=== PATIENT | female | born 1965 | race Caucasian/White ===

== ENCOUNTER → 2019-06-17 13:06 | Outpatient (BNVA) | payer MEDICAID, SELFPAY | PROVIDERS: Family Provider Family Medicine; Visit Provider Nurse Practitioner Psychiatric/Mental Health | DX: F02.81 Dementia in other diseases classified elsewhere, unspecified severity, with behavioral disturbance (principal); F10.21 Alcohol dependence, in remission; F43.12 Post-traumatic stress disorder, chronic; F31.81 Bipolar II disorder; Z87.820 Personal history of traumatic brain injury | CPT/HCPCS: 99213 ==

== ENCOUNTER → 2019-09-09 16:00 | Outpatient (BNVA) | payer MEDICAID, SELFPAY | PROVIDERS: Family Provider Family Medicine; Visit Provider Nurse Practitioner Psychiatric/Mental Health | DX: F02.81 Dementia in other diseases classified elsewhere, unspecified severity, with behavioral disturbance (principal); F43.12 Post-traumatic stress disorder, chronic; F31.81 Bipolar II disorder; F10.21 Alcohol dependence, in remission; Z87.820 Personal history of traumatic brain injury; F41.0 Panic disorder [episodic paroxysmal anxiety] | CPT/HCPCS: 99213 ==

== ENCOUNTER → 2019-12-09 09:55 | Outpatient (BNVA) | payer MEDICAID, SELFPAY | PROVIDERS: Family Provider Family Medicine; Visit Provider Nurse Practitioner Psychiatric/Mental Health | DX: F43.12 Post-traumatic stress disorder, chronic (principal); F31.81 Bipolar II disorder; F02.81 Dementia in other diseases classified elsewhere, unspecified severity, with behavioral disturbance; F10.21 Alcohol dependence, in remission; Z87.820 Personal history of traumatic brain injury | CPT/HCPCS: 99213 ==

== ENCOUNTER 2019-12-14 12:23 | Outpatient (CLI) | payer MEDICAID, SELFPAY ==
--- NOTE | 2019-12-14 12:29 | XRR_ITS ---
PROCEDURE INFORMATION: Exam: XR Chest, 2 Views Exam date and time: 12/14/2019 12:41 PM Age: 54 years old Clinical indication: Patient HX: HX of copd TECHNIQUE: Imaging protocol: XR of the chest Views: 2 views. COMPARISON: No relevant prior studies available. FINDINGS: Lungs: The lungs are hyperexpanded consistent with COPD No consolidation. Pleural space: Unremarkable. No pleural effusion. No pneumothorax. Heart/Mediastinum: Unremarkable. No cardiomegaly. Bones/joints: Dorsal spine with severe osteopenia, moderate osteoarthritis, and mild kyphosis. there is a old rib fracture right 7th posterolateral rib XR/XR chest 2V* [id number] IMPRESSION: 1. COPD 2. Negative for acute abnormality 3. Dorsal spine osteopenia, osteoarthritis, and mild kyphosis 4. Old rib fracture right 7th rib
== END 2019-12-14 12:24 | disposition home or self-care (01) ==
LOC: RAD 12:26
PROVIDERS: PCP Family Medicine; Visit Provider Internal Medicine Pulmonary Disease
DX: J44.9 Chronic obstructive pulmonary disease, unspecified (principal); M85.89 Other specified disorders of bone density and structure, multiple sites; M47.819 Spondylosis without myelopathy or radiculopathy, site unspecified; M40.299 Other kyphosis, site unspecified; S22.31XA Fracture of one rib, right side, initial encounter for closed fracture; X58.XXXA Exposure to other specified factors, initial encounter
CPT/HCPCS: 71046

== ENCOUNTER → 2020-01-09 11:14 | Outpatient (BNVA) | payer MEDICAID, SELFPAY | PROVIDERS: PCP Family Medicine; Visit Provider Internal Medicine | DX: J44.9 Chronic obstructive pulmonary disease, unspecified (principal) | CPT/HCPCS: 87635 ==

== ENCOUNTER 2020-01-11 10:09 | Outpatient (CLI) | payer MEDICAID, SELFPAY ==
[2020-01-11 10:59] VITALS: BP 143/86
--- NOTE | 2020-01-11 11:11 | PFTS_ITS ---
Date of Study:01/11/20 Date of Dictation: MECHANICS: Forced vital capacity (FVC) is reduced. Forced expiratory volume in one second (FEV1) is reduced. FEV1/FVC is reduced. FLOW VOLUME LOOP: Reduced flow at all lung volumes with significant scooping. LUNG VOLUMES: Total lung capacity (TLC) is increased. Residual volume (RV) is increased. DIFFUSING CAPACITY FOR CARBON MONOXIDE: Normal. INTERPRETATION: The pulmonary function tests are consistent with very severe airflow obstruction. The patient has significant postbronchodilator response. Lung volumes are consistent with hyperinflation and air trapping. Gas exchange (DLCO) is surprisingly normal. MTDD
== END 2020-01-11 10:10 | disposition home or self-care (01) ==
LOC: RT 10:10
PROVIDERS: PCP Family Medicine; Visit Provider Internal Medicine Pulmonary Disease
DX: J44.9 Chronic obstructive pulmonary disease, unspecified (principal)
CPT/HCPCS: 94060; 94618; 94726; 94729; J7611

== ENCOUNTER 2020-02-08 11:43 | Outpatient (CLI) | payer MEDICAID, SELFPAY ==
--- NOTE | 2020-02-08 12:00 | USCV_ITS ---
Linda Aguero Age: 55 Gender: F : 1965 Exam Date: 02/08/2020 11:51 Ordering Phys: Efraín Reynolds MD Technologist: Eileen Ni Exam Location: [facility] Indication: PHTN SOB BP: / HR: 75 Rhythm: Sinus Technical Quality: Adequate MEASUREMENTS (Male / Female) Normal Values 2D ECHO LV Diastolic Diameter PLAX 3.5 cm 4.2 - 5.9 / 3.9 - 5.3 cm LV Systolic Diameter PLAX 2.6 cm LV Chamber Size 3.0 cm IVS Diastolic Thickness 1.0 cm 0.6 - 1.0 / 0.6 - 0.9 cm IVS Systolic Thickness 1.2 cm LVPW Diastolic Thickness 1.1 cm 0.6 - 1.0 / 0.6 - 0.9 cm LVPW Systolic Thickness 1.1 cm RV Chamber Size 1.8 cm LVOT Diameter 2.0 cm LV Ejection Fraction 2D Teich 52.9 % LV Ejection Fraction MOD 2C 70.6 % LV Ejection Fraction 2C AL 70.6 % LA Diameter 2.6 cm LA Width 1.8 cm LA Height 3.3 cm RA Width 3.1 cm RA Height 3.0 cm Aorta at Sinotubular Diameter 2.8 cm M-MODE LV Diastolic Diameter MM 2.8 cm 4.2 - 5.9 / 3.9 - 5.3 cm LV Systolic Diameter MM 1.9 cm LV Ejection Fraction MM Teich 62.6 % IVS Diastolic Thickness MM 0.6 cm 0.6 - 1.0 / 0.6 - 0.9 cm IVS Systolic Thickness MM 1.0 cm LVPW Diastolic Thickness MM 0.7 cm 0.6 - 1.0 / 0.6 - 0.9 cm LVPW Systolic Thickness MM 1.3 cm RV Diastolic Diameter MM 0.8 cm Aortic Annulus Diameter 2.9 cm LA Ao Ratio MM 1.1 MV E Point Septal Separation 0.4 cm DOPPLER AV Peak Velocity 138.0 cm/s LVOT Peak Velocity 91.0 cm/s AV Area Cont Eq vti 2.4 cm squared AV Area Cont Eq pk 2.1 cm squared MV Area PHT 3.6 cm squared Mitral E to A Ratio 1.3 MV E' Velocity 54.5 cm/s Mitral E to MV E' Ratio 6.2 Mitral E to LV E' Lateral Ratio 6.0 Mitral E to LV E' Septal Ratio 6.4 TR Peak Velocity 175.0 cm/s TR Peak Gradient 12.2 mmHg TR Mean Velocity 127.7 cm/s TR Mean Gradient 7.2 mmHg TR Velocity Time Integral 38.5 cm TV Peak E Velocity 91.0 cm/s Right Atrial Pressure 3.0 mmHg Pulmonary Artery Systolic Pressu 15.2 mmHg PV Peak Velocity 60.0 cm/s RV Acceleration Time 0.1 s RV Ejection Time 0.3 s RV AcT/ET 0.5 FINDINGS Left Ventricle Normal left ventricular cavity size. Normal left ventricular systolic function. No regional wall motion abnormalities. Left ventricular ejection fraction is estimated at 62 %. Normal diastolic function. Right Ventricle The right ventricle is normal in size and function. Right Atrium The right atrium is normal in size. Left Atrium The left atrium is normal in size. Mitral Valve Structurally normal mitral valve without significant stenosis or prolapse. There is no mitral regurgitation. Aortic Valve Structurally normal aortic valve without significant sclerosis or stenosis. There is no aortic regurgitation. Tricuspid Valve Structurally normal tricuspid valve without significant stenosis or regurgitation. Pulmonary artery systolic pressure is normal. Pulmonic Valve Structurally normal pulmonic valve without significant stenosis. There is no pulmonic regurgitation. Pericardium Normal pericardium without effusion. Aorta Normal ascending aorta dimension. CONCLUSIONS 1-Normal left ventricular cavity size. Normal left ventricular systolic function. No regional wall motion abnormalities. Left ventricular ejection fraction is estimated at 62 %. Normal diastolic function. 2-No significant valve abnormalities. 3-There is no pericardial effusion. 4-Pulmonary artery systolic pressure is within normal limits. 5-Right atrial pressure is around 5 mm of mercury. 6-There are no prior echocardiogram studies to compare. Karey Hancock MD (Electronically Signed) Final Date: 09 February 2020 18:52 S
--- NOTE | 2020-02-08 13:00 | CT_ITS ---
WS: [id number] CT CHEST WITHOUT INTRAVENOUS CONTRAST HISTORY: check for parenchymal changes TECHNIQUE: Contiguous 5 mm axial imaging performed on the thorax. Coronal and sagittal reformats are submitted. All CT scans at [facility] use at least one of these dose optimization techniq ues: automated exposure control; mA and/or kV adjustment per patient size (includes targeted exams wh ere dose is matched to clinical indication); or iterative reconstruction. CONTRAST: None DLP: 316.32 mGy.cm COMPARISON: None available. Lungs and central airway: Marked pulmonary hyperexpansion. Centrilobular emphysema. No suspicious mas ses are identified. Benign granuloma in the lingula. There is no evidence for honeycombing or signifi cant reticular nodular thickening in the periphery of the lungs. Pleura: Normal. No pleural effusion. Heart and pericardium: Normal size heart with no pericardial effusion. Mediastinum and kathie: No mediastinum or hilar adenopathy. Vessels: Mild atherosclerosis aorta. No aneurysm. Chest wall and lower neck: No soft tissue masses. Upper abdomen: Large hiatal hernia. There is mild thickening of the distal esophagus beginning below the level of the giancarlo along with the hiatal hernia. Osseous structures: Mild increase in upper thoracic kyphosis. Healed rib fractures in the lateral LEF T upper thorax. Additional fracture with incomplete callus formation in the posterior RIGHT lower tho rax. CT/CT chest wo con [id number] IMPRESSION: 1. Severe centrilobular emphysema. 2. No evidence for reticular nodular lung disease or honeycombing. 3. Large hiatal hernia.
== END 2020-02-08 11:44 | disposition home or self-care (01) ==
LOC: SLEEP 11:45
PROVIDERS: PCP Family Medicine; Visit Provider Internal Medicine Pulmonary Disease
DX: G47.34 Idiopathic sleep related nonobstructive alveolar hypoventilation (principal); Z99.81 Dependence on supplemental oxygen; J44.9 Chronic obstructive pulmonary disease, unspecified; R06.02 Shortness of breath; K44.9 Diaphragmatic hernia without obstruction or gangrene
CPT/HCPCS: 71250; 93306; 94762

== ENCOUNTER → 2020-02-28 07:39 | Outpatient (BNVA) | payer MEDICAID, SELFPAY | PROVIDERS: PCP Family Medicine; Visit Provider Nurse Practitioner Psychiatric/Mental Health | DX: F43.12 Post-traumatic stress disorder, chronic (principal); F31.81 Bipolar II disorder; F10.21 Alcohol dependence, in remission; F02.81 Dementia in other diseases classified elsewhere, unspecified severity, with behavioral disturbance; Z87.820 Personal history of traumatic brain injury | CPT/HCPCS: 99213 ==

== ENCOUNTER → 2020-05-24 07:31 | Outpatient (BNVA) | payer MEDICAID, SELFPAY | PROVIDERS: PCP Family Medicine; Visit Provider Nurse Practitioner Psychiatric/Mental Health | DX: F43.12 Post-traumatic stress disorder, chronic (principal); F31.81 Bipolar II disorder; F02.81 Dementia in other diseases classified elsewhere, unspecified severity, with behavioral disturbance; F10.21 Alcohol dependence, in remission; Z79.899 Other long term (current) drug therapy | CPT/HCPCS: 99214 ==

== ENCOUNTER → 2020-08-16 08:09 | Outpatient (BNVA) | payer MEDICAID, SELFPAY | PROVIDERS: PCP Family Medicine; Visit Provider Nurse Practitioner Psychiatric/Mental Health | DX: F43.12 Post-traumatic stress disorder, chronic (principal); F02.81 Dementia in other diseases classified elsewhere, unspecified severity, with behavioral disturbance; F10.21 Alcohol dependence, in remission; F31.81 Bipolar II disorder; Z79.899 Other long term (current) drug therapy; Z87.820 Personal history of traumatic brain injury | CPT/HCPCS: 99214 ==

== ENCOUNTER 2020-08-21 20:00 | Outpatient (CLI) | payer MEDICAID, SELFPAY | END 2020-08-21 20:01 | disposition home or self-care (01) | LOC: SLEEP 08-22 10:20 | PROVIDERS: PCP Family Medicine; Visit Provider Internal Medicine Pulmonary Disease | DX: G47.33 Obstructive sleep apnea (adult) (pediatric) (principal); G47.34 Idiopathic sleep related nonobstructive alveolar hypoventilation | CPT/HCPCS: 95810 ==

== ENCOUNTER 2020-08-31 13:58 | Emergency (ER) | payer MEDICAID, SELFPAY ==
[2020-08-31] VITALS (7 sets, daily range): BP systolic 101–113; BP diastolic 74–83; PULSE 85–106; RESP 16–20; TEMP 37.6; O2SAT 94–98; BMI 20.9
--- NOTE | 2020-08-31 14:20 | XR_ITS ---
WS: [id number] Portable AP upright chest, 08/31/2020 Clinical Data: dyspnea Comparison: PA and lateral chest, 12/14/2019. Findings: No nodules, masses or effusions are seen. The heart is normal. The pulmonary vascularity is not increased. No pneumonia or pneumothorax is seen. The diaphragms are flattened. The aortic arch i s minimally tortuous. There are monitor leads on the chest wall. The old right fifth, seventh and eig hth rib fractures are noted. There are old left seventh, eighth and ninth rib fractures XR/XR chest 1V portable [id number] Impression: Atherosclerosis and hyperinflation.
--- NOTE | 2020-08-31 14:22 | ECG_ITS ---
[facility] Test Date: 2020-08-31 Pat Name: Linda Aguero Department: Room: Gender: Female Box Bender: : 1965 Requested By: Arian Pickard Order Number: [id number] Merrill MD: SABRINA RODRIGUEZ Measurements Intervals Mcgregor Rate: 100 P: 72 ME: 133 QRS: 72 QRSD: 85 T: 49 QT: 334 QTc: 433 Interpretive Statements SINUS TACHYCARDIA ABNORMAL RHYTHM ECG No previous ECG available for comparison Electronically Signed On 08-31-2020 21:19:25 CDT by SABRINA RODRIGUEZ [id number]
[2020-08-31 14:30] LABS: Basophils # 0.1 10^3/uL (0.0-0.1); Basophils % 0.3 %; Eosinophils % 0.2 %; Hematocrit 39.7 % (37.0-47.0); Hemoglobin 13.1 g/dL (11.5-15.3); Lymphocytes % 8.3 %; Mean Corpuscular Volume 90.8 fL (81-99); Monocytes # 2.1 10^3/uL (0.2-0.9); Monocytes % 8.5 %; Neutrophils # 19.92 10^3/uL (1.8-7.7); Nucleated Red Blood Cells % 0 %; Platelet Count 332 10^3/cmm (130-400); Red Blood Count 4.37 10^6/uL (4.1-5.3); Red Cell Distribution Width 12.2 % (12.1-15.1); White Blood Count 24.3 10^3/uL (4.0-10.0)
[2020-08-31 14:56] LABS: D Dimer <= 0.27 ug/mIFEU (0-0.59)
[2020-08-31] MEDS: sodium chloride 0.9% 1,000 ML 999 ML IV (14:58)
[2020-08-31 15:17] LABS: Troponin(5th) Baseline 7 ng/L (0-10)
[2020-08-31 15:23] LABS: Alanine Aminotransferase 11 U/L (0-33); Albumin Level 4.3 g/dL (3.5-5.2); Alkaline Phosphatase 89 IU/L (35-105); Anion Gap 15.2 (5-19); Aspartate Amino Transferase 18 U/L (0-32); Blood Urea Nitrogen 4 mg/dL (6-20); Calcium 8.7 mg/dL (8.5-10.5); Carbon Dioxide 31 mmol/L (22-29); Chloride 86 mmol/L (98-107); Globulin 2.5 g/dL (1.3-4.6); Glomerular Filtration Rate 232.7 mL/min (90-130); Glucose 93 mg/dL (65-115); NT Pro B Type Natriuretic Pept 152 pg/mL (0-125); Osmolality Calculated 263 mOsm/kg (285-295); Potassium 4.2 mmol/L (3.5-5.1); Sodium 128 mmol/L (136-145); Total Bilirubin 0.3 mg/dL (0.15-1.2); Total Protein 6.8 g/dL (6.6-8.7)
[2020-08-31 15:39] LABS: Influenza A by IFA Negative (Negative); Influenza B by IFA Negative (Negative)
[2020-08-31] MEDS: ipratropium-albuterol 3 mL Neb INHALATION (15:40)
--- NOTE | 2020-08-31 15:57 | CTR_ITS ---
PROCEDURE INFORMATION: Exam: CT Head Without Contrast Exam date and time: 08/31/2020 5:33 PM Age: 55 years old Clinical indication: Pain; Patient HX: Fever, headache, SOB TECHNIQUE: Imaging protocol: Computed tomography of the head without contrast. Radiation optimization: All CT scans at this facility use at least one of these dose optimization techniques: automated exposure control; mA and/or kV adjustment per patient size (includes targeted exams where dose is matched to clinical indication); or iterative reconstruction. COMPARISON: No relevant prior studies available. RADIATION DOSE METRICS: Total DLP (mGy-cm): 843.15 FINDINGS: Brain: No evidence of acute infarct. No mass or mass effect. No intra axial hemorrhage. No extra axial fluid collection or hemorrhage. Cerebral ventricles: Symmetric and without enlargement. Bones/joints: No acute fracture. Paranasal sinuses: Visualized sinuses are well aerated. Mastoid air cells: Visualized mastoid air cells are well aerated. Soft tissues: No concerning abnormalities. CT/CT head wo con* [id number] IMPRESSION: No acute intracranial abnormality. Radiation Dose CTDIVOL = (mGy): DLP = 843.15 (mGy-cm)
--- NOTE | 2020-08-31 15:57 | CTR_ITS ---
PROCEDURE INFORMATION: Exam: CT Chest Without Contrast; Diagnostic Exam date and time: 08/31/2020 5:33 PM Age: 55 years old Clinical indication: Shortness of breath; Additional info: White count 24. Cough, SOB, fever, headache TECHNIQUE: Imaging protocol: Diagnostic computed tomography of the chest without contrast. Radiation optimization: All CT scans at this facility use at least one of these dose optimization techniques: automated exposure control; mA and/or kV adjustment per patient size (includes targeted exams where dose is matched to clinical indication); or iterative reconstruction. COMPARISON: CT chest con [id number] 02/08/2020 12:35 PM RADIATION DOSE METRICS: Total DLP (mGy-cm): 306.35 FINDINGS: Lungs: Changes of advanced centrilobular emphysema demonstrated. 4 cm focus of consolidation noted in the posterior portion of the right lower lobe, likely representing nonspecific pneumonia. 1.5 cm focus of non confluent increased density demonstrated in the left upper lobe, series 3, image 17, which may represent a 2nd focus of early pneumonia. 4 mm calcified granuloma left lower lobe. Pleural spaces: No pleural effusion or pneumothorax noted. Heart: No cardiomegaly. No pericardial effusion. Aorta: No aortic aneurysm. Lymph nodes: There is a hiatal hernia noted.No pathologically enlarged lymph nodes are demonstrated. Bones/joints: Old healed rib fractures. No acute osseous abnormality. Soft tissues: The soft tissues appear unremarkable. CT/CT chest con [id number] IMPRESSION: 1. Changes of advanced centrilobular emphysema demonstrated. 2. 4 cm focus of consolidation noted in the posterior portion of the right lower lobe, likely representing nonspecific pneumonia. 3. 1.5 cm focus of non confluent increased density demonstrated in the left upper lobe, series 3, image 17, which may represent a 2nd focus of early pneumonia. Radiation Dose CTDIVOL = (mGy): DLP = 306.35 (mGy-cm)
--- NOTE | 2020-08-31 16:02 | CTR_ITS ---
PROCEDURE INFORMATION: Exam: CT Maxillofacial Without Contrast, Sinus Exam date and time: 08/31/2020 5:33 PM Age: 55 years old Clinical indication: Pain; Patient HX: Headache, SOB, fever; Additional info: Sinus infection? TECHNIQUE: Imaging protocol: CT Maxillofacial without contrast. Focus on the sinuses. Radiation optimization: All CT scans at this facility use at least one of these dose optimization techniques: automated exposure control; mA and/or kV adjustment per patient size (includes targeted exams where dose is matched to clinical indication); or iterative reconstruction. COMPARISON: No relevant prior studies available. RADIATION DOSE METRICS: Total DLP (mGy-cm): 511.79 FINDINGS: Frontal sinuses: Normal. No air-fluid levels. Ethmoid air cells: Normal. No air-fluid levels. Sphenoid sinuses: Normal. No air-fluid levels. Maxillary sinuses: Moderate mucosal thickening. No air-fluid levels. Ostiomeatal units are narrowed, but patent. Nasal cavity/Septum: Unremarkable. Orbital cavity: Orbits are normal. Globes are unremarkable. Bones/joints: Unremarkable. Soft tissues: Unremarkable. CT/CT sinus wo con* [id number] IMPRESSION: Moderate mucosal thickening of the maxillary sinuses. No signs of acute sinusitis. Radiation Dose CTDIVOL = (mGy): DLP = 511.79 (mGy-cm)
[2020-08-31 16:17] LABS: Lactic Sepsis W/Reflex 0.7 mmol/L (0.5-2.2)
--- NOTE | 2020-08-31 16:22 | PC.PHAR ---
PT STATES SHE HAS A NURSE THAT SETS UP HER MEDICATIONS-PT BROUGHT IN HER MED BOTTLES-GOT MED LIST FROM [facility] AT HOME-MEDICATIONS ENTERED ARE FROM EXT MED HISTORY,MED LIST FROM [facility] [place] AND MEDICATION BOTTLES THE PT BROUGHT IN- NOTES ARE MADE ON EACH RX OF THE PHARMACY COMMENTS-
[2020-08-31 17:37] LABS: SARS Covid-2 Antigen Negative (Negative)
--- NOTE | 2020-08-31 19:01 | W.ED.SOB ---
HPI - SOB/Dyspnea General: Chief Complaint: Shortness of Breath/Dyspnea Stated Complaint: sob/fever Time Seen by Provider: 08/31/20 14:05 History of Present Illness: HPI Narrative: The patient is a 55-year-old female who comes to the ER complaining of fever and shortness of breath. She has COPD and chronically wears 3 L oxygen at her baseline. She has oxygen at home that she uses. She also admits headache related to coughing. Denies neck pain or stiffness. Denies chest pain. She has been complaining of sinus congestion and clogging of her nose which makes her shortness of breath worse. It has just cleared prior to coming to the ER and she does feel better from that aspect. MD elicited complaint: shortness of breath and cough Pertinent past history: COPD Severity: moderate Exacerbating factors: exertion Known history of: COPD Associated symptoms: Reports cough and fever(s); Deny chest pain, dizziness, extremity pain, nausea, polyuria or vomiting Treatment prior to arrival: none Review of Systems General: Reports: 10 or more systems reviewed and unremarkable except in HPI and below Const: Reports: fever(s), chills and fatigue Eyes: Denies: change in vision, blurry vision or eye redness ENMT: Denies: throat pain, swelling of lips/tongue, ear or mastoid pain or nasal congestion Card: Denies: chest pain Resp: Reports: dyspnea and non-productive cough; Denies: productive cough GI: Denies: nausea or vomiting : Denies: flank pain, difficulty voiding, urinary frequency or urinary urgency Musc: Denies: neck pain, back pain, extremity pain, joint pain, joint redness, limited range of motion or muscle weakness Skin/Breast: Denies: rash, pruritus, erythema, skin pain or skin tenderness Neuro: Denies: headache(s), numbness in extremities, weakness in extremities, sensory changes, difficulty walking, dizziness, confusion or Slurred speech present Psych: Denies: anxiety or depression Endo: Denies: polyuria All/Imm: Denies: urticaria, throat swelling or tongue swelling PFSH ED PFSH: Medical History (Updated 08/31/20 @ 19:16 by Arian Pickard MD) Alcohol use disorder, moderate, in early remission Bipolar II disorder Provisional Chronic post-traumatic stress disorder Dementia associated with other underlying disease with behavioral disturbance Personal history of traumatic brain injury Social History (Updated 07/31/20 @ 11:37 by Pipe Barnes LPN) Smoking and tobacco status: former smoker Quit status (tobacco): has quit using tobacco Year quit tobacco: 2018 - 2PPD x 35 Years Second hand smoke exposure: Yes Smoking risk assessment/counseling performed?: No Alcohol intake: never Lives independently: Yes Household members: family Marital status: Current occupational status: disabled Pets and animals: No History of recent travel: No Current gender identity: Female Physical Exam Narrative: EXAM NARRATIVE: Elevated temperature 99.7 on arrival. 98.1 just before she left. Const: COMMON NORMALS: no acute distress, average body habitus, patient oriented x3, no limitations, healthy appearing, alert and well nourished GENERAL APPEARANCE: cooperative, comfortable, well kempt and well developed ORIENTATION/CONSCIOUSNESS: Yes awake, Yes oriented to person, Yes oriented to place and Yes oriented to time HENMT: COMMON NORMALS: normocephalic, external ears normal and Normal external nose present HEAD & SCALP: normal to inspection and normocephalic NOSE: Normal external nose present EXTERNAL EAR: Yes external ears normal MOUTH: Normal oral and palatal mucosa present THROAT: posterior oropharynx normal Eye: COMMON NORMALS: Equal, round and reactive pupils present and EOMs intact bilaterally GENERAL EYE: appearance normal, both eyes and all related structures PUPIL: Yes Equal, round and reactive pupils present Neck/C-Spine: COMMON NORMALS: full ROM, no lymphadenopathy, no meningeal signs and no JVD GENERAL: Yes normal visual inspection Lymph: LYMPHATIC: no lymphadenopathy noted Chest: COMMONS NORMALS: normal inspection of the chest and normal palpation of entire chest wall Resp: COMMON NORMALS: normal respiratory effort, No retractions, No use of accessory muscles, clear to auscultation bilaterally and percussion normal EFFORT & INSPECTION: Yes able to speak in complete sentences AUSCULTATION: clear to auscultation bilaterally and diminished lung sounds PERCUSSION: percussion normal Cardio: COMMON NORMALS: no JVD, regular rate, regular rhythm, S1 normal heart sound present, S2 normal heart sound present and Peripheral pulses 2+ throughout RATE: regular rate RHYTHM: regular rhythm HEART SOUNDS: S1 normal heart sound present and S2 normal heart sound present PERIPHERAL PULSES: Peripheral pulses 2+ throughout GI: COMMON NORMALS: Normal to inspection, nondistended, normoactive bowel sounds present, Soft to palpation, non-tender and no masses INSPECTION: Yes normal to inspection PALPATION: Yes Soft to palpation : COMMON NORMALS: Yes no CVA tenderness BLADDER/KIDNEY EXAM: Yes no CVA tenderness Back/Pelvis: COMMON NORMALS: no CVA tenderness, thoracic and lumbar spine normal to inspection, no thoracic nor lumbar tenderness and thoraco-lumbar ROM normal Extremity: COMMON NORMALS: normal to inspection, full ROM, capillary refill normal, no joint enlargement and no pedal edema GENERAL: Yes normal exam except as noted Neuro: COMMON NORMALS: patient oriented x3, CN's II-XII intact bilaterally, moves all extremities, no focal motor deficits, no sensory deficits noted and gait normal SENSORIUM/ORIENTATION: Yes alert, Yes oriented to person, Yes oriented to place and Yes oriented to time MENINGEAL SIGNS: Yes no meningeal signs Psych: COMMON NORMALS: mental status grossly normal, Normal thought process present, cooperative, normal affect and speech normal APPEARANCE: Yes well kempt ATTITUDE: Yes calm SPEECH: Yes normal speech THOUGHT PROCESS: Normal thought process present Skin: COMMON NORMALS: no rashes or lesions noted GENERAL SKIN EXAM: no rashes or lesions noted Course Vital Signs: Vital signs: Vital Signs Temperature 99.7 F H 08/31/20 14:03 Pulse Rate 103 H 08/31/20 17:04 Respiratory Rate 20 H 08/31/20 17:04 Blood Pressure 106/76 08/31/20 17:04 Pulse Oximetry 94 08/31/20 17:04 MDM - SOB/Dyspnea MDM Narrative: Medical decision making narrative: Patient comes in complaining of shortness of breath with a white count of 24, temp 99 7. She is in no respiratory distress wearing her baseline 3 L. She complains of nasal congestion, cough, and shortness of breath. She was given a neb which did help with her shortness of breath and she is back to her baseline. Also given Solu-Medrol. CT of her chest does show a couple areas of focal pneumonia. CT of her head is normal and CT of her sinus does show some mucosal thickening. She was given levofloxacin 750 mg and recommended she take that daily with a Medrol Dosepak, and albuterol to help with her shortness of breath. Return to the ER at anytime with worsening symptoms and follow-up with primary care doctor Thursday to get her white count and sodium rechecked. Slightly low sodium at 128. Discussed with her the causes of this are unknown and she should get it rechecked Thursday. She will do so. Lab Data: Labs: Lab Results 08/31/20 08/31/20 08/31/20 Range/Units 13:35 13:35 13:35 WBC 24.3 H (4.0-10.0) 10^3/ uL RBC 4.37 (4.1-5.3) 10^6/u L Hgb 13.1 (11.5-15.3) g/dL Hct 39.7 (37.0-47.0) % MCV 90.8 (81-99) fL MCH 30.0 (28.0-34.0) pg MCHC 33.0 (30.0-36.0) g/dL RDW 12.2 (12.1-15.1) % Plt Count 332 (130-400) 10^3/c mm MPV 10.0 (7.4-10.4) fL Neut % (Auto) 82.0 % Lymph % (Auto) 8.3 % [place] % (Auto) 8.5 % Eos % (Auto) 0.2 % Baso % (Auto) 0.3 % Neut # (Auto) 19.92 H (1.8-7.7) 10^3/u L Lymph # (Auto) 2.0 (0.8-4.8) 10^3/u L [place] # (Auto) 2.1 H (0.2-0.9) 10^3/u L Eos # (Auto) 0.0 (0.0-0.8) 10^3/u L Baso # (Auto) 0.1 (0.0-0.1) 10^3/u L Nucleated RBC % (a uto) 0 % Nucleated RBCs # 0.0 /100WBC D-Dimer <= 0.27 (0-0.59) ug/mIFE U Sodium 128 L (136-145) mmol/L Potassium 4.2 (3.5-5.1) mmol/L Chloride 86 L (98-107) mmol/L Carbon Dioxide 31 H (22-29) mmol/L Anion Gap 15.2 (5-19) BUN 4 L (6-20) mg/dL Creatinine 0.3 L (0.5-0.9) mg/dL GFR Calculation 232.7 H (90-130) mL/min Glucose 93 (65-115) mg/dL Calculated Osmolal ity 263 L (285-295) mOsm/k g Lactic Acid Calcium 8.7 (8.5-10.5) mg/dL Total Bilirubin 0.3 (0.15-1.2) mg/dL AST 18 (0-32) U/L ALT 11 (0-33) U/L Alkaline Phosphata se 89 (35-105) IU/L Troponin T Baselin e (0-10) ng/L Troponin T 120 Min [place] (0-10) ng/L Delta Troponin T (0-10) ABS# NT-Pro-B Natriuret Pep 152 H (0-125) pg/mL Total Protein 6.8 (6.6-8.7) g/dL Albumin 4.3 (3.5-5.2) g/dL Globulin 2.5 (1.3-4.6) g/dL Influenza Type A A g (Negative) Influenza Type B A g (Negative) SARS-CoV-2 Ag (Rap id) (Negative) 08/31/20 08/31/20 08/31/20 Range/Units 13:35 14:40 15:02 WBC (4.0-10.0) 10^3/ uL RBC (4.1-5.3) 10^6/u L Hgb (11.5-15.3) g/dL Hct (37.0-47.0) % MCV (81-99) fL MCH (28.0-34.0) pg MCHC (30.0-36.0) g/dL RDW (12.1-15.1) % Plt Count (130-400) 10^3/c mm MPV (7.4-10.4) fL Neut % (Auto) % Lymph % (Auto) % [place] % (Auto) % Eos % (Auto) % Baso % (Auto) % Neut # (Auto) (1.8-7.7) 10^3/u L Lymph # (Auto) (0.8-4.8) 10^3/u L [place] # (Auto) (0.2-0.9) 10^3/u L Eos # (Auto) (0.0-0.8) 10^3/u L Baso # (Auto) (0.0-0.1) 10^3/u L Nucleated RBC % (a uto) % Nucleated RBCs # /100WBC D-Dimer (0-0.59) ug/mIFE U Sodium (136-145) mmol/L Potassium (3.5-5.1) mmol/L Chloride (98-107) mmol/L Carbon Dioxide (22-29) mmol/L Anion Gap (5-19) BUN (6-20) mg/dL Creatinine (0.5-0.9) mg/dL GFR Calculation (90-130) mL/min Glucose (65-115) mg/dL Calculated Osmolal ity (285-295) mOsm/k g Lactic Acid Cancelled Calcium (8.5-10.5) mg/dL Total Bilirubin (0.15-1.2) mg/dL AST (0-32) U/L ALT (0-33) U/L Alkaline Phosphata se (35-105) IU/L Troponin T Baselin e 7 (0-10) ng/L Troponin T 120 Min [place] (0-10) ng/L Delta Troponin T (0-10) ABS# NT-Pro-B Natriuret Pep (0-125) pg/mL Total Protein (6.6-8.7) g/dL Albumin (3.5-5.2) g/dL Globulin (1.3-4.6) g/dL Influenza Type A A g Negative (Negative) Influenza Type B A g Negative (Negative) SARS-CoV-2 Ag (Rap id) (Negative) 08/31/20 08/31/20 08/31/20 Range/Units 15:30 15:40 17:10 WBC (4.0-10.0) 10^3/ uL RBC (4.1-5.3) 10^6/u L Hgb (11.5-15.3) g/dL Hct (37.0-47.0) % MCV (81-99) fL MCH (28.0-34.0) pg MCHC (30.0-36.0) g/dL RDW (12.1-15.1) % Plt Count (130-400) 10^3/c mm MPV (7.4-10.4) fL Neut % (Auto) % Lymph % (Auto) % [place] % (Auto) % Eos % (Auto) % Baso % (Auto) % Neut # (Auto) (1.8-7.7) 10^3/u L Lymph # (Auto) (0.8-4.8) 10^3/u L [place] # (Auto) (0.2-0.9) 10^3/u L Eos # (Auto) (0.0-0.8) 10^3/u L Baso # (Auto) (0.0-0.1) 10^3/u L Nucleated RBC % (a uto) % Nucleated RBCs # /100WBC D-Dimer (0-0.59) ug/mIFE U Sodium (136-145) mmol/L Potassium (3.5-5.1) mmol/L Chloride (98-107) mmol/L Carbon Dioxide (22-29) mmol/L Anion Gap (5-19) BUN (6-20) mg/dL Creatinine (0.5-0.9) mg/dL GFR Calculation (90-130) mL/min Glucose (65-115) mg/dL Calculated Osmolal ity (285-295) mOsm/k g Lactic Acid 0.7 Calcium (8.5-10.5) mg/dL Total Bilirubin (0.15-1.2) mg/dL AST (0-32) U/L ALT (0-33) U/L Alkaline Phosphata se (35-105) IU/L Troponin T Baselin e (0-10) ng/L Troponin T 120 Min [place] 6.00 (0-10) ng/L Delta Troponin T -1.00 L (0-10) ABS# NT-Pro-B Natriuret Pep (0-125) pg/mL Total Protein (6.6-8.7) g/dL Albumin (3.5-5.2) g/dL Globulin (1.3-4.6) g/dL Influenza Type A A g (Negative) Influenza Type B A g (Negative) SARS-CoV-2 Ag (Rap id) Negative (Negative) Discharge Plan Discharge Patient Disposition: Home Clinical Impression: Community acquired pneumonia, Hyponatremia Condition: Stable Prescriptions: New levofloxacin 750 mg tablet 750 mg PO DAILY 10 Days Qty: 10 RF: 0 Medrol ([place]an) 4 mg tablets,dose pack See Rx Instructions .ROUTE .COMPLEX Qty: 21 RF: 0 albuterol sulfate 90 mcg/actuation HFA aerosol inhaler 2 inh inhalation Q6H PRN (Reason: shortness of breath or wheezing) 30 Days RF: 0 No Action lamotrigine [Lamictal] 150 mg tablet 150 mg PO BID RF: 0 topiramate [Topamax] 100 mg tablet 100 mg PO BID RF: 0 memantine [Namenda] 10 mg tablet 10 mg PO BID RF: 0 donepezil [Aricept] 10 mg tablet 10 mg PO BEDTIME RF: 0 tizanidine 4 mg capsule 4 mg PO BEDTIME PRN (Reason: Muscle Spasm) RF: 0 aspirin [Adult Low Dose Aspirin] 81 mg tablet,delayed release (DR/EC) 81 mg PO DAILY RF: 0 Combivent Respimat 20-100 mcg/actuation mist 1 puff INHALATION Q4H PRN (Reason: Shortness Of Breath) RF: 0 meloxicam 15 mg tablet 15 mg PO DAILY RF: 0 ipratropium-albuterol 0.5 mg-3 mg(2.5 mg base)/3 mL solution for nebulization 3 ml INHALATION TID PRN (Reason: Shortness Of Breath) RF: 0 albuterol sulfate [Ventolin HFA] 90 mcg/actuation HFA aerosol inhaler 2 puff INHALATION Q6H PRN (Reason: Shortness Of Breath) RF: 0 aripiprazole [Abilify] 20 mg tablet 20 mg PO QAM Qty: 30 RF: 4 buspirone 15 mg tablet 15 mg PO TID Qty: 90 RF: 4 fluoxetine [Prozac] 40 mg capsule 40 mg PO QAM Qty: 30 RF: 4 Benadryl 25 mg capsule 25 mg PO QAM PRN (Reason: anxiety) RF: 0 Pulmicort 0.5 mg/2 mL suspension for nebulization 0.5 mg inhalation DAILY RF: 0 Perforomist 20 mcg/2 mL solution for nebulization 2 ml inhalation BID RF: 0 Advair Diskus 250-50 mcg/dose Blister With Device 1 inh INHALATION BID RF: 0 Zantac 150 mg Tablet See Rx Instructions .ROUTE .COMPLEX RF: 0 Colace 100 mg Capsule 100 mg PO BID RF: 0 Prilosec 20 mg Capsule,Delayed Release(Dr/Ec) 20 mg PO DAILY RF: 0 montelukast 10 mg Tablet 10 mg PO BEDTIME RF: 0 Flonase 50 mcg/actuation Olar,Suspension 1 spray INTRANASAL DAILY RF: 0 Claritin 10 mg Tablet 10 mg PO DAILY RF: 0 trazodone 50 mg tablet 50 - 100 mg PO BEDTIME PRN (Reason: sleep) RF: 0 Discharge Orders: Discharge ED (Routine); Ordered 08/31/20 Ordered By: Arian Pickard Referrals: Quirino Rios [Primary Care Provider] - Discharge Diet: Advance as tolerated Discharge Activity: Resume usual activity Patient Instructions: Opioid Safety Activity Restrictions/Additional Instructions: Pneumonia: Your CT of your chest shows a couple areas of pneumonia which is likely the cause of your increasing shortness of breath, coughing, fevers. Please take the antibiotic and the steroid to help with your lungs as well. I have also added an albuterol prescription to help you if you get short of breath. You may fill this if you need it. Take the medications as directed and return to the ER with worsening symptoms otherwise follow-up with your primary care physician Thursday or Thursday for a checkup. Also make sure to recheck your white blood cell count as it is elevated significantly to 24. This can be elevated because of infection but also because of the steroids you take. Return to the ER at anytime with worsening symptoms or increasing shortness of breath, fevers, or chest pain. Coding Level of Care Code ED [employer] Opener Verifier Packer for Mariel Serna
[2020-08-31] MEDS: levoFLOXacin 750 mg Tablet PO (19:16)
== END 2020-08-31 19:28 | disposition home or self-care (01) ==
PROVIDERS: Emergency Provider Family Medicine; PCP Family Medicine
DX: J18.9 Pneumonia, unspecified organism (principal); E87.1 Hypo-osmolality and hyponatremia; Z79.82 Long term (current) use of aspirin; F03.90 Unspecified dementia, unspecified severity, without behavioral disturbance, psychotic disturbance, mood disturbance, and anxiety; Z87.891 Personal history of nicotine dependence
CPT/HCPCS: 36415; 70450; 70486; 71045; 71250; 80053; 83605; 83880; 84484; 85025; 85378; 87426; 87804; 93005; 94640; 96361; 96374; 99284; J2930; J7030

== ENCOUNTER → 2020-09-19 09:44 | Outpatient (BNVA) | payer MEDICAID, SELFPAY | PROVIDERS: PCP Family Medicine; Visit Provider Nurse Practitioner Psychiatric/Mental Health | DX: Z79.899 Other long term (current) drug therapy (principal) | CPT/HCPCS: 80053; 80061; 83036 ==

== ENCOUNTER → 2020-11-15 07:15 | Outpatient (BNVA) | payer MEDICAID, SELFPAY | PROVIDERS: PCP Family Medicine; Visit Provider Nurse Practitioner Psychiatric/Mental Health | DX: F02.81 Dementia in other diseases classified elsewhere, unspecified severity, with behavioral disturbance (principal); F10.21 Alcohol dependence, in remission; F43.12 Post-traumatic stress disorder, chronic; F31.81 Bipolar II disorder; Z79.899 Other long term (current) drug therapy; Z87.820 Personal history of traumatic brain injury | CPT/HCPCS: 99214 ==

== ENCOUNTER → 2020-12-20 08:06 | Outpatient (BNVA) | payer MEDICAID, SELFPAY | PROVIDERS: PCP Family Medicine; Visit Provider Nurse Practitioner Psychiatric/Mental Health | DX: F02.81 Dementia in other diseases classified elsewhere, unspecified severity, with behavioral disturbance (principal); F43.12 Post-traumatic stress disorder, chronic; F31.81 Bipolar II disorder; F10.21 Alcohol dependence, in remission; Z79.899 Other long term (current) drug therapy; Z87.820 Personal history of traumatic brain injury | CPT/HCPCS: 99214 ==

== ENCOUNTER → 2021-01-18 07:22 | Outpatient (BNVA) | payer MEDICAID, SELFPAY | PROVIDERS: PCP Family Medicine; Visit Provider Nurse Practitioner Psychiatric/Mental Health | DX: Z79.899 Other long term (current) drug therapy (principal); F02.81 Dementia in other diseases classified elsewhere, unspecified severity, with behavioral disturbance; F10.21 Alcohol dependence, in remission; F43.12 Post-traumatic stress disorder, chronic; F31.81 Bipolar II disorder; Z87.820 Personal history of traumatic brain injury | CPT/HCPCS: 99214 ==

== ENCOUNTER → 2021-04-01 11:35 | Outpatient (BNVA) | payer MEDICAID, SELFPAY | PROVIDERS: PCP Family Medicine; Visit Provider Podiatrist Foot & Ankle Surgery | DX: S91.301A Unspecified open wound, right foot, initial encounter (principal); X58.XXXA Exposure to other specified factors, initial encounter; R60.0 Localized edema | CPT/HCPCS: 73630 ==

== ENCOUNTER → 2021-04-09 07:28 | Outpatient (BNVA) | payer MEDICAID, SELFPAY | PROVIDERS: PCP Family Medicine; Visit Provider Nurse Practitioner Psychiatric/Mental Health | DX: Z79.899 Other long term (current) drug therapy (principal); F02.81 Dementia in other diseases classified elsewhere, unspecified severity, with behavioral disturbance; F10.21 Alcohol dependence, in remission; F31.81 Bipolar II disorder; F43.12 Post-traumatic stress disorder, chronic; Z87.820 Personal history of traumatic brain injury | CPT/HCPCS: 99214 ==

== ENCOUNTER → 2021-05-07 07:39 | Outpatient (BNVA) | payer MEDICAID, SELFPAY | PROVIDERS: PCP Family Medicine; Visit Provider Nurse Practitioner Psychiatric/Mental Health | DX: F31.81 Bipolar II disorder (principal); F43.12 Post-traumatic stress disorder, chronic; F02.81 Dementia in other diseases classified elsewhere, unspecified severity, with behavioral disturbance; F10.21 Alcohol dependence, in remission; Z87.820 Personal history of traumatic brain injury | CPT/HCPCS: 99214 ==

== ENCOUNTER → 2021-06-04 07:30 | Outpatient (BNVA) | payer MEDICAID, SELFPAY | PROVIDERS: PCP Family Medicine; Visit Provider Nurse Practitioner Psychiatric/Mental Health | DX: F31.81 Bipolar II disorder (principal); F43.12 Post-traumatic stress disorder, chronic; F02.81 Dementia in other diseases classified elsewhere, unspecified severity, with behavioral disturbance; F10.21 Alcohol dependence, in remission; Z87.820 Personal history of traumatic brain injury | CPT/HCPCS: 99214 ==

== ENCOUNTER → 2021-07-03 07:27 | Outpatient (BNVA) | payer MEDICAID, SELFPAY | PROVIDERS: PCP Family Medicine; Visit Provider Nurse Practitioner Psychiatric/Mental Health | DX: F31.81 Bipolar II disorder (principal); F43.12 Post-traumatic stress disorder, chronic; F02.81 Dementia in other diseases classified elsewhere, unspecified severity, with behavioral disturbance; F10.21 Alcohol dependence, in remission; Z87.820 Personal history of traumatic brain injury | CPT/HCPCS: 99214 ==

== ENCOUNTER → 2021-08-19 15:30 | Outpatient (BNVA) | payer MEDICAID, SELFPAY | PROVIDERS: PCP Family Medicine; Visit Provider Nurse Practitioner Psychiatric/Mental Health | DX: Z03.89 Encounter for observation for other suspected diseases and conditions ruled out (principal); F31.81 Bipolar II disorder; F02.81 Dementia in other diseases classified elsewhere, unspecified severity, with behavioral disturbance; F10.21 Alcohol dependence, in remission; F43.12 Post-traumatic stress disorder, chronic; Z87.820 Personal history of traumatic brain injury | CPT/HCPCS: 99214 ==

== ENCOUNTER → 2021-09-23 14:43 | Outpatient (BNVA) | payer MEDICAID, SELFPAY | PROVIDERS: PCP Family Medicine; Visit Provider Nurse Practitioner Psychiatric/Mental Health | DX: F31.81 Bipolar II disorder (principal); F02.81 Dementia in other diseases classified elsewhere, unspecified severity, with behavioral disturbance; F10.21 Alcohol dependence, in remission; F43.12 Post-traumatic stress disorder, chronic; Z87.820 Personal history of traumatic brain injury | CPT/HCPCS: 99214 ==

== ENCOUNTER → 2021-10-02 09:59 | Outpatient (BNVA) | payer MEDICAID, SELFPAY | PROVIDERS: PCP Family Medicine; Visit Provider Internal Medicine Pulmonary Disease | DX: J44.9 Chronic obstructive pulmonary disease, unspecified (principal); Z99.81 Dependence on supplemental oxygen; G47.34 Idiopathic sleep related nonobstructive alveolar hypoventilation; J30.9 Allergic rhinitis, unspecified; Z01.818 Encounter for other preprocedural examination; G47.33 Obstructive sleep apnea (adult) (pediatric); U09.9 Post COVID-19 condition, unspecified; Z87.891 Personal history of nicotine dependence | CPT/HCPCS: 80053; 82103; 99214 ==

== ENCOUNTER 2022-01-02 13:22 | Outpatient (CLI) | payer MEDICAID, SELFPAY ==
--- NOTE | 2022-01-02 13:15 | CT_ITS ---
WS: [id number] LDCT LUNG CANCER SCREENING TECHNIQUE: Noncontrast CT of the chest with coronal and sagittal reformatted images. CLINICAL INFORMATION: lung screenin COMPARISON: CT chest August 31, 2020 DLP: 72.01 mGy.cm DIvol: Mean CTDIvol: 1.60 (mGy) All CT scans at [facility] use at least one of these dose optimization techniques: automat ed exposure control; mA and/or kV adjustment per patient size (includes targeted exams where dose is matched to clinical indication); or iterative reconstruction. FINDINGS: Advanced chronic emphysematous changes. Small esophageal hiatal hernia. A few calcified granulomas. P revious described pulmonary opacities in the RIGHT lower lobe and LEFT upper lobe have resolved. No f ocal pneumonia or pleural fluid. Mild bronchiectasis. Slight hazy atelectasis in the lower lobes medi ally. Slight atelectasis or fibrosis in RIGHT upper lobe anteriorly. No suspicious pulmonary parenchy mal opacities. Normal caliber thoracic aorta. No mediastinal or hilar lymphadenopathy. No axillary lymphadenopathy. Adrenal glands are normal. Moderate esophageal hiatal hernia. CT/CT lung screening [id number] IMPRESSION: LUNG-RADS: 2-Benign Appearance or Behavior FOLLOW UP: 12 Month: Continue annual screening with LDCT
== END 2022-01-02 13:23 | disposition home or self-care (01) ==
PROVIDERS: Visit Provider Internal Medicine Pulmonary Disease
DX: Z12.2 Encounter for screening for malignant neoplasm of respiratory organs (principal); Z87.891 Personal history of nicotine dependence
CPT/HCPCS: 71271

== ENCOUNTER → 2022-06-09 16:14 | Outpatient (BNVA) | payer MEDICAID, SELFPAY | PROVIDERS: PCP Family Medicine; Visit Provider Family Medicine | DX: Z12.4 Encounter for screening for malignant neoplasm of cervix (principal); Z12.11 Encounter for screening for malignant neoplasm of colon; Z12.12 Encounter for screening for malignant neoplasm of rectum; Z79.899 Other long term (current) drug therapy; M54.32 Sciatica, left side; M54.50 Low back pain, unspecified; J44.9 Chronic obstructive pulmonary disease, unspecified; F31.81 Bipolar II disorder; Z99.81 Dependence on supplemental oxygen; Z87.820 Personal history of traumatic brain injury; M21.621 Bunionette of right foot; Z12.39 Encounter for other screening for malignant neoplasm of breast; J30.9 Allergic rhinitis, unspecified; M21.622 Bunionette of left foot | CPT/HCPCS: 80053; 80061; 84439; 84443; 85025 ==

== ENCOUNTER → 2022-06-18 11:03 | Outpatient (BNVA) | payer MEDICAID, SELFPAY | PROVIDERS: PCP Family Medicine; Visit Provider Podiatrist Foot & Ankle Surgery | DX: L97.511 Non-pressure chronic ulcer of other part of right foot limited to breakdown of skin (principal); M21.621 Bunionette of right foot; M21.622 Bunionette of left foot; M20.41 Other hammer toe(s) (acquired), right foot | CPT/HCPCS: 99213 ==

== ENCOUNTER → 2022-07-03 10:31 | Outpatient (BNVA) | payer MEDICAID, SELFPAY | PROVIDERS: PCP Family Medicine; Visit Provider Anesthesiology Pain Medicine | DX: M54.50 Low back pain, unspecified (principal); M79.605 Pain in left leg; M79.604 Pain in right leg | CPT/HCPCS: 72110; 99204 ==

== ENCOUNTER 2022-07-25 14:26 | Outpatient (CLI) | payer MEDICAID, SELFPAY ==
--- NOTE | 2022-07-25 14:30 | MR_ITS ---
WS: [id number] MRI LUMBAR SPINE NONCONTRAST HISTORY: Sacral and low back pain. Increasing. COMPARISON: Lumbar spine radiographs 07/03/2022. TECHNIQUE: Sagittal and axial multisequence imaging is submitted. Motion artifact as patient was coug emily throughout this examination and unable to control it. Moderate increase in thoracic kyphosis centered in the upper thoracic spine. Straightening of the normal lumbar lordosis. No marrow edema or fracture. Disc spaces and vertebral body heights are well-preserved. Conus terminates normally at L1. L1-L2: Normal. L2-L3: Normal. L3-L4: Very minimal facet joint arthritis. L4-L5: Very minimal annular disc bulging. Mild facet joint arthritis. No stenosis or disc protrusions . L5-S1: Very mild annular disc bulging with no stenosis. Paravertebral soft tissues are negative. MR/MR lumbar spine wo con* [id number] IMPRESSION: 1. No significant central or foraminal stenosis. No disc protrusions. 2. Very minimal facet joint arthritis at L3-4 to L5-S1.
== END 2022-07-25 14:27 | disposition home or self-care (01) ==
PROVIDERS: PCP Family Medicine; Visit Provider Anesthesiology Pain Medicine
DX: M48.062 Spinal stenosis, lumbar region with neurogenic claudication (principal); M47.816 Spondylosis without myelopathy or radiculopathy, lumbar region
CPT/HCPCS: 72148

== ENCOUNTER → 2022-08-04 09:14 | Outpatient (BNVA) | payer MEDICAID, SELFPAY | PROVIDERS: PCP Family Medicine; Visit Provider Anesthesiology Pain Medicine | DX: M47.816 Spondylosis without myelopathy or radiculopathy, lumbar region (principal) | CPT/HCPCS: 99214 ==

== ENCOUNTER 2022-08-06 13:03 | Outpatient (CLI) | payer MEDICAID, SELFPAY ==
--- NOTE | 2022-08-06 13:10 | MM_ITS ---
WS: [id number] BILATERAL 3D TOMOSYNTHESIS DIGITAL SCREENING MAMMOGRAPHY WITH CAD CLINICAL INFORMATION: SCREENING HISTORY: Screening mammogram. No current complaints. COMPARISON: 2018 TECHNIQUE: Bilateral CC and MLO views. FINDINGS: The breasts are composed of heterogeneous fibroglandular density tissue, which can limit the detectio n of small underlying mass lesions. No suspicious mass, asymmetry, calcifications, or architectural d istortion. No evidence of malignancy. Incidental punctate and lucent centered calcifications. MM/[place] [id number] IMPRESSION: BI-RADS: 2-Benign FOLLOW UP: 1 Year Follow-up Recommend return to annual screening mammography.
== END 2022-08-06 13:04 | disposition home or self-care (01) ==
LOC: RAD 13:04
PROVIDERS: PCP Family Medicine; Visit Provider Family Medicine
DX: Z12.31 Encounter for screening mammogram for malignant neoplasm of breast (principal)
CPT/HCPCS: 77063; 77067

== ENCOUNTER 2022-08-29 10:10 | Outpatient (CLI) | payer MEDICAID, SELFPAY ==
[2022-08-29 11:05] LABS: SARS Covid-2 Antigen Negative
== END 2022-08-29 10:11 | disposition home or self-care (01) ==
PROVIDERS: PCP Family Medicine; Visit Provider Internal Medicine
DX: J43.2 Centrilobular emphysema (principal); Z11.52 Encounter for screening for COVID-19
CPT/HCPCS: 87426

== ENCOUNTER 2022-12-05 17:03 | Emergency (ER) | payer MEDICAID, SELFPAY ==
--- NOTE | 2022-12-05 17:05 | ED_ITS ---
Documented by User: Damion Taveras DO 12/06/22 07:22 HPI - Seizure General: Chief Complaint: Seizure Stated Complaint: seizures Time Seen by Provider: 12/05/22 17:05 Source: patient Mode of arrival: EMS History of Present Illness: HPI Narrative: 57-year-old female presents emergency room with complaint of seizures. She reports she had seizure-like activity while she was visiting with a home health nurse but she remained awake to the entire episode between the episodes with completely cognizant. No trauma no falls no injuries states she has been very stressed out lately. She does have a history of seizure she was recently on hospice but then taken off has not resumed all of her other medications she been on topiramate before. She states she has only been using Ativan and morphine when she was using when she was on hospice. She denies chest pain she does have a history of COPD which presumably she was on hospice for she does not require oxygen and is satting normal on room air. MD complaint: possible seizure Onset (ago): hour(s) Witnessed: Yes - by Bystander Trauma: No Seizure History: Yes Place: Home Possible Precipitating Event: none and medication Associated symptoms: Deny chest pain, chills, confusion, cough, diaphoresis, fever(s), anorexia, malaise, rash, short of breath, syncope, weakness or other Review of Systems Const: Denies: fever(s), chills, fatigue, malaise or diaphoresis ENMT: Denies: nasal congestion Card: Denies: chest pain or syncope Resp: Denies: dyspnea, productive cough or non-productive cough GI: Denies: abdominal pain, nausea, vomiting, hematemesis, coffee ground emesis, diarrhea, constipation, bloating, hematochezia or melena : Denies: flank pain, difficulty voiding, dysuria, urinary frequency or urinary urgency Skin/Breast: Denies: rash or pruritus Neuro: Denies: confusion PFSH ED PFSH: Medical History Bipolar II disorder Provisional Chronic post-traumatic stress disorder COPD (chronic obstructive pulmonary disease) Dementia associated with other underlying disease with behavioral disturbance End stage COPD Lower respiratory infection Personal history of traumatic brain injury Protein-calorie malnutrition, moderate Psychiatric care Seasonal allergies Surgical History History of bilateral tubal ligation History of History of colonoscopy Family History Mother Cancer colon Father Cancer prostate Family/Other Cancer maternal and paternal aunts and uncles--lung Other Anesthesia complication CAD (coronary artery disease) Dementia Lung disease Psychiatric illness Denies family history of Diabetes Clotting disorder Hyperlipidemia Chronic kidney disease (CKD) Bleeding disorder Hypertension Stroke Social History Smoking and tobacco status: former smoker Quit status (tobacco): has quit using tobacco Year quit tobacco: 2018 - 2PPD x 35 Years Second hand smoke exposure: Yes Smoking risk assessment/counseling performed?: No Alcohol intake: former Substance/Drug Use: never Lives independently: Yes Household members: family Marital status: Current occupational status: disabled Pets and animals: No Do you think of yourself as: Straight/Heterosexual Current gender identity: Female Special michael needs: No Agree to transfusion: Yes Physical Exam Const: GENERAL APPEARANCE: cooperative and comfortable ORIENTATION/CONSCIOUSNESS: Yes awake, Yes oriented to person, Yes oriented to place and Yes oriented to time HENMT: COMMON NORMALS: normocephalic, atraumatic and hearing grossly normal bilaterally HEAD & SCALP: normocephalic and atraumatic Resp: COMMON NORMALS: normal respiratory effort, No retractions, No use of accessory muscles and clear to auscultation bilaterally AUSCULTATION: clear to auscultation bilaterally Cardio: COMMON NORMALS: regular rate, regular rhythm and No murmurs present (Cardio) RATE: regular rate RHYTHM: regular rhythm GI: COMMON NORMALS: Soft to palpation and No hepatosplenomegaly present AUSCULTATION: Yes normoactive bowel sounds PALPATION: Yes Soft to palpation, No Tenderness to palpation present (GI), No Guarding due to palpation present (GI) and Yes No hepatosplenomegaly present Extremity: COMMON NORMALS: normal to inspection, capillary refill normal, no clubbing, cyanosis or edema, no calf tenderness and no pedal edema Neuro: SENSORIUM/ORIENTATION: Yes oriented to person, Yes oriented to place and Yes oriented to time Skin: COMMON NORMALS: no rashes or lesions noted GENERAL SKIN EXAM: no rashes or lesions noted Course Vital Signs: Vital signs: Vital Signs Pulse Rate 100 12/05/22 20:54 Respiratory Rate 16 12/05/22 20:54 Blood Pressure 97/73 12/05/22 20:54 Pulse Oximetry 99 12/05/22 20:54 Oxygen Delivery Me thod Room Air 12/05/22 19:08 MDM - Seizure MDM Narrative Medical decision making narrative: UA pending. Care signed out to Dr. Cortes at change of shift. See final notes for diagnosis and disposition. 57-year-old patient checked out to me by Dr. Taveras at shift change. This lady believes she had a seizure at home. She is recovered now. I talked to her and examined her just now, and she is feeling better she says. Work-up revealed a magnesium level of 1.7. This is repleted here. She says that she has a family history of this.Other laboratory findings were not remarkable. No urinary tract infection on urinalysis. Head CT is negative. Chest x-ray is negative. She will be allowed discharge. Lab Data 12/05/22 17:32 12/05/22 17:32 Labs: Radiology Impressions Chest X-Ray 12/05/22 17:14 IMPRESSION: No acute findings. Head CT 12/05/22 18:18 IMPRESSION: No acute intracranial abnormality. Laboratory Results WBC 8.69 10^3/uL (3.29-11.43) 12/05/22 17:32 RBC 4.56 10^6/uL (3.85-5.65) 12/05/22 17:32 Hgb 13.50 g/dL (11.27-16.99) 12/05/22 17:32 Hct 42.6 % (36-47) 12/05/22 17:32 MCV 93.4 fl (85-98) 12/05/22 17:32 MCH 29.6 pg (27-33) 12/05/22 17:32 MCHC 31.7 g/dL (30-55) 12/05/22 17:32 RDW 13.3 % (12.1-15.1) 12/05/22 17:32 Plt Count 267 10^3/cmm (157-399) 12/05/22 17:32 MPV 9.8 fL (7.4-10.4) 12/05/22 17:32 Neut % (Auto) 64.5 % 12/05/22 17:32 Lymph % (Auto) 26.4 % 12/05/22 17:32 [place] % (Auto) 7.4 % 12/05/22 17:32 Eos % (Auto) 0.7 % 12/05/22 17:32 Baso % (Auto) 0.8 % 12/05/22 17:32 Neut # (Auto) 5.61 10^3/uL (1.8-7.7) 12/05/22 17:32 Lymph # (Auto) 2.3 10^3/uL (0.8-4.8) 12/05/22 17:32 [place] # (Auto) 0.6 10^3/uL (0.2-0.9) 12/05/22 17: Eos # (Auto) 0.1 10^3/uL (0.0-0.8) 12/05/22 17: Baso # (Auto) 0.1 10^3/uL (0.0-0.1) 12/05/22 17:32 Nucleated RBC % (auto) 0 % 12/05/22 17: Nucleated RBCs # 0.0 /100WBC 12/05/22 17:32 Sodium 129 mmol/L (136-145) L 12/05/22 17:32 Potassium 3.7 mmol/L (3.5-5.1) 12/05/22 17:32 Chloride 91 mmol/L (98-107) L 12/05/22 17:32 Carbon Dioxide 29 mmol/L (22-29) 12/05/22 17:32 Anion Gap 12.7 (5-19) 12/05/22 17:32 BUN 6 mg/dL (6-20) 12/05/22 17:32 Creatinine 0.4 mg/dL (0.5-0.9) L 12/05/22 17:32 GFR Calculation 165.7 mL/min (90-130) H 12/05/22 17:32 Glucose 82 mg/dL (65-115) 12/05/22 17:32 Calculated Osmolality 265 mOsm/kg (285-295) L 12/05/22 17:32 Lactic Acid 1.3 mmol/L (0.5-2.2) 12/05/22 17:32 Calcium 9.2 mg/dL (8.5-10.5) 12/05/22 17:32 Magnesium 1.2 mg/dL (1.7-2.3) L 12/05/22 17:32 Total Bilirubin 0.3 mg/dL (0.15-1.2) 12/05/22 17:32 AST 29 U/L (0-32) 12/05/22 17:32 ALT 21 U/L (0-33) 12/05/22 17:32 Alkaline Phosphatase 51 U/L (35-105) 12/05/22 17:32 Creatine Kinase 148 U/L (26-192) 12/05/22 17:32 Total Protein 6.9 g/dL (6.6-8.7) 12/05/22 17:32 Albumin 4.3 g/dL (3.5-5.2) 12/05/22 17:32 Globulin 2.6 g/dL (1.3-4.6) 12/05/22 17:32 Urine Color Colorless (Yellow) 12/05/22 18:30 Urine Appearance Clear (CLEAR) 12/05/22 18:30 Urine pH 8 (5-7) H 12/05/22 18:30 Ur Specific [place] 1.005 (1.005-1.030) 12/05/22 18:30 Urine Protein Neg (Negative) 12/05/22 18:30 Urine Glucose (UA) Norm (Normal) 12/05/22 18:30 Urine Ketones 1+ (Negative) H 12/05/22 18:30 Urine Blood Neg (Negative) 12/05/22 18:30 Urine Nitrate Negative (Negative) 12/05/22 18:30 Urine Bilirubin Neg (Negative) 12/05/22 18:30 Prot Sulfosalicylic Acd Negative (Negative) 12/05/22 18:30 Urine Urobilinogen Norm mg/dL (Negative) 12/05/22 18:30 Ur Leukocyte Esterase Negative (Negative) 12/05/22 18:30 Discharge Plan Discharge Patient Disposition: Home Clinical Impression: Seizure disorder, Hypomagnesemia Condition: Stable Prescriptions: No Action tizanidine 4 mg capsule 4 mg PO BEDTIME PRN (Reason: Muscle Spasm) aspirin [Adult Low Dose Aspirin] 81 mg tablet,delayed release (DR/EC) 81 mg PO DAILY 90 Days Qty: 90 0RF lidocaine HCl [Xylocaine] 10 mg/mL (1 %) solution 1 ml IM ONCE Qty: 1 0RF Combivent Respimat 20-100 mcg/actuation mist 1 puff inhalation Q4H PRN (Reason: shortness of breath or wheezing) Qty: 4 5RF Spiriva with HandiHaler 18 mcg capsule, w/inhalation device 1 cap inhalation DAILY Qty: 30 5RF Rx Instructions: puncture 1 cap using device; one dose = 2 inhalations ipratropium-albuterol 0.5 mg-3 mg(2.5 mg base)/3 mL solution for nebulization 3 ml inhalation QID PRN (Reason: wheezing) Qty: 180 3RF mecobalamin (vitamin B12) 1,000 mcg tablet,disintegrating 1,000 mcg sublingual DAILY Rx Instructions: place tablet under tongue and allow to dissolve for at least30 secs before swallowing (DME) wheelchair See Rx Instructions .Route .MEDSUPPLY Qty: 1 0RF Rx Instructions: As directed quetiapine [Seroquel] 25 mg tablet 12.5 mg PO TID Qty: 45 3RF Rx Instructions: Take half tablet three times per day quetiapine [Seroquel] 25 mg tablet 25 mg PO BEDTIME Qty: 30 3RF Rx Instructions: Take one tablet at bedtime memantine [Namenda] 10 mg tablet 10 mg PO BID Qty: 60 3RF Rx Instructions: Take one tablet twice per day fluoxetine [Prozac] 20 mg capsule 20 mg PO .morning Qty: 30 3RF Rx Instructions: Take one capsule every morning buspirone 15 mg tablet 15 mg PO TID Qty: 90 3RF Rx Instructions: Take one tablet three times per day topiramate [Topamax] 100 mg tablet 100 mg PO BID 90 Days Qty: 180 1RF levocetirizine [Xyzal] 5 mg tablet 5 mg PO DAILY Qty: 60 1RF olopatadine 0.7 % drops 1 drp ophthalmic (eye) DAILY PRN (Reason: itching) Qty: 5 1RF montelukast 10 mg tablet 10 mg PO DAILY Multivitamin 50 Plus Tablet 1 tab PO DAILY magnesium oxide 500 mg capsule 500 mg PO DAILY cholecalciferol (vitamin D3) 50 mcg (2,000 unit) capsule 50 mcg PO DAILY meloxicam 15 mg tablet 15 mg PO DAILY Qty: 90 0RF Marijuana PO ondansetron HCl 4 mg tablet 4 mg PO Q8H PRN (Reason: nausea and vomiting) Qty: 30 0RF fluticasone propionate 50 mcg/actuation spray,suspension 1 spray INTRANASAL DAILY Qty: 16 2RF potassium chloride 20 mEq tablet extended release 40 meq PO DAILY 5 Days Qty: 10 0RF gabapentin 100 mg capsule 100 mg PO BID 90 Days Qty: 180 1RF atorvastatin [Lipitor] 40 mg tablet 40 mg PO DAILY Qty: 30 1RF bisacodyl 10 mg suppository 10 mg [place] DAILY PRN (Reason: constipation) Qty: 5 0RF Rx Instructions: 1 suppository per rectum every day PRN for constipation. atropine 1 % drops 4 drp sublingual Q4H PRN (Reason: secretions) Qty: 5 0RF Rx Instructions: 4 drops SL q 4 hours PRN for terminal congestion/excessive secretions. ondansetron 4 mg tablet,disintegrating 4 mg translingual Q4H PRN (Reason: nausea) Qty: 5 0RF Rx Instructions: Dissolve 1 tablet under tongue every 4 hours PRN for nausea lorazepam 2 mg/mL concentrate 2 mg sublingual Q4H PRN (Reason: Anxiety/Seizure) Qty: 30 0RF Rx Instructions: 0.25ml-1ml q4H PRN Anxiety/Seizure Start 0.25ml may increase to 0.5ml-1ml q4H morphine concentrate 100 mg/5 mL (20 mg/mL) solution 20 mg sublingual DIRECTED PRN (Reason: Pain/SOB) 7 Days Qty: 60 0RF Rx Instructions: 0.25ml q6H and 0.25ml Q1H PRN Discharge Orders: Discharge ED (Routine); Ordered 12/05/22 Ordered By: Juanjo Cortes Referrals: David Buenrostro MD [Primary Care Provider] - Patient Instructions: Hypomagnesemia (ED), Recurrent Seizures in Adults (ED), Opioid Safety, Pain Management Activity Restrictions/Additional Instructions: Return for repeated episodes of seizure, worsening mental status, worsening weakness, any other concerning symptoms. Follow-up with your doctor next week. Make sure your magnesium and potassium levels stay within range. Coding Level of Care Code ED Pure Culture Operator for Chg Fwd Documented by User: Juanjo Cortes DO 12/05/22 21:34 HPI - Seizure General: Chief Complaint: Seizure Stated Complaint: seizures Time Seen by Provider: 12/05/22 17:05 PFSH ED PFSH: Medical History Bipolar II disorder Provisional Chronic post-traumatic stress disorder COPD (chronic obstructive pulmonary disease) Dementia associated with other underlying disease with behavioral disturbance End stage COPD Lower respiratory infection Personal history of traumatic brain injury Protein-calorie malnutrition, moderate Psychiatric care Seasonal allergies Surgical History History of bilateral tubal ligation History of History of colonoscopy Family History Mother Cancer colon Father Cancer prostate Family/Other Cancer maternal and paternal aunts and uncles--lung Other Anesthesia complication CAD (coronary artery disease) Dementia Lung disease Psychiatric illness Denies family history of Diabetes Clotting disorder Hyperlipidemia Chronic kidney disease (CKD) Bleeding disorder Hypertension Stroke Social History Smoking and tobacco status: former smoker Quit status (tobacco): has quit using tobacco Year quit tobacco: 2018 - 2PPD x 35 Years Second hand smoke exposure: Yes Smoking risk assessment/counseling performed?: No Alcohol intake: former Substance/Drug Use: never Lives independently: Yes Household members: family Marital status: Current occupational status: disabled Pets and animals: No Do you think of yourself as: Straight/Heterosexual Current gender identity: Female Special michael needs: No Agree to transfusion: Yes Course Vital Signs: Vital signs: Vital Signs Pulse Rate 100 12/05/22 20:54 Respiratory Rate 16 12/05/22 20:54 Blood Pressure 97/73 12/05/22 20:54 Pulse Oximetry 99 12/05/22 20:54 Oxygen Delivery Me thod Room Air 12/05/22 19:08 MDM - Seizure MDM Narrative Medical decision making narrative: 57-year-old patient checked out to me by Dr. Taveras at shift change. This lady believes she had a seizure at home. She is recovered now. I talked to her and examined her just now, and she is feeling better she says. Work-up revealed a magnesium level of 1.7. This is repleted here. She says that she has a family history of this.Other laboratory findings were not remarkable. No urinary tract infection on urinalysis. Head CT is negative. Chest x-ray is negative. She will be allowed discharge. Lab Data 12/05/22 17:32 12/05/22 17:32 Labs: Radiology Impressions Chest X-Ray 12/05/22 17:14 IMPRESSION: No acute findings. Head CT 12/05/22 18:18 IMPRESSION: No acute intracranial abnormality. Laboratory Results WBC 8.69 10^3/uL (3.29-11.43) 12/05/22 17:32 RBC 4.56 10^6/uL (3.85-5.65) 12/05/22 17:32 Hgb 13.50 g/dL (11.27-16.99) 12/05/22 17:32 Hct 42.6 % (36-47) 12/05/22 17:32 MCV 93.4 fl (85-98) 12/05/22 17:32 MCH 29.6 pg (27-33) 12/05/22 17:32 MCHC 31.7 g/dL (30-55) 12/05/22 17:32 RDW 13.3 % (12.1-15.1) 12/05/22 17:32 Plt Count 267 10^3/cmm (157-399) 12/05/22 17:32 MPV 9.8 fL (7.4-10.4) 12/05/22 17:32 Neut % (Auto) 64.5 % 12/05/22 17:32 Lymph % (Auto) 26.4 % 12/05/22 17:32 [place] % (Auto) 7.4 % 12/05/22 17:32 Eos % (Auto) 0.7 % 12/05/22 17:32 Baso % (Auto) 0.8 % 12/05/22 17:32 Neut # (Auto) 5.61 10^3/uL (1.8-7.7) 12/05/22 17: Lymph # (Auto) 2.3 10^3/uL (0.8-4.8) 12/05/22 17:32 [place] # (Auto) 0.6 10^3/uL (0.2-0.9) 12/05/22 17: Eos # (Auto) 0.1 10^3/uL (0.0-0.8) 12/05/22 17: Baso # (Auto) 0.1 10^3/uL (0.0-0.1) 12/05/22 17: Nucleated RBC % (auto) 0 % 12/05/22 17: Nucleated RBCs # 0.0 /100WBC 12/05/22 17:32 Sodium 129 mmol/L (136-145) L 12/05/22 17:32 Potassium 3.7 mmol/L (3.5-5.1) 12/05/22 17:32 Chloride 91 mmol/L (98-107) L 12/05/22 17:32 Carbon Dioxide 29 mmol/L (22-29) 12/05/22 17:32 Anion Gap 12.7 (5-19) 12/05/22 17:32 BUN 6 mg/dL (6-20) 12/05/22 17:32 Creatinine 0.4 mg/dL (0.5-0.9) L 12/05/22 17:32 GFR Calculation 165.7 mL/min (90-130) H 12/05/22 17:32 Glucose 82 mg/dL (65-115) 12/05/22 17:32 Calculated Osmolality 265 mOsm/kg (285-295) L 12/05/22 17:32 Lactic Acid 1.3 mmol/L (0.5-2.2) 12/05/22 17:32 Calcium 9.2 mg/dL (8.5-10.5) 12/05/22 17:32 Magnesium 1.2 mg/dL (1.7-2.3) L 12/05/22 17:32 Total Bilirubin 0.3 mg/dL (0.15-1.2) 12/05/22 17:32 AST 29 U/L (0-32) 12/05/22 17:32 ALT 21 U/L (0-33) 12/05/22 17:32 Alkaline Phosphatase 51 U/L (35-105) 12/05/22 17:32 Creatine Kinase 148 U/L (26-192) 12/05/22 17:32 Total Protein 6.9 g/dL (6.6-8.7) 12/05/22 17:32 Albumin 4.3 g/dL (3.5-5.2) 12/05/22 17:32 Globulin 2.6 g/dL (1.3-4.6) 12/05/22 17:32 Urine Color Colorless (Yellow) 12/05/22 18:30 Urine Appearance Clear (CLEAR) 12/05/22 18:30 Urine pH 8 (5-7) H 12/05/22 18:30 Ur Specific [place] 1.005 (1.005-1.030) 12/05/22 18:30 Urine Protein Neg (Negative) 12/05/22 18:30 Urine Glucose (UA) Norm (Normal) 12/05/22 18:30 Urine Ketones 1+ (Negative) H 12/05/22 18:30 Urine Blood Neg (Negative) 12/05/22 18:30 Urine Nitrate Negative (Negative) 12/05/22 18:30 Urine Bilirubin Neg (Negative) 12/05/22 18:30 Prot Sulfosalicylic Acd Negative (Negative) 12/05/22 18:30 Urine Urobilinogen Norm mg/dL (Negative) 12/05/22 18:30 Ur Leukocyte Esterase Negative (Negative) 12/05/22 18:30 Discharge Plan Discharge Patient Disposition: Home Clinical Impression: Seizure disorder, Hypomagnesemia Condition: Stable Prescriptions: No Action tizanidine 4 mg capsule 4 mg PO BEDTIME PRN (Reason: Muscle Spasm) aspirin [Adult Low Dose Aspirin] 81 mg tablet,delayed release (DR/EC) 81 mg PO DAILY 90 Days Qty: 90 0RF lidocaine HCl [Xylocaine] 10 mg/mL (1 %) solution 1 ml IM ONCE Qty: 1 0RF Combivent Respimat 20-100 mcg/actuation mist 1 puff inhalation Q4H PRN (Reason: shortness of breath or wheezing) Qty: 4 5RF Spiriva with HandiHaler 18 mcg capsule, w/inhalation device 1 cap inhalation DAILY Qty: 30 5RF Rx Instructions: puncture 1 cap using device; one dose = 2 inhalations ipratropium-albuterol 0.5 mg-3 mg(2.5 mg base)/3 mL solution for nebulization 3 ml inhalation QID PRN (Reason: wheezing) Qty: 180 3RF mecobalamin (vitamin B12) 1,000 mcg tablet,disintegrating 1,000 mcg sublingual DAILY Rx Instructions: place tablet under tongue and allow to dissolve for at least30 secs before swallowing (DME) wheelchair See Rx Instructions .Route .MEDSUPPLY Qty: 1 0RF Rx Instructions: As directed quetiapine [Seroquel] 25 mg tablet 12.5 mg PO TID Qty: 45 3RF Rx Instructions: Take half tablet three times per day quetiapine [Seroquel] 25 mg tablet 25 mg PO BEDTIME Qty: 30 3RF Rx Instructions: Take one tablet at bedtime memantine [Namenda] 10 mg tablet 10 mg PO BID Qty: 60 3RF Rx Instructions: Take one tablet twice per day fluoxetine [Prozac] 20 mg capsule 20 mg PO .morning Qty: 30 3RF Rx Instructions: Take one capsule every morning buspirone 15 mg tablet 15 mg PO TID Qty: 90 3RF Rx Instructions: Take one tablet three times per day topiramate [Topamax] 100 mg tablet 100 mg PO BID 90 Days Qty: 180 1RF levocetirizine [Xyzal] 5 mg tablet 5 mg PO DAILY Qty: 60 1RF olopatadine 0.7 % drops 1 drp ophthalmic (eye) DAILY PRN (Reason: itching) Qty: 5 1RF montelukast 10 mg tablet 10 mg PO DAILY Multivitamin 50 Plus Tablet 1 tab PO DAILY magnesium oxide 500 mg capsule 500 mg PO DAILY cholecalciferol (vitamin D3) 50 mcg (2,000 unit) capsule 50 mcg PO DAILY meloxicam 15 mg tablet 15 mg PO DAILY Qty: 90 0RF Marijuana PO ondansetron HCl 4 mg tablet 4 mg PO Q8H PRN (Reason: nausea and vomiting) Qty: 30 0RF fluticasone propionate 50 mcg/actuation spray,suspension 1 spray INTRANASAL DAILY Qty: 16 2RF potassium chloride 20 mEq tablet extended release 40 meq PO DAILY 5 Days Qty: 10 0RF gabapentin 100 mg capsule 100 mg PO BID 90 Days Qty: 180 1RF atorvastatin [Lipitor] 40 mg tablet 40 mg PO DAILY Qty: 30 1RF bisacodyl 10 mg suppository 10 mg [place] DAILY PRN (Reason: constipation) Qty: 5 0RF Rx Instructions: 1 suppository per rectum every day PRN for constipation. atropine 1 % drops 4 drp sublingual Q4H PRN (Reason: secretions) Qty: 5 0RF Rx Instructions: 4 drops SL q 4 hours PRN for terminal congestion/excessive secretions. ondansetron 4 mg tablet,disintegrating 4 mg translingual Q4H PRN (Reason: nausea) Qty: 5 0RF Rx Instructions: Dissolve 1 tablet under tongue every 4 hours PRN for nausea lorazepam 2 mg/mL concentrate 2 mg sublingual Q4H PRN (Reason: Anxiety/Seizure) Qty: 30 0RF Rx Instructions: 0.25ml-1ml q4H PRN Anxiety/Seizure Start 0.25ml may increase to 0.5ml-1ml q4H morphine concentrate 100 mg/5 mL (20 mg/mL) solution 20 mg sublingual DIRECTED PRN (Reason: Pain/SOB) 7 Days Qty: 60 0RF Rx Instructions: 0.25ml q6H and 0.25ml Q1H PRN Discharge Orders: Discharge ED (Routine); Ordered 12/05/22 Ordered By: Juanjo Cortes Referrals: David Buenrostro MD [Primary Care Provider] - Patient Instructions: Hypomagnesemia (ED), Recurrent Seizures in Adults (ED), Opioid Safety, Pain Management Activity Restrictions/Additional Instructions: Return for repeated episodes of seizure, worsening mental status, worsening weakness, any other concerning symptoms. Follow-up with your doctor next week. Make sure your magnesium and potassium levels stay within range. Coding Level of Care Code ED Pure Culture Operator for Mariel Serna
[2022-12-05 17:08] VITALS: BP 133/86; PULSE 86; RESP 16; O2SAT 99; BMI 14.6
--- NOTE | 2022-12-05 17:14 | XRR_ITS ---
PROCEDURE INFORMATION: Exam: XR Chest Exam date and time: 12/05/2022 5:48 PM Age: 57 years old Clinical indication: Other: N/a; Additional info: Dyspnea/cough TECHNIQUE: Imaging protocol: Radiologic exam of the chest. Views: 1 view. COMPARISON: CT lung screening [id number] 01/02/2022 1:30 PM FINDINGS: Lungs: Calcified granuloma in the left lung base. The lungs are clear with severe emphysema. Pleural spaces: Unremarkable. No pleural effusion. No pneumothorax. Heart/Mediastinum: Unremarkable. No cardiomegaly. Bones/joints: Multiple old bilateral rib fractures. No acute fracture. Mild thoracolumbar curvature. XR/XR chest 1V portable [id number] IMPRESSION: No acute findings.
[2022-12-05] MEDS: topiramate 100 mg Tablet PO (17:30)
[2022-12-05 17:32] VITALS: BP 120/85; PULSE 85; RESP 18; O2SAT 97
[2022-12-05 17:38] LABS: Basophils # 0.1 10^3/uL (0.0-0.1); Basophils % 0.8 %; Eosinophils # 0.1 10^3/uL (0.0-0.8); Eosinophils % 0.7 %; Hematocrit 42.6 % (36-47); Lymphocytes # 2.3 10^3/uL (0.8-4.8); Lymphocytes % 26.4 %; Mean Corpuscular HGB Conc 31.7 g/dL (30-55); Mean Corpuscular Hemoglobin 29.6 pg (27-33); Mean Corpuscular Volume 93.4 fl (85-98); Mean Platelet Volume 9.8 fL (7.4-10.4); Monocytes # 0.6 10^3/uL (0.2-0.9); Monocytes % 7.4 %; Neutrophils # 5.61 10^3/uL (1.8-7.7); Neutrophils % 64.5 %; Nucleated Red Blood Cells % 0 %; Platelet Count 267 10^3/cmm (157-399); Red Blood Count 4.56 10^6/uL (3.85-5.65); Red Cell Distribution Width 13.3 % (12.1-15.1); White Blood Count 8.69 10^3/uL (3.29-11.43)
--- NOTE | 2022-12-05 17:55 | ECG_ITS ---
[facility] Test Date: 2022-12-05 Pat Name: Linda Aguero Department: Room: Gender: Female Plan Manager: : 1965 Requested By: Damion Vincent Order Number: [id number] Merrill MD: Bj Reddy M.D. Measurements Intervals Bailey Rate: 81 P: 83 DC: 144 QRS: 68 QRSD: 76 T: 64 QT: 293 QTc: 341 Interpretive Statements SINUS RHYTHM WITH OCCASIONAL ECTOPIC PREMATURE COMPLEXES INDETERMINATE AXIS LOW QRS VOLTAGE IN PRECORDIAL LEADS [QRS DEFLECTION < 1.0 mV IN CHEST LEADS] Compared to ECG 08/31/2020 14:47:11 Indeterminate axis now present Low QRS voltage now present Sinus tachycardia no longer present Electronically Signed On 12-05-2022 18:18:15 CDT by Bj Reddy M.D. [id number]
[2022-12-05 18:03] VITALS: BP 126/88; PULSE 84; RESP 18; O2SAT 99
[2022-12-05 18:06] LABS: Lactic Sepsis W/Reflex 1.3 mmol/L (0.5-2.2)
[2022-12-05 18:07] LABS: Alanine Aminotransferase 21 U/L (0-33); Albumin Level 4.3 g/dL (3.5-5.2); Alkaline Phosphatase 51 U/L (35-105); Aspartate Amino Transferase 29 U/L (0-32); Blood Urea Nitrogen 6 mg/dL (6-20); Calcium 9.2 mg/dL (8.5-10.5); Carbon Dioxide 29 mmol/L (22-29); Chloride 91 mmol/L (98-107); Creatine Phosphokinase 148 U/L (26-192); Globulin 2.6 g/dL (1.3-4.6); Glomerular Filtration Rate 165.7 mL/min (90-130); Glucose 82 mg/dL (65-115); Magnesium 1.2 mg/dL (1.7-2.3); Osmolality Calculated 265 mOsm/kg (285-295); Sodium 129 mmol/L (136-145); Total Bilirubin 0.3 mg/dL (0.15-1.2); Total Protein 6.9 g/dL (6.6-8.7)
[2022-12-05 18:09] LABS: Anion Gap 12.7 (5-19); Potassium 3.7 mmol/L (3.5-5.1)
--- NOTE | 2022-12-05 18:18 | CTR_ITS ---
PROCEDURE INFORMATION: Exam: CT Head Without Contrast Exam date and time: 12/05/2022 6:39 PM Age: 57 years old Clinical indication: Condition or disease; Convulsions or seizures; Patient HX: Witnessed seizure TECHNIQUE: Imaging protocol: Computed tomography of the head without contrast. Radiation optimization: All CT scans at this facility use at least one of these dose optimization techniques: automated exposure control; mA and/or kV adjustment per patient size (includes targeted exams where dose is matched to clinical indication); or iterative reconstruction. REPORTING DATA: Count of CT and Cardiac NM exams in prior 12 months: This patient has received [address] and 0 known cardiac nuclear medicine studies in the 12 months prior to the current study. COMPARISON: CT head wo con* [id number] 08/31/2020 5:45 PM RADIATION DOSE METRICS: Total DLP (mGy-cm): 1035.68 FINDINGS: Brain: Mild cortical volume loss. No abnormal brain attenuation. No intracranial hemorrhage. Cerebral ventricles: No ventriculomegaly. Paranasal sinuses: Visualized sinuses are unremarkable. No fluid levels. Mastoid air cells: Visualized mastoid air cells are well aerated. Bones/joints: Unremarkable. No acute fracture. Soft tissues: Unremarkable. Vasculature: No hyperdense artery. CT/CT head wo con* [id number] IMPRESSION: No acute intracranial abnormality.
[2022-12-05 18:33] LABS: Add Urine Microscopic? NO; Charge for UA Resulting for Rev
[2022-12-05 18:46] LABS: Bilirubin Urine Neg (Negative); Blood Urine Neg (Negative); Glucose Urine UA Norm (Normal); Ketones Urine 1+ (Negative); Leukocyte Esterase Urine Negative (Negative); Nitrate Urine Negative (Negative); Protein Urine Neg (Negative); Specific Gravity, Urine 1.005 (1.005-1.030); Sulfosalicylic Acid Urine Negative (Negative); Urine Appearance Clear (CLEAR); Urine Color Colorless (Yellow); Urobilinogen Urine Norm (Negative); pH Urine 8 (5-7)
[2022-12-05 19:08] VITALS: BP 132/94; RESP 16; O2SAT 96
[2022-12-05 20:17] VITALS: BP 123/88; PULSE 96; O2SAT 98
[2022-12-05 20:54] VITALS: BP 97/73; PULSE 100; RESP 16; O2SAT 99
== END 2022-12-05 20:56 | disposition home or self-care (01) ==
PROVIDERS: Family Medicine; Emergency Provider Emergency Medicine; PCP Family Medicine
DX: G40.909 Epilepsy, unspecified, not intractable, without status epilepticus (principal); E83.42 Hypomagnesemia
CPT/HCPCS: 36415; 70450; 71045; 80053; 81003; 82550; 83605; 83735; 85025; 93005; 96365; 99285; J3475

== ENCOUNTER 2023-06-01 11:47 | Outpatient (CLI) | payer MEDICAID, SELFPAY ==
--- NOTE | 2023-06-01 12:15 | USCV_ITS ---
Linda Aguero Age: 58 Gender: F : 1965 Exam Date: 06/01/2023 12:15 Ordering Phys: Shira Lowery ZIGZAG MACHINE OPERATOR Technologist: JASPER Exam Location: [facility] [place] Indication: peripheral edema, copd BP: 110 / 80 HR: 0 Rhythm: Sinus Technical Quality: Good MEASUREMENTS (Male / Female) Normal Values 2D ECHO LV Diastolic Diameter PLAX 3.7 cm 4.2 - 5.9 / 3.9 - 5.3 cm IVS Diastolic Thickness 1.1 cm 0.6 - 1.0 / 0.6 - 0.9 cm IVS Systolic Thickness 1.4 cm LVPW Diastolic Thickness 0.8 cm 0.6 - 1.0 / 0.6 - 0.9 cm LVPW Systolic Thickness 0.9 cm LVOT Diameter 1.8 cm LV Ejection Fraction 2D Teich 60.4 % LV Ejection Fraction MOD 2C 69.4 % Aorta at Sinotubular Diameter 2.5 cm IVC Diameter 0.9 cm M-MODE LA Ao Ratio MM 0.9 AV Cusp Separation MM 1.5 cm DOPPLER AV Peak Velocity 112.0 cm/s LVOT Peak Velocity 113.0 cm/s AV Area Cont Eq vti 3.0 cm squared AV Area Cont Eq pk 2.7 cm squared MV Area PHT 3.9 cm squared Mitral E to A Ratio 1.1 TV Peak Velocity 216.4 cm/s TR Peak Velocity 256.0 cm/s TR Peak Gradient 26.2 mmHg Right Atrial Pressure 3.0 mmHg Pulmonary Artery Systolic Pressu 29.2 mmHg PV Peak Velocity 96.0 cm/s FINDINGS Left Ventricle LV systolic function is normal with EF of 60 to 65%. No regional wall motion abnormalities are seen. Right Ventricle Normal in size and function Right Atrium Normal in size Left Atrium Normal in size Mitral Valve Structurally normal mitral valve. Mild mitral regurgitation Aortic Valve Structurally normal aortic valve. No significant stenosis or regurgitation. Tricuspid Valve Mild tricuspid regurgitation. Pulmonary artery systolic pressure is normal. Pulmonic Valve Not well-visualized Pericardium Possible pleural effusion vs artifact seen Aorta Normal in size IVC Appears to be normal CONCLUSIONS LV systolic function is normal with EF of 60 to 65%. Mild mitral regurgitation Mild tricuspid regurgitation Possible pleural effusion vs artifact seen Compared to prior echocardiogram from 2019, finding of possible pleural effusion (could also be only artifact) seen. Otherwise unremarkable Trace Torres MD (Electronically Signed) Final Date: 06 June 2023 12:35 S
== END 2023-06-01 11:48 | disposition home or self-care (01) ==
LOC: RAD 11:48
PROVIDERS: PCP Nurse Practitioner Family; Visit Provider Nurse Practitioner Family
DX: R60.0 Localized edema (principal); J44.9 Chronic obstructive pulmonary disease, unspecified; I08.1 Rheumatic disorders of both mitral and tricuspid valves
CPT/HCPCS: 93306

== ENCOUNTER 2023-11-03 08:24 | Emergency (ER) | payer MEDICAID, SELFPAY ==
[2023-11-03] VITALS (8 sets, daily range): BP systolic 123; BP diastolic 84; PULSE 90–114; RESP 18–22; TEMP 36.6; O2SAT 94–100
--- NOTE | 2023-11-03 08:29 | XR_ITS ---
WS: [id number] PORTABLE CHEST HISTORY: Weakness COMPARISON: 12/05/2022 Mild pulmonary hyperexpansion from chronic emphysema. No mass or nodule. The extent of hyperexpansion has increased since 12/05/2022. No pleural effusion or pneumothorax. Cardiac size: Normal. Mediastinum/Aorta: Normal mediastinum. Mild osteopenia. There are several healed rib fractures in the lateral LEFT thorax. XR/XR chest 1V portable [id number] IMPRESSION: Chronic emphysema. No pneumonia.
[2023-11-03 08:44] LABS: ABG PH Result 7.41 (7.35-7.45); Alveolar-Arterial Oxygen Gradi 6.2 mmHg (5-10); Base Excess ABG 19.4 mmol/L (-2.0-2.0); Blood Gas Allen Test Pos; Blood Gas Operator Identificat CAK; Blood Gas Sample Site Radial, left; Blood Gas Sample Type Arterial; Carboxyhemoglobin 1.1 %THgb (0.4-20.1); HCO3 ABG 47.9 mmol/L (22-26); HGB O2 Sat 90.5 % (95-100); Ionized Calcium Level - ABG 1.2 mmol/L (1.1-1.4); Methemoglobin 0.3 % (0.4-1.5); Oxygen Device NC; Oxygen Saturation ABG 91.8; PO2 ABG 62.3 mmHg (80.0-100.0); PO2 FiO2 Ratio Arterial Blood 222; Potassium Level - ABG 3.6 mmol/L (3.5-5.0); Total Hemoglobin 12.4 g/dL (12-16)
[2023-11-03 08:45] LABS: ABG PCO2 75.1 mmHg (35-45)
[2023-11-03 08:55] LABS: Basophils % 0.3 %; Hematocrit 40.4 % (36-47); Lymphocytes # 0.7 10^3/uL (0.8-4.8); Mean Corpuscular HGB Conc 31.9 g/dL (30-55); Mean Corpuscular Hemoglobin 29.6 pg (27-33); Mean Corpuscular Volume 92.7 fl (85-98); Mean Platelet Volume 9.8 fL (7.4-10.4); Monocytes # 0.7 10^3/uL (0.2-0.9); Monocytes % 8.7 %; Neutrophils # 6.42 10^3/uL (1.8-7.7); Neutrophils % 81.6 %; Nucleated Red Blood Cells % 0 %; Platelet Count 251 10^3/cmm (157-399); Red Blood Count 4.36 10^6/uL (3.85-5.65); Red Cell Distribution Width 12.1 % (12.1-15.1); White Blood Count 7.86 10^3/uL (3.29-11.43)
--- NOTE | 2023-11-03 08:55 | ED_ITS ---
HPI - Altered Mental Status 2 General: Chief Complaint: Altered Mental Status Stated Complaint: AMS Time Seen by Provider: 11/03/23 08:29 History of Present Illness: 58-year-old female with a history of SHANK TAPPER D who is currently on hospice who presents to the emergency room with agitation and confusion from home. Apparently she had been in a intermediate but had checked herself out and got home. Family has been trying to take care of her and apparently are not familiar with how to dose her medications. EMS called the hospice service who told them to give her some Ativan and to bring her to the emergency room. The Ativan apparently has helped quite a bit as she is not agitated on presentation. May be slightly confused. No focal motor deficits. No known fevers. She is normally on 7 L at home. Here she is satting 100% on 5 L. Review of Systems 2 Narrative: Constitutional symptoms: Negative except as documented in HPI. Skin symptoms: Negative except as documented in HPI. Eye symptoms: Negative except as documented in HPI. ENMT symptoms: Negative except as documented in HPI. Respiratory symptoms: Negative except as documented in HPI. Cardiovascular symptoms: Negative except as documented in HPI. Gastrointestinal symptoms: Negative except as documented in HPI. Genitourinary symptoms: Negative except as documented in HPI. Musculoskeletal symptoms: Negative except as documented in HPI. Neurologic symptoms: Negative except as documented in HPI. Psychiatric symptoms: Negative except as documented in HPI. Endocrine symptoms: Negative except as documented in HPI. PFSH ED 2 PFSH: Medical History (Updated 11/03/23 @ 10:02 by Fabi Oviedo MD) Seasonal allergies Protein-calorie malnutrition, moderate End stage COPD COPD (chronic obstructive pulmonary disease) Lower respiratory infection Personal history of traumatic brain injury Bipolar II disorder Provisional Chronic post-traumatic stress disorder Dementia associated with other underlying disease with behavioral disturbance Surgical History History of History of bilateral tubal ligation History of colonoscopy Family History Mother Cancer colon Father Cancer prostate Family/Other Cancer maternal and paternal aunts and uncles--lung Other Anesthesia complication CAD (coronary artery disease) Dementia Lung disease Psychiatric illness Denies family history of Diabetes Clotting disorder Hyperlipidemia Chronic kidney disease (CKD) Bleeding disorder Hypertension Stroke Social History Smoking and tobacco/nicotine status: former use of tobacco/nicotine Quit status (tobacco/nicotine): has quit using Year quit tobacco: 2018 - 2PPD x 35 Years Second hand smoke exposure: Yes Alcohol intake: former Substance/Drug Use: never Lives independently: Yes Household members: family Marital status: Current occupational status: disabled Pets and animals: No Do you think of yourself as: Straight/Heterosexual Current gender identity: Female Special michael needs: No Agree to transfusion: Yes Physical Exam 2 Narrative: General: Alert, patient is very cachectic Skin: Warm, dry. Head: Normocephalic, atraumatic. Neck: Supple, trachea midline. Eye: Extraocular movements are intact. Ears, nose, mouth and throat: Oral mucosa moist. Cardiovascular: Regular rate and rhythm, Normal peripheral perfusion. Respiratory: coarse, scattered wheeze, mild increased wob. tachypnea, breath sounds are equal, Symmetrical chest wall expansion. Gastrointestinal: Soft, Nontender, Non distended, Normal bowel sounds. Musculoskeletal: Normal ROM, no deformity. Neurological: Alert, No focal neurological deficit observed. Psychiatric: Cooperative Course 2 Vital Signs: Vital signs: Vital Signs Temperature 97.8 F 11/03/23 08:25 Pulse Rate 113 H 11/03/23 09:52 Respiratory Rate 22 H 11/03/23 09:46 Blood Pressure 123/84 11/03/23 08:43 Pulse Oximetry 94 11/03/23 09:46 Oxygen Delivery Me thod Nasal Cannula 11/03/23 09:46 Oxygen Flow Rate 3 11/03/23 09:46 MDM - Altered Mental Status Medical Decision Making Medical decision making: Differential diagnosis including but not limited to and based on the above HPI, review of systems and physical exam: In this patient with altered mental status: Stroke. Hypoglycemia. Metabolic encephalopathy. Infections such as pneumonia, urinary tract infection, Covid-19, Influenza. Electrolyte abnormalities such as hypernatremia. Renal failure / uremia. Hepatic encephalopathy. Hypoxemia. Hypercapnic respiratory failure. Psychosis. Drug or alcohol intoxication. Medication overdose. Orders placed to evaluate differential diagnosis based on the above differential, HPI and physical exam AB.41/75/62 with an O2 sat of 92% on 3 L nasal cannula. Compensated CO2 retention. Chest x-ray: Emphysematous changes, hyperinflation, no acute process. No infiltrate. No pneumothorax. This was reviewed and interpreted by myself the ER physician. Lab Review: Laboratory results were reviewed and interpreted by myself the emergency room physician. Lab work is unremarkable. No leukocytosis. No renal failure. Lactic acid is normal. She does have an elevated bicarb secondary to renal compensation for her chronic CO2 retention. Possible sepsis flag: This patient is not septic. I believe if flag because she was tachycardic and slightly tachypneic. Her tachycardia secondary to breathing treatments. She has no leukocytosis. Lactic acid is normal. No fevers. I reviewed the patient's medical record. Reexamination: Patient is more alert. She seems to be oriented. She seems a little bit agitated at times but I think this may just be her personality. She says she wants to go home. She is retaining CO2 but is completely compensated with a pH of 7.4. Work of breathing is normal now. She is received a couple breathing treatments and some steroids. Assessment and plan: COPD Hospice patient Anxiety Chronic hypoxemic respiratory failure Chronic hypercapnic respiratory failure -Steroids and a couple of updrafts given here. Will place her on some steroids for few days at home. She does have compensation but might could use a bit of a tune up. -Stable on 3 to 5 L nasal cannula. She is normally on 7 at home. ? Discharged home - Discussed findings and plan with patient. Answered any questions. - All laboratory values were reviewed and interpreted personally by myself, the ER physician - All imaging was reviewed and interpreted personally by myself, the ER physician. - Evaluation and treatment of this problem were appropriate in the emergency setting Lab Data 11/03/23 08:48 11/03/23 08:48 Radiology Impressions Chest X-Ray 11/03/23 08:29 IMPRESSION: Chronic emphysema. No pneumonia. Laboratory Results WBC 7.86 10^3/uL (3.29-11.43) 11/03/23 08:48 RBC 4.36 10^6/uL (3.85-5.65) 11/03/23 08:48 Hgb 12.90 g/dL (11.27-16.99) 11/03/23 08:48 Hct 40.4 % (36-47) 11/03/23 08:48 MCV 92.7 fl (85-98) 11/03/23 08:48 MCH 29.6 pg (27-33) 11/03/23 08:48 MCHC 31.9 g/dL (30-55) 11/03/23 08:48 RDW 12.1 % (12.1-15.1) 11/03/23 08:48 Plt Count 251 10^3/cmm (157-399) 11/03/23 08:48 MPV 9.8 fL (7.4-10.4) 11/03/23 08:48 Neut % (Auto) 81.6 % 11/03/23 08:48 Lymph % (Auto) 9.0 % 11/03/23 08:48 White % (Auto) 8.7 % 11/03/23 08:48 Eos % (Auto) 0.0 % 11/03/23 08:48 Baso % (Auto) 0.3 % 11/03/23 08:48 Neut # (Auto) 6.42 10^3/uL (1.8-7.7) 11/03/23 08:48 Lymph # (Auto) 0.7 10^3/uL (0.8-4.8) L 11/03/23 08:48 White # (Auto) 0.7 10^3/uL (0.2-0.9) 11/03/23 08:48 Eos # (Auto) 0.0 10^3/uL (0.0-0.8) 11/03/23 08:48 Baso # (Auto) 0.0 10^3/uL (0.0-0.1) 11/03/23 08:48 Nucleated RBC % (auto) 0 % 11/03/23 08:48 Nucleated RBCs # 0.0 /100WBC 11/03/23 08:48 Specimen Type Arterial 11/03/23 08:33 Sample Site Radial, left 11/03/23 08:33 ABG pH 7.41 (7.35-7.45) 11/03/23 08:33 ABG pCO2 75.1 mmHg (35-45) H* 11/03/23 08:33 ABG pO2 62.3 mmHg (80.0-100.0) L 11/03/23 08:33 ABG PO2/FiO2 Ratio 222 11/03/23 08:33 ABG HCO3 47.9 mmol/L (22-26) H 11/03/23 08:33 ABG O2 Saturation 91.8 11/03/23 08:33 ABG Base Excess 19.4 mmol/L (-2.0-2.0) H 11/03/23 08:33 Stephen Test Pos 11/03/23 08:33 A-a O2 Gradient 6.2 mmHg (5-10) 11/03/23 08:33 Hematocrit 38.0 % (37-47) 11/03/23 08:33 Hgb O2 Saturation 90.5 % (95-100) L 11/03/23 08:33 Carboxyhemoglobin 1.1 %THgb (0.4-20.1) 11/03/23 08:33 Methemoglobin 0.3 % (0.4-1.5) L 11/03/23 08:33 Total Hemoglobin 12.4 g/dL (12-16) 11/03/23 08:33 Sodium 134.0 mmol/L (131-143) 11/03/23 08:33 Potassium 3.6 mmol/L (3.5-5.0) 11/03/23 08:33 Glucose 97.0 mg/dL (70-115) 11/03/23 08:33 Ionized Calcium 1.2 mmol/L (1.1-1.4) 11/03/23 08:33 O2 Delivery Device Nc 11/03/23 08:33 O2 Liters/Min 2.0 % 11/03/23 08:33 FiO2 28.0 % 11/03/23 08:33 Road Production General Manager ID Cak 11/03/23 08:33 Sodium 133 mmol/L (136-145) L 11/03/23 08:48 Potassium 3.7 mmol/L (3.5-5.1) 11/03/23 08:48 Chloride 81 mmol/L (98-107) L 11/03/23 08:48 Carbon Dioxide 40 mmol/L (22-29) H 11/03/23 08:48 Anion Gap 15.7 (5-19) 11/03/23 08:48 BUN 9 mg/dL (6-20) 11/03/23 08:48 Creatinine 0.2 mg/dL (0.5-0.9) L 11/03/23 08:48 GFR Calculation 367.4 mL/min (90-130) H 11/03/23 08:48 Glucose 102 mg/dL (65-115) 11/03/23 08:48 Calculated Osmolality 275 mOsm/kg (285-295) L 11/03/23 08:48 Lactic Acid 0.7 mmol/L (0.5-2.2) 11/03/23 08:48 Calcium 9.6 mg/dL (8.5-10.5) 11/03/23 08:48 Total Bilirubin 0.2 mg/dL (0.15-1.2) 11/03/23 08:48 AST 30 U/L (0-32) 11/03/23 08:48 ALT 22 U/L (0-33) 11/03/23 08:48 Alkaline Phosphatase 81 U/L (35-105) 11/03/23 08:48 Total Protein 7.0 g/dL (6.6-8.7) 11/03/23 08:48 Albumin 4.1 g/dL (3.5-5.2) 11/03/23 08:48 Globulin 2.9 g/dL (1.3-4.6) 11/03/23 08:48 Urine Color Yellow (Yellow) 11/03/23 08:58 Urine Appearance Clear (CLEAR) 11/03/23 08:58 Urine pH 7 (5-7) 11/03/23 08:58 Ur Specific [place] 1.015 (1.005-1.030) 11/03/23 08:58 Urine Protein Neg (Negative) 11/03/23 08:58 Urine Glucose (UA) Norm (Normal) 11/03/23 08:58 Urine Ketones Negative (Negative) 11/03/23 08:58 Urine Blood Neg (Negative) 11/03/23 08:58 Urine Nitrate Negative (Negative) 11/03/23 08:58 Urine Bilirubin Neg (Negative) 11/03/23 08:58 Urine Urobilinogen Norm mg/dL (Negative) 11/03/23 08:58 Ur Leukocyte Esterase Negative (Negative) 11/03/23 08:58 Urine RBC None /hpf (0-2) 11/03/23 08:58 Urine WBC None /hpf (0-5) 11/03/23 08:58 Ur Squamous Epith Cells Rare /hpf (0-5) 11/03/23 08:58 Amorphous Sediment Not Reportable 11/03/23 08:58 Urine Bacteria Trace /hpf (NONE) 11/03/23 08:58 All radiology interpretation(s) finalized by discharge Discharge Plan Discharge Patient Disposition: Home Clinical Impression: End stage COPD, Dementia associated with other underlying disease with behavioral disturbance, Hospice care patient, Chronic hypoxemic respiratory failure, Chronic hypercapnic respiratory failure Condition: Stable Prescriptions: New dexamethasone 6 mg tablet 6 mg PO DAILY 5 Days Qty: 5 0RF No Action tizanidine 4 mg capsule 4 mg PO BEDTIME PRN (Reason: Muscle Spasm) aspirin [Adult Low Dose Aspirin] 81 mg tablet,delayed release (DR/EC) 81 mg PO DAILY 90 Days Qty: 90 0RF lidocaine HCl [Xylocaine] 10 mg/mL (1 %) solution 1 ml IM ONCE Qty: 1 0RF Combivent Respimat 20-100 mcg/actuation mist 1 puff inhalation Q4H PRN (Reason: shortness of breath or wheezing) Qty: 4 5RF Spiriva with HandiHaler 18 mcg capsule, w/inhalation device 1 cap inhalation DAILY Qty: 30 5RF Rx Instructions: puncture 1 cap using device; one dose = 2 inhalations ipratropium-albuterol 0.5 mg-3 mg(2.5 mg base)/3 mL solution for nebulization 3 ml inhalation QID PRN (Reason: wheezing) Qty: 180 3RF mecobalamin (vitamin B12) 1,000 mcg tablet,disintegrating 1,000 mcg sublingual DAILY Rx Instructions: place tablet under tongue and allow to dissolve for at least30 secs before swallowing (DME) wheelchair See Rx Instructions .Route .MEDSUPPLY Qty: 1 0RF Rx Instructions: As directed quetiapine [Seroquel] 25 mg tablet 12.5 mg PO TID Qty: 45 3RF Rx Instructions: Take half tablet three times per day quetiapine [Seroquel] 25 mg tablet 25 mg PO BEDTIME Qty: 30 3RF Rx Instructions: Take one tablet at bedtime memantine [Namenda] 10 mg tablet 10 mg PO BID Qty: 60 3RF Rx Instructions: Take one tablet twice per day fluoxetine [Prozac] 20 mg capsule 20 mg PO .morning Qty: 30 3RF Rx Instructions: Take one capsule every morning buspirone 15 mg tablet 15 mg PO TID Qty: 90 3RF Rx Instructions: Take one tablet three times per day topiramate [Topamax] 100 mg tablet 100 mg PO BID 90 Days Qty: 180 1RF levocetirizine [Xyzal] 5 mg tablet 5 mg PO DAILY Qty: 60 1RF olopatadine 0.7 % drops 1 drp ophthalmic (eye) DAILY PRN (Reason: itching) Qty: 5 1RF montelukast 10 mg tablet 10 mg PO DAILY Multivitamin 50 Plus Tablet 1 tab PO DAILY magnesium oxide 500 mg capsule 500 mg PO DAILY cholecalciferol (vitamin D3) 50 mcg (2,000 unit) capsule 50 mcg PO DAILY meloxicam 15 mg tablet 15 mg PO DAILY Qty: 90 0RF Marijuana PO ondansetron HCl 4 mg tablet 4 mg PO Q8H PRN (Reason: nausea and vomiting) Qty: 30 0RF fluticasone propionate 50 mcg/actuation spray,suspension 1 spray INTRANASAL DAILY Qty: 16 2RF potassium chloride 20 mEq tablet extended release 40 meq PO DAILY 5 Days Qty: 10 0RF gabapentin 100 mg capsule 100 mg PO BID 90 Days Qty: 180 1RF atorvastatin [Lipitor] 40 mg tablet 40 mg PO DAILY Qty: 30 1RF bisacodyl 10 mg suppository 10 mg OK DAILY PRN (Reason: constipation) Qty: 5 0RF Rx Instructions: 1 suppository per rectum every day PRN for constipation. atropine 1 % drops 4 drp sublingual Q4H PRN (Reason: secretions) Qty: 5 0RF Rx Instructions: 4 drops SL q 4 hours PRN for terminal congestion/excessive secretions. ondansetron 4 mg tablet,disintegrating 4 mg translingual Q4H PRN (Reason: nausea) Qty: 5 0RF Rx Instructions: Dissolve 1 tablet under tongue every 4 hours PRN for nausea lorazepam 2 mg/mL concentrate 2 mg sublingual Q4H PRN (Reason: Anxiety/Seizure) Qty: 30 0RF Rx Instructions: 0.25ml-1ml q4H PRN Anxiety/Seizure Start 0.25ml may increase to 0.5ml-1ml q4H morphine concentrate 100 mg/5 mL (20 mg/mL) solution 20 mg sublingual DIRECTED PRN (Reason: Pain/SOB) 7 Days Qty: 60 0RF Rx Instructions: 0.25ml q6H and 0.25ml Q1H PRN Discharge Orders: Discharge ED (Routine); Ordered 11/03/23 Ordered By: Fabi Oviedo Referrals: Shira Lowery, LICENSED SOCIAL WORKER [Primary Care Provider] - Discharge Diet: Usual diet Discharge Activity: Increase activity as tolerated Patient Instructions: COPD (Chronic Obstructive Pulmonary Disease) (ED) Activity Restrictions/Additional Instructions: Thank you for choosing [facility] for your healthcare needs today. Please realize this is an emergency room and that we are providing you with a medical screening exam and this may not be complete and all inclusive of all the testing and or work up that you may need to determine your ailment or severity of your illness. You have been screened and evaluated and felt safe for discharge. Health conditions do change or evolve sometimes and as such it is important that you follow up with your Primary Doctor to be re checked, 3-5 days is a general good time frame for follow up. You are always welcome to return to the ED for re assessment if your symptoms are worsening or you have new concerns Coding Level of Care Code ED Automated Cutting Machine Operator for Mariel Serna
[2023-11-03 09:11] LABS: Alanine Aminotransferase 22 U/L (0-33); Albumin Level 4.1 g/dL (3.5-5.2); Alkaline Phosphatase 81 U/L (35-105); Anion Gap 15.7 (5-19); Aspartate Amino Transferase 30 U/L (0-32); Blood Urea Nitrogen 9 mg/dL (6-20); Calcium 9.6 mg/dL (8.5-10.5); Carbon Dioxide 40 mmol/L (22-29); Chloride 81 mmol/L (98-107); Globulin 2.9 g/dL (1.3-4.6); Glomerular Filtration Rate 367.4 mL/min (90-130); Glucose 102 mg/dL (65-115); Osmolality Calculated 275 mOsm/kg (285-295); Potassium 3.7 mmol/L (3.5-5.1); Sodium 133 mmol/L (136-145); Total Bilirubin 0.2 mg/dL (0.15-1.2)
[2023-11-03 09:13] LABS: Lactic Sepsis W/Reflex 0.7 mmol/L (0.5-2.2)
[2023-11-03 09:25] LABS: Bacteria Urine TRACE /hpf; Bilirubin Urine Neg (Negative); Blood Urine Neg (Negative); Glucose Urine UA Norm (Normal); Ketones Urine Negative (Negative); Leukocyte Esterase Urine Negative (Negative); Nitrate Urine Negative (Negative); Protein Urine Neg (Negative); Specific Gravity, Urine 1.015 (1.005-1.030); Squamous Epithelial Cell Urine RARE /hpf (0-5); Urine Appearance Clear (CLEAR); Urine Color Yellow (Yellow); Urobilinogen Urine Norm (Negative); pH Urine 7 (5-7)
[2023-11-03] MEDS: methylPREDNISolone sod succ 125 mg/2 mL INJ IVP (09:44)
[2023-11-03] MEDS: albuterol 2.5 mg/3 mL Neb INHALATION (09:46)
[2023-11-03] MEDS: ipratropium-albuterol 3 mL Neb INHALATION (09:46)
--- NOTE | 2023-11-03 12:10 | PC.SOCIAL ---
SNF Spoke with Penny at [facility] who states that patient needs a level two to go to SNF. She states that she doesn't know how to complete; and was told that the hospital usually does them. Explained that since patient is not being admitted; we will not have all of the appropriate/needed information to complete a level two; however it is completed online and we can assist in helping her. Spoke with Maya at [facility]. She states that she does not have a female bed available. Referral faxed to [facility] and [facility]. Spoke with Zuleyka. She reports that she knows patient personally and has been trying to get patient to come to their facility. She states that she will reach out to patient's son and to Penny at [facility]. Spoke with Fe at [facility], they do not have any female beds available.
== END 2023-11-03 19:31 | disposition home or self-care (01) ==
PROVIDERS: Emergency Provider Emergency Medicine; PCP Nurse Practitioner Family
DX: J44.9 Chronic obstructive pulmonary disease, unspecified (principal); F03.918 Unspecified dementia, unspecified severity, with other behavioral disturbance; J96.12 Chronic respiratory failure with hypercapnia; J96.11 Chronic respiratory failure with hypoxia; Z79.82 Long term (current) use of aspirin; Z87.891 Personal history of nicotine dependence
CPT/HCPCS: 36415; 36600; 71045; 80051; 80053; 81001; 82330; 82805; 83605; 85025; 94640; 96374; 99284; J2919; J7613

== ENCOUNTER 2023-12-07 10:01 | Inpatient (IN) | payer MEDICAID, SELFPAY ==
[2023-12-07] VITALS (26 sets, daily range): BP systolic 80–142; BP diastolic 60–99; PULSE 91–111; RESP 15–20; TEMP 35.6–37.3; O2SAT 94–100; BMI 17.1
--- NOTE | 2023-12-07 10:13 | XR_ITS ---
WS: [id number] Exam: XR hip RT 2-3V wo/w pel* [id number] Date/Time of Exam: 12/07/2023 10:15 AM Reason For Exam: trauma There is an intertrochanteric fracture of the RIGHT hip with marked coxa vera deformity. No other fra ctures. Mild to moderate DJD of the joint compartment. Unremarkable soft tissues. XR/XR hip RT 2-3V wo/w pel* [id number] IMPRESSION: 1. Comminuted intertrochanteric fracture of the RIGHT hip with marked coxa vera deformity.
--- NOTE | 2023-12-07 10:31 | ED_ITS ---
HPI - Extremity Problem 2 General: Chief complaint: Extremity Injury, Lower Stated complaint: fall, right hip pain Time Seen by Provider: 12/07/23 10:13 History of Present Illness: 58-year-old female who presents to the e mergency room with right hip pain. She had a fall just prior to arrival while she was standing up trying to pull her pants on. She lost her balance and fell onto her right side backwards. She denies striking her head she denies any other injury no loss of consciousness she had drank some coffee about 1/2-hour prior to the fall she had not eaten any solids at all today. She has a history of end-stage COPD and is on 3 L/min continuously. She is not on any anticoagulants Associated symptoms: Deny chest pain, fever(s) or rash Related Data Home Medications Medication Instructions Recorded Confirmed magnesium oxide 500 mg capsule 500 mg PO DAILY 02/10/22 12/07/23 montelukast 10 mg tablet 10 mg PO DAILY respiratory 02/10/22 12/07/23 mecobalamin (vitamin B12) 1,000 1,000 mcg sublingual DAILY 04/16/22 12/07/23 mcg disintegrating tablet,sublingual fluoxetine 20 mg capsule (Prozac) 20 mg PO QAM 12/07/23 12/07/23 memantine 10 mg tablet 10 mg PO BID 12/07/23 12/07/23 omeprazole 20 mg capsule,delayed 20 mg PO BID 12/07/23 12/07/23 release prednisone 20 mg tablet 20 mg PO DAILY 12/07/23 12/07/23 Previous Rx's Medication Instructions Recorded aspirin 81 mg tablet,delayed 81 mg PO DAILY 90 days #90 tabs 04/01/21 release (Adult Low Dose Aspirin) ipratropium 0.5 mg-albuterol 3 mg 3 ml inhalation QID PRN wheezing 04/30/22 (2.5 mg base)/3 mL nebulization #180 mL soln tiotropium bromide 18 mcg capsule 1 cap inhalation DAILY #30 04/30/22 with inhalation device (Spiriva inhalations with HandiHaler) fluticasone propionate 50 1 spray intranasal DAILY #16 grams 05/21/22 mcg/actuation nasal spray,suspension meloxicam 15 mg tablet 15 mg PO DAILY #90 tabs 06/09/22 gabapentin 100 mg capsule 100 mg PO BID 90 days #180 caps 06/26/22 atorvastatin 40 mg tablet (Lipitor) 40 mg PO DAILY #30 tabs 07/28/22 wheelchair #1 ea 07/28/22 levocetirizine 5 mg tablet (Xyzal) 5 mg PO DAILY #60 tabs 08/08/22 topiramate 100 mg tablet (Topamax) 100 mg PO BID 90 days #180 tabs 08/08/22 bisacodyl 10 mg rectal suppository 10 mg NV DAILY PRN constipation #5 08/13/22 ea lorazepam 2 mg/mL oral concentrate 2 mg sublingual Q4H PRN 08/13/22 Anxiety/Seizure #30 mL ondansetron 4 mg disintegrating 4 mg translingual Q4H PRN nausea 08/13/22 tablet #5 tabs buspirone 15 mg tablet 15 mg PO TID #90 tabs 09/11/22 quetiapine 25 mg tablet (Seroquel) 12.5 mg (1/2 x 25 mg) PO TID 09/11/22 anxiety/agitation #45 tabs morphine concentrate 100 mg/5 mL 20 mg sublingual DIRECTED PRN 10/13/22 (20 mg/mL) oral solution Pain/SOB 7 days #60 mL Allergies Allergy/AdvReac Type Severity Reaction Status Date / Time azithromycin Allergy Unknown Unknown Verified 12/07/23 10:13 doxycycline Allergy Unknown Verified 12/07/23 10:13 Penicillins Allergy ALGY-Rash Verified 12/07/23 10:13 Tetracyclines Allergy unknown Verified 12/07/23 10:13 Review of Systems 2 Const: Denies: fever(s) or chills Card: Denies: chest pain Resp: Denies: dyspnea GI: Denies: abdominal pain : Denies: dysuria, urinary frequency or urinary urgency Musc: Reports: joint pain (Right hip); Denies: neck pain or back pain Skin/Breast: Denies: rash PFSH ED 2 PFSH: Medical History Seasonal allergies Protein-calorie malnutrition, moderate End stage COPD COPD (chronic obstructive pulmonary disease) Lower respiratory infection Personal history of traumatic brain injury Bipolar II disorder Provisional Chronic post-traumatic stress disorder Dementia associated with other underlying disease with behavioral disturbance Surgical History History of History of bilateral tubal ligation History of colonoscopy Family History Mother Cancer colon Father Cancer prostate Family/Other Cancer maternal and paternal aunts and uncles--lung Other Anesthesia complication CAD (coronary artery disease) Dementia Lung disease Psychiatric illness Denies family history of Diabetes Clotting disorder Hyperlipidemia Chronic kidney disease (CKD) Bleeding disorder Hypertension Stroke Social History Smoking and tobacco/nicotine status: current some day tobacco/nicotine user cigarettes Second hand smoke exposure: Yes Alcohol intake: former Substance/Drug Use: never Lives independently: Yes Household members: family Marital status: Current occupational status: disabled Pets and animals: No Do you think of yourself as: Straight/Heterosexual Current gender identity: Female Special michael needs: No Agree to transfusion: Yes Physical Exam 2 Const: GENERAL APPEARANCE: cooperative ORIENTATION/CONSCIOUSNESS: Yes awake, Yes oriented to person, Yes oriented to place and Yes oriented to time HENMT: COMMON NORMALS: normocephalic, atraumatic and hearing grossly normal bilaterally HEAD & SCALP: normocephalic and atraumatic Resp: COMMON NORMALS: normal respiratory effort, No retractions, No use of accessory muscles and clear to auscultation bilaterally AUSCULTATION: clear to auscultation bilaterally Cardio: COMMON NORMALS: regular rate, regular rhythm and No murmurs present (Cardio) RATE: regular rate RHYTHM: regular rhythm GI: COMMON NORMALS: Soft to palpation and No hepatosplenomegaly present A USCULTATION: Yes normoactive bowel sounds PALPATION: Yes Soft to palpation, No Tenderness to palpation present (GI), No Guarding due to palpation present (GI) and Yes No hepatosplenomegaly present Extremity: COMMON NORMALS: normal to inspection, capillary refill normal, no clubbing, cyanosis or edema, no calf tenderness and no pedal edema Neuro: SENSORIUM/ORIENTATION: Yes oriented to person, Yes oriented to place and Yes oriented to time Skin: COMMON NORMALS: no rashes or lesions noted GENERAL SKIN EXAM: no rashes or lesions noted Course 2 Vital Signs: Vital signs: Vital Signs Temperature 98.3 F 12/07/23 10:06 Pulse Rate 98 12/07/23 11:41 Respiratory Rate 18 12/07/23 11:41 Blood Pressure 135/96 12/07/23 11:41 Pulse Oximetry 97 12/07/23 11:41 Oxygen Delivery Me thod Nasal Cannula 12/07/23 11:41 Oxygen Flow Rate 2 12/07/23 11:41 MDM - Extremity (Nontraumatic) Medical Decision Making Right intertrochanteric comminuted hip fracture. Will admit to Dr. Sierra consult Dr. Lo on-call for orthopedics Lab Data 12/07/23 10:40 12/07/23 10:40 Radiology Impressions Hip/Pelvis X-Ray 12/07/23 10:13 IMPRESSION: 1. Comminuted intertrochanteric fracture of the RIGHT hip with marked coxa vera deformity. Chest X-Ray 12/07/23 10:32 IMPRESSION: 1. Pulmonary hyperinflation which might represent obstructive lung disease. No acute process noted. Stable. Laboratory Results WBC 9.65 10^3/uL (3.29-11.43) 12/07/23 10:40 RBC 3.59 10^6/uL (3.85-5.65) L 12/07/23 10:40 Hgb 10.60 g/dL (11.27-16.99) L 12/07/23 10:40 Hct 34.0 % (36-47) L 12/07/23 10:40 MCV 94.7 fl (85-98) 12/07/23 10:40 MCH 29.5 pg (27-33) 12/07/23 10:40 MCHC 31.2 g/dL (30-55) 12/07/23 10:40 RDW 12.8 % (12.1-15.1) 12/07/23 10:40 Plt Count 236 10^3/cmm (157-399) 12/07/23 10:40 MPV 10.5 fL (7.4-10.4) H 12/07/23 10:40 Neut % (Auto) 71.6 % 12/07/23 10:40 Lymph % (Auto) 17.1 % 12/07/23 10:40 [place] % (Auto) 9.6 % 12/07/23 10:40 Eos % (Auto) 0.9 % 12/07/23 10:40 Baso % (Auto) 0.5 % 12/07/23 10:40 Neut # (Auto) 6.90 10^3/uL (1.8-7.7) 12/07/23 10:40 Lymph # (Auto) 1.7 10^3/uL (0.8-4.8) 12/07/23 10:40 [place] # (Auto) 0.9 10^3/uL (0.2-0.9) 12/07/23 10:40 Eos # (Auto) 0.1 10^3/uL (0.0-0.8) 12/07/23 10:40 Baso # (Auto) 0.1 10^3/uL (0.0-0.1) 12/07/23 10:40 Nucleated RBC % (auto) 0 % 12/07/23 10:40 Nucleated RBCs # 0.0 /100WBC 12/07/23 10:40 Sodium 135 mmol/L (136-145) L 12/07/23 10:40 Potassium 3.2 mmol/L (3.5-5.1) L 12/07/23 10:40 Chloride 91 mmol/L (98-107) L 12/07/23 10:40 Carbon Dioxide 33 mmol/L (22-29) H 12/07/23 10:40 Anion Gap 14.2 (5-19) 12/07/23 10:40 BUN 5 mg/dL (6-20) L 12/07/23 10:40 Creatinine 0.3 mg/dL (0.5-0.9) L 12/07/23 10:40 GFR Calculation 230.1 mL/min (90-130) H 12/07/23 10:40 Glucose 111 mg/dL (65-115) 12/07/23 10:40 Calculated Osmolality 278 mOsm/kg (285-295) L 12/07/23 10:40 Calcium 9.0 mg/dL (8.5-10.5) 12/07/23 10:40 Total Bilirubin 0.2 mg/dL (0.15-1.2) 12/07/23 10:40 AST 14 U/L (0-32) 12/07/23 10:40 ALT 15 U/L (0-33) 12/07/23 10:40 Alkaline Phosphatase 66 U/L (35-105) 12/07/23 10:40 Total Protein 6.4 g/dL (6.6-8.7) L 12/07/23 10:40 Albumin 4.0 g/dL (3.5-5.2) 12/07/23 10:40 Globulin 2.4 g/dL (1.3-4.6) 12/07/23 10:40 Urine Color Yellow (Yellow) 12/07/23 11:40 Urine Appearance Clear (CLEAR) 12/07/23 11:40 Urine pH 6.5 (5-7) 12/07/23 11:40 Ur Specific [place] 1.014 (1.005-1.030) 12/07/23 11:40 Urine Protein 1+ (Negative) A 12/07/23 11:40 Urine Glucose (UA) Negative (Normal) 12/07/23 11:40 Urine Ketones Trace (Negative) 12/07/23 11:40 Urine Blood Negative (Negative) 12/07/23 11:40 Urine Nitrate Negative (Negative) 12/07/23 11:40 Urine Bilirubin Negative (Negative) 12/07/23 11:40 Urine Urobilinogen 1.0 mg/dL (Negative) 12/07/23 11:40 Ur Leukocyte Esterase Negative (Negative) 12/07/23 11:40 Urine RBC 0-2 /hpf (0-2) 12/07/23 11:40 Urine WBC 0-5 /hpf (0-5) 12/07/23 11:40 Ur Squamous Epith Cells 0-5 /hpf (0-5) 12/07/23 11:40 Amorphous Sediment Not Reportable 12/07/23 11:40 Urine Bacteria None seen /hpf (NONE) 12/07/23 11:40 Hyaline Casts 4.52 /lpf 12/07/23 11:40 All radiology interpretation(s) finalized by discharge Discharge Plan Discharge Patient Disposition: Admitted As Inpatient Admit Provider: Yuniel Sierra Clinical Impression: Closed intertrochanteric fracture of hip, End stage COPD, Protein-calorie malnutrition, moderate Condition: Stable Coding Level of Care Code ED Fashion Consultant Selling for Mariel Serna
--- NOTE | 2023-12-07 10:32 | XR_ITS ---
WS: [id number] Exam: XR chest 1V portable [id number] Date/Time of Exam: 12/07/2023 10:41 AM Reason For Exam: dyspnea/cough Comparison 11/03/2023. The lungs are hyperinflated and clear. Normal cardiomediastinal silhouette. Old healed bilateral rib fractures. No pleural effusions. Levoscoliosis of the lower T-spine. XR/XR chest 1V portable [id number] IMPRESSION: 1. Pulmonary hyperinflation which might represent obstructive lung disease. No acute process noted. Stable.
--- NOTE | 2023-12-07 10:46 | ECG_ITS ---
[facility] Test Date: 2023-12-07 Pat Name: Linda Aguero Department: Room: Gender: Female All Source Analyst: : 1965 Requested By: Damion Vincent Order Number: [id number] Merrill MD: Bj Reddy M.D. Measurements Intervals [place] Rate: 87 P: 77 CO: 127 QRS: 60 QRSD: 83 T: 62 QT: 345 QTc: 415 Interpretive Statements SINUS RHYTHM WITH SINUS ARRHYTHMIA INDETERMINATE AXIS SEPTAL MYOCARDIAL INFARCTION , OF INDETERMINATE AGE [40+ ms Q WAVE IN V1/V2] Compared to ECG 12/05/2022 17:55:31 Myocardial infarct finding now present Electronically Signed On 12-07-2023 22:46:16 CDT by Bj Reddy M.D. [id number]
[2023-12-07 10:51] LABS: Basophils # 0.1 10^3/uL (0.0-0.1); Basophils % 0.5 %; Eosinophils # 0.1 10^3/uL (0.0-0.8); Eosinophils % 0.9 %; Lymphocytes # 1.7 10^3/uL (0.8-4.8); Lymphocytes % 17.1 %; Mean Corpuscular HGB Conc 31.2 g/dL (30-55); Mean Corpuscular Hemoglobin 29.5 pg (27-33); Mean Corpuscular Volume 94.7 fl (85-98); Mean Platelet Volume 10.5 fL (7.4-10.4); Monocytes # 0.9 10^3/uL (0.2-0.9); Monocytes % 9.6 %; Neutrophils % 71.6 %; Nucleated Red Blood Cells % 0 %; Platelet Count 236 10^3/cmm (157-399); Red Blood Count 3.59 10^6/uL (3.85-5.65); Red Cell Distribution Width 12.8 % (12.1-15.1); White Blood Count 9.65 10^3/uL (3.29-11.43)
[2023-12-07 11:04] LABS: Alanine Aminotransferase 15 U/L (0-33); Alkaline Phosphatase 66 U/L (35-105); Anion Gap 14.2 (5-19); Aspartate Amino Transferase 14 U/L (0-32); Blood Urea Nitrogen 5 mg/dL (6-20); Carbon Dioxide 33 mmol/L (22-29); Chloride 91 mmol/L (98-107); Creatinine Clr Calc Pharmacy 122.9501; Globulin 2.4 g/dL (1.3-4.6); Glomerular Filtration Rate 230.1 mL/min (90-130); Glucose 111 mg/dL (65-115); Osmolality Calculated 278 mOsm/kg (285-295); Potassium 3.2 mmol/L (3.5-5.1); Sodium 135 mmol/L (136-145); Total Bilirubin 0.2 mg/dL (0.15-1.2); Total Protein 6.4 g/dL (6.6-8.7)
--- NOTE | 2023-12-07 11:10 | P.HP_ITS ---
Providers/Chief Complaint 2 Admitting Physician: Yuniel Sierra MD, hospitalist Primary Care Provider: Shira Lowery NP Chief Complaint: fall, right hip pain History of Present Illness Linda Aguero is a 58 year old female with history of severe COPD and continued tobacco use, chronically on 4 L of oxygen with underlying hypercarbia, depression, frailty, etc. who presents to the hospital after a fall. She states she was doing fine this morning, but upon trying to get her pants on around 7-8 she fell and injured her right hip. She denies any other injuries. She has significant right hip pain. She denies any loss of consciousness. She denies any recent illness. No chest pain. No history of bleeding disorder, severe reaction to anesthesia in the past. Worried how the severity of her lung disease will affect her anesthesia. Mother is present with her and gives ancillary history. Review of Systems 2 General: Reports: 10 or more systems reviewed and unremarkable except in HPI and below Card: Denies: chest pain Resp: Reports: dyspnea (Chronic) Medications/Allergies Home Medications Medication Instructions Recorded Confirmed Last Taken Type tizanidine 4 mg capsule 4 mg PO BEDTIME PRN Muscle Spasm 06/17/19 09/11/22 Unknown History aspirin 81 mg tablet,delayed 81 mg PO DAILY 90 days #90 tabs 04/01/21 09/11/22 Unknown Rx release (Adult Low Dose Aspirin) cholecalciferol (vitamin D3) 50 50 mcg PO DAILY supplement 02/10/22 09/11/22 Unknown History mcg (2,000 unit) capsule magnesium oxide 500 mg capsule 500 mg PO DAILY 02/10/22 09/11/22 Unknown History montelukast 10 mg tablet 10 mg PO DAILY respiratory 02/10/22 09/11/22 Unknown History [id number] 1 tab PO DAILY electrolyte 02/10/22 09/11/22 Unknown History tablet (Multivitamin 50 Plus balance- nutritional products tablet) mecobalamin (vitamin B12) 1,000 1,000 mcg sublingual DAILY 04/16/22 09/11/22 Unknown History mcg disintegrating tablet,sublingual ipratropium 0.5 mg-albuterol 3 mg 3 ml inhalation QID PRN wheezing 04/30/22 09/11/22 Unknown Rx (2.5 mg base)/3 mL nebulization #180 mL soln ipratropium 20 mcg-albuterol 100 1 puff inhalation Q4H PRN 04/30/22 09/11/22 Unknown Rx mcg/actuation mist for inhalation shortness of breath or wheezing #4 (Combivent Respimat) grams tiotropium bromide 18 mcg capsule 1 cap inhalation DAILY #30 04/30/22 09/11/22 Unknown Rx with inhalation device (Spiriva inhalations with HandiHaler) fluticasone propionate 50 1 spray intranasal DAILY #16 grams 05/21/22 09/11/22 Unknown Rx mcg/actuation nasal spray,suspension meloxicam 15 mg tablet 15 mg PO DAILY #90 tabs 06/09/22 09/11/22 Unknown Rx potassium chloride 20 mEq 40 meq (2 x 20 mEq) PO DAILY 5 06/13/22 09/11/22 Unknown Rx tablet,extended release days #10 tabs gabapentin 100 mg capsule 100 mg PO BID 90 days #180 caps 06/26/22 09/11/22 Unknown Rx Marijuana PO 07/03/22 09/11/22 Unknown History ondansetron HCl 4 mg tablet 4 mg PO Q8H PRN nausea and 07/10/22 09/11/22 Unknown Rx vomiting #30 tabs atorvastatin 40 mg tablet (Lipitor) 40 mg PO DAILY #30 tabs 07/28/22 09/11/22 Unknown Rx wheelchair #1 ea 07/28/22 09/11/22 Unknown Rx levocetirizine 5 mg tablet (Xyzal) 5 mg PO DAILY #60 tabs 08/08/22 09/11/22 Unknown Rx olopatadine 0.7 % eye drops 1 drp ophthalmic (eye) DAILY PRN 08/08/22 09/11/22 Unknown Rx itching #5 mL topiramate 100 mg tablet (Topamax) 100 mg PO BID 90 days #180 tabs 08/08/22 09/11/22 Unknown Rx atropine 1 % eye drops 4 drp sublingual Q4H PRN 08/13/22 09/11/22 Unknown Rx secretions #5 mL bisacodyl 10 mg rectal suppository 10 mg PA DAILY PRN constipation #5 08/13/22 09/11/22 Unknown Rx ea lorazepam 2 mg/mL oral concentrate 2 mg sublingual Q4H PRN 08/13/22 09/11/22 Unknown Rx Anxiety/Seizure #30 mL ondansetron 4 mg disintegrating 4 mg translingual Q4H PRN nausea 08/13/22 09/11/22 Unknown Rx tablet #5 tabs buspirone 15 mg tablet 15 mg PO TID #90 tabs 09/11/22 09/11/22 Unknown Rx fluoxetine 20 mg capsule (Prozac) 20 mg PO .morning #30 caps 09/11/22 09/11/22 Unknown Rx memantine 10 mg tablet (Namenda) 10 mg PO BID #60 tabs 09/11/22 09/11/22 Unknown Rx quetiapine 25 mg tablet (Seroquel) 12.5 mg (1/2 x 25 mg) PO TID 09/11/22 09/11/22 Unknown Rx anxiety/agitation #45 tabs quetiapine 25 mg tablet (Seroquel) 25 mg PO BEDTIME #30 tabs 09/11/22 09/11/22 Unknown Rx morphine concentrate 100 mg/5 mL 20 mg sublingual DIRECTED PRN 10/13/22 Unknown Rx (20 mg/mL) oral solution Pain/SOB 7 days #60 mL Allergies Allergy/AdvReac Type Severity Reaction Status Date / Time azithromycin Allergy Unknown Unknown Verified 12/07/23 10:13 doxycycline Allergy Unknown Verified 12/07/23 10:13 Penicillins Allergy ALGY-Rash Verified 12/07/23 10:13 Tetracyclines Allergy unknown Verified 12/07/23 10:13 PFSH Acute 2 PFSH: Medical History Seasonal allergies Protein-calorie malnutrition, moderate End stage COPD COPD (chronic obstructive pulmonary disease) Lower respiratory infection Personal history of traumatic brain injury Bipolar II disorder Provisional Chronic post-traumatic stress disorder Dementia associated with other underlying disease with behavioral disturbance Surgical History History of History of bilateral tubal ligation History of colonoscopy Family History Mother Cancer colon Father Cancer prostate Family/Other Cancer maternal and paternal aunts and uncles--lung Other Anesthesia complication CAD (coronary artery disease) Dementia Lung disease Psychiatric illness Denies family history of Diabetes Clotting disorder Hyperlipidemia Chronic kidney disease (CKD) Bleeding disorder Hypertension Stroke Social History (Updated 12/07/23 @ 11:13 by Yuniel Sierra MD) Smoking and tobacco/nicotine status: current some day tobacco/nicotine user cigarettes Second hand smoke exposure: Yes Alcohol intake: former Substance/Drug Use: never Lives independently: Yes Household members: family Marital status: Current occupational status: disabled Pets and animals: No Do you think of yourself as: Straight/Heterosexual Current gender identity: Female Special michael needs: No Agree to transfusion: Yes Vitals/I&O/Wt Last Vital Signs Temp 98.3 F 12/07/23 10:06 Pulse 102 H 12/07/23 10:06 BP 142/99 12/07/23 10:06 Pulse Ox 98 12/07/23 10:06 O2 Del Method Nasal Cannula 12/07/23 10:06 O2 Flow Rate 3 12/07/23 10:06 Weight last 48 hrs Weight 37.195 kg Physical Exam 2 Narrative: General exam is a frail-appearing white female, reporting right hip pain HEENT: Atraumatic normocephalic. Oropharynx is clear. Oxygen noted. Neck is supple no lymphadenopathy thyromegaly Cardiovascular slightly tachycardic, regular, no murmur Lungs slightly coarse bilaterally. No wheezing. Diminished breath sounds bilaterally. Abdomen is soft nontender positive bowel sounds. No obvious organomegaly exam was deferred Extremities no cyanosis clubbing or edema. Right lower extremity externally rotated and shortened. Pulses are intact. Skin no rash Neuro no focal deficits. Data 12/07/23 10:40 12/07/23 10:40 Other Labs: LFTs are normal Albumin, calcium is normal Urinalysis is pending Chest x-ray which I reviewed demonstrates no infiltrate, COPD Hip and pelvis x-ray demonstrates right intertrochanteric fracture, which I reviewed Last echo in May 2023 demonstrates preserved EF, pulmonary artery pressure of 29 EKG done today which I reviewed demonstrates sinus rhythm, normal axis, Q-wave septally A&P Assessment and plan (1) Closed hip fracture: Patient presents with a closed hip fracture, on the right side following a mechanical fall. There is no evidence at this time of any other injuries. Surgically she will be high risk secondary to COPD and oxygen requirement. She is also frail. I discussed this with her and her mother. Bedrest for now Pain control (2) Severe chronic obstructive pulmonary disease: DuoNeb every 4 hours Budesonide twice daily Encourage smoking cessation Nicotine patch to facilitate this. (3) Chronic respiratory failure with hypoxia and hypercapnia: May require BiPAP in the recovery. Secondary to her chronic respiratory failure with hypercarbia. Will hold off on any DVT prophylaxis and SCDs in case spinal anesthesia is recommended Plan Other medical problems as outlined in her past medical history Full code currently SCDs for DVT prophylaxis, pharmacologic to start following surgery secondary to reasons above Mother would make decisions if patient could not Attestations 2 Medical Necessity Statement*: Will need greater than 2 midnight stay for evaluation and treatment of hip fracture requiring surgery Diagnoses Closed hip fracture S72.009A Severe chronic obstructive pulmonary disease J44.9 Chronic respiratory failure with hypoxia and hypercapnia J96.11; J96.12 Time Spent (min) 54
[2023-12-07 11:55] LABS: Charge for UA Resulting for Rev
[2023-12-07 12:00] LABS: Bilirubin Urine Negative (Negative); Blood Urine Negative (Negative); Glucose Urine UA Negative (Normal); Ketones Urine Trace (Negative); Leukocyte Esterase Urine Negative (Negative); Nitrate Urine Negative (Negative); Protein Urine 1+ (Negative); Specific Gravity, Urine 1.014 (1.005-1.030); Urine Appearance Clear (CLEAR); Urine Color Yellow (Yellow); pH Urine 6.5 (5-7)
[2023-12-07 12:03] LABS: Bacteria Urine None Seen /hpf; Hyaline Casts Urine 4.52 /lpf; RBC Urine 0-2 /hpf (0-2); Squamous Epithelial Cell Urine 0-5 /hpf (0-5); WBC Urine 0-5 /hpf (0-5)
--- NOTE | 2023-12-07 12:21 | PC.PHAR ---
pt states took herself off of several medications-made notes on those meds. pt has taken morphine and lorazepam today
[2023-12-07] MEDS: morphine 4 mg/mL SDV 1 mL IVP (12:55)
[2023-12-07] MEDS: ipratropium-albuterol 3 mL Neb INHALATION ×3 (13:06→23:41)
[2023-12-07] MEDS: sodium chloride 0.9% 1,000 ML 100 ML IV ×2 (13:09→17:52)
[2023-12-07] MEDS: ondansetron 2 mg/ML SDV 2 mL 4 MG IVP ×2 (13:12→19:33)
[2023-12-07] MEDS: HYDROmorphone 1 mg/mL INJ 1 mL 0.5 MG IVP (14:27)
[2023-12-07] MEDS: hydrocortisone 100 mg/2 mL SDV 50 MG IVP (14:27)
--- NOTE | 2023-12-07 14:57 | P.ANESASSM_ITS ---
Pre-Anesthetic Assessment Height/Weight: Height 1.47 m Weight 37.195 kg Temp Pulse Resp BP Pulse Ox O2 Del Method O2 Flow Rate 99.1 F 101 H 17 125/89 97 Nasal Cannula 2 12/07/23 13:05 12/07/23 13:06 12/07/23 14:27 12/07/23 13:05 12/07/23 13:06 12/07/23 13:06 12/07/23 13:06 Operation Date: 12/07/23 16:05 Proposed Procedures p Trochanteric Femoral Nail(Right) - Jaron Lo, DO Familial anesthetic complications: None Was Beta [place] taken within 24 hours: N/A Was Clonidine taken within 24 hours: N/A Last intake: Intake Last Liquid Date 12/06/23 Last Liquid Time 20:00 Last Solid Date 12/06/23 Last Solid Time 20:00 Social Tobacco and No alcohol Exam alert, oriented x 3, clear to auscultation bilaterally and regular rate & rhythm Airway Mallampati: Class II Dentition: false and other (poor dentiltion, mulitple missing) Pulmonary Chronic Obstructive Pulmonary Disease (4 L NC) and Sleep Apnea CV/HEM Congestive Heart Failure Metabolic frailty Neuropsych Seizure Anesthetic Plan ASA status: 4 Anesthesia: Regional (specify below) Risk of > 500 ml blood loss (7ml/kg in children): No Medications/Allergies Home Medications Medication Instructions Recorded Confirmed Last Taken Type aspirin 81 mg tablet,delayed 81 mg PO DAILY 90 days #90 tabs 04/01/21 12/07/23 Unknown Rx release (Adult Low Dose Aspirin) magnesium oxide 500 mg capsule 500 mg PO DAILY 02/10/22 12/07/23 Unknown History montelukast 10 mg tablet 10 mg PO DAILY respiratory 02/10/22 12/07/23 12/06/23 History mecobalamin (vitamin B12) 1,000 1,000 mcg sublingual DAILY 04/16/22 12/07/23 12/06/23 History mcg disintegrating tablet,sublingual ipratropium 0.5 mg-albuterol 3 mg 3 ml inhalation QID PRN wheezing 04/30/22 12/07/23 Unknown Rx (2.5 mg base)/3 mL nebulization #180 mL soln tiotropium bromide 18 mcg capsule 1 cap inhalation DAILY #30 04/30/22 12/07/23 12/06/23 Rx with inhalation device (Spiriva inhalations with HandiHaler) fluticasone propionate 50 1 spray intranasal DAILY #16 grams 05/21/22 12/07/23 12/06/23 Rx mcg/actuation nasal spray,suspension meloxicam 15 mg tablet 15 mg PO DAILY #90 tabs 06/09/22 12/07/23 12/06/23 Rx gabapentin 100 mg capsule 100 mg PO BID 90 days #180 caps 06/26/22 12/07/23 Unknown Rx atorvastatin 40 mg tablet (Lipitor) 40 mg PO DAILY #30 tabs 07/28/22 12/07/23 Unknown Rx wheelchair #1 ea 07/28/22 12/07/23 Unknown Rx levocetirizine 5 mg tablet (Xyzal) 5 mg PO DAILY #60 tabs 08/08/22 12/07/23 Unknown Rx topiramate 100 mg tablet (Topamax) 100 mg PO BID 90 days #180 tabs 08/08/22 12/07/23 12/06/23 Rx bisacodyl 10 mg rectal suppository 10 mg VA DAILY PRN constipation #5 08/13/22 12/07/23 Unknown Rx ea lorazepam 2 mg/mL oral concentrate 2 mg sublingual Q4H PRN 08/13/22 12/07/23 12/07/23 Rx Anxiety/Seizure #30 mL ondansetron 4 mg disintegrating 4 mg translingual Q4H PRN nausea 08/13/22 12/07/23 Unknown Rx tablet #5 tabs buspirone 15 mg tablet 15 mg PO TID #90 tabs 09/11/22 12/07/23 Unknown Rx quetiapine 25 mg tablet (Seroquel) 12.5 mg (1/2 x 25 mg) PO TID 09/11/22 12/07/23 Unknown Rx anxiety/agitation #45 tabs morphine concentrate 100 mg/5 mL 20 mg sublingual DIRECTED PRN 10/13/22 12/07/23 12/07/23 Rx (20 mg/mL) oral solution Pain/SOB 7 days #60 mL fluoxetine 20 mg capsule (Prozac) 20 mg PO QAM 12/07/23 12/07/23 Unknown History memantine 10 mg tablet 10 mg PO BID 12/07/23 12/07/23 Unknown History omeprazole 20 mg capsule,delayed 20 mg PO BID 12/07/23 12/07/23 12/06/23 History release prednisone 20 mg tablet 20 mg PO DAILY 12/07/23 12/07/23 12/06/23 History Allergies Allergy/AdvReac Type Severity Reaction Status Date / Time azithromycin Allergy Unknown Unknown Verified 12/07/23 10:13 doxycycline Allergy Unknown Verified 12/07/23 10:13 Penicillins Allergy ALGY-Rash Verified 12/07/23 10:13 Tetracyclines Allergy unknown Verified 12/07/23 10:13 Current Medications Generic Name Dose Route Start Last Admin Trade Name Freq PRN Reason Stop Dose Admin Sodium Chloride 1,000 mls @ 100 mls/hr 12/07/23 12:35 12/07/23 13:09 Sodium Chloride 0.9% IV 100 mls/hr .Q10H NELIDA Administration Ondansetron HCl 4 mg 12/07/23 12:35 12/07/23 13:12 Ondansetron 2 Mg/Ml Sdv 2 Ml IVP 4 mg Q6H PRN Administration NAUSEA AND VOMITING PFSH Anesthesia Medical History Seasonal allergies Protein-calorie malnutrition, moderate End stage COPD COPD (chronic obstructive pulmonary disease) Lower respiratory infection Personal history of traumatic brain injury Bipolar II disorder Provisional Chronic post-traumatic stress disorder Dementia associated with other underlying disease with behavioral disturbance Surgical History History of History of bilateral tubal ligation History of colonoscopy Family History Mother Cancer colon Father Cancer prostate Family/Other Cancer maternal and paternal aunts and uncles--lung Other Anesthesia complication CAD (coronary artery disease) Dementia Lung disease Psychiatric illness Denies family history of Diabetes Clotting disorder Hyperlipidemia Chronic kidney disease (CKD) Bleeding disorder Hypertension Stroke Social History Smoking and tobacco/nicotine status: current some day tobacco/nicotine user cigarettes Second hand smoke exposure: Yes Alcohol intake: former Substance/Drug Use: never Lives independently: Yes Household members: family Marital status: Current occupational status: disabled Pets and animals: No Do you think of yourself as: Straight/Heterosexual Current gender identity: Female Special michael needs: No Agree to transfusion: Yes Data Anesthesia 12/07/23 10:40 12/07/23 10:40 Short CBC 12/07/23 Range/Units 10:40 WBC 9.65 (3.29-11.43) 10^3/uL Hgb 10.60 L (11.27-16.99) g/dL Hct 34.0 L (36-47) % MCV 94.7 (85-98) fl Plt Count 236 (157-399) 10^3/cmm Neut % (Auto) 71.6 % Neut # (Auto) 6.90 (1.8-7.7) 10^3/uL BMP 12/07/23 10:40 Sodium 135 L Potassium 3.2 L Chloride 91 L Carbon Dioxide 33 H BUN 5 L Creatinine 0.3 L Glucose 111 Calcium 9.0 Liver Function 12/07/23 Range/Units 10:40 Total Bilirubin 0.2 (0.15-1.2) mg/dL AST 14 (0-32) U/L ALT 15 (0-33) U/L Alkaline Phosphatase 66 (35-105) U/L Albumin 4.0 (3.5-5.2) g/dL Urine 12/07/23 Range/Units 11:40 Urine Color Yellow (Yellow) Urine Appearance Clear (CLEAR) Urine pH 6.5 (5-7) Ur Specific [place] 1.014 (1.005-1.030) Urine Protein 1+ A (Negative) Urine Glucose (UA) Negative (Normal) Urine Ketones Trace (Negative) Urine Nitrate Negative (Negative) Urine Bilirubin Negative (Negative) Ur Leukocyte Esterase Negative (Negative) Urine RBC 0-2 (0-2) /hpf Urine WBC 0-5 (0-5) /hpf Blood Bank 12/07/23 10:40 Blood Type A Positive Rho(D) Type Rh positive Antibody Screen Negative Cardiac Studies: 2 Echocardiogram 06/01/23 Echocardiogram Ultrasound 02/08/20
--- NOTE | 2023-12-07 15:27 | P.CONIM_ITS ---
Providers/Reason For Consult 2 Consulting Physician/Specialty*: Hospitalist Reason for Consult*: Right hip fracture Attending Physician: Yuniel Sierra MD Primary Care Provider: Shira Lowery NP History of Present Illness History of Present Illness Linda Aguero is a 58 year old female trying to get her pants on around 7-8 she fell and injured her right hip. She denies any other injuries. She has significant right hip pain. Review of Systems 2 Const: Denies: fever(s) or chills Card: Denies: chest pain Resp: Denies: dyspnea GI: Denies: abdominal pain : Denies: dysuria, urinary frequency or urinary urgency Musc: Reports: joint pain (Right hip); Denies: neck pain or back pain Skin/Breast: Denies: rash Medications/Allergies Home Medications Medication Instructions Recorded Confirmed Last Taken Type aspirin 81 mg tablet,delayed 81 mg PO DAILY 90 days #90 tabs 04/01/21 12/07/23 Unknown Rx release (Adult Low Dose Aspirin) magnesium oxide 500 mg capsule 500 mg PO DAILY 02/10/22 12/07/23 Unknown History montelukast 10 mg tablet 10 mg PO DAILY respiratory 02/10/22 12/07/23 12/06/23 History mecobalamin (vitamin B12) 1,000 1,000 mcg sublingual DAILY 04/16/22 12/07/23 12/06/23 History mcg disintegrating tablet,sublingual ipratropium 0.5 mg-albuterol 3 mg 3 ml inhalation QID PRN wheezing 04/30/22 12/07/23 Unknown Rx (2.5 mg base)/3 mL nebulization #180 mL soln tiotropium bromide 18 mcg capsule 1 cap inhalation DAILY #30 04/30/22 12/07/23 12/06/23 Rx with inhalation device (Spiriva inhalations with HandiHaler) fluticasone propionate 50 1 spray intranasal DAILY #16 grams 05/21/22 12/07/23 12/06/23 Rx mcg/actuation nasal spray,suspension meloxicam 15 mg tablet 15 mg PO DAILY #90 tabs 06/09/22 12/07/23 12/06/23 Rx gabapentin 100 mg capsule 100 mg PO BID 90 days #180 caps 06/26/22 12/07/23 Unknown Rx atorvastatin 40 mg tablet (Lipitor) 40 mg PO DAILY #30 tabs 07/28/22 12/07/23 Unknown Rx wheelchair #1 ea 07/28/22 12/07/23 Unknown Rx levocetirizine 5 mg tablet (Xyzal) 5 mg PO DAILY #60 tabs 08/08/22 12/07/23 Unknown Rx topiramate 100 mg tablet (Topamax) 100 mg PO BID 90 days #180 tabs 08/08/22 12/07/23 12/06/23 Rx bisacodyl 10 mg rectal suppository 10 mg VA DAILY PRN constipation #5 08/13/22 12/07/23 Unknown Rx ea lorazepam 2 mg/mL oral concentrate 2 mg sublingual Q4H PRN 08/13/22 12/07/23 12/07/23 Rx Anxiety/Seizure #30 mL ondansetron 4 mg disintegrating 4 mg translingual Q4H PRN nausea 08/13/22 12/07/23 Unknown Rx tablet #5 tabs buspirone 15 mg tablet 15 mg PO TID #90 tabs 09/11/22 12/07/23 Unknown Rx quetiapine 25 mg tablet (Seroquel) 12.5 mg (1/2 x 25 mg) PO TID 09/11/22 12/07/23 Unknown Rx anxiety/agitation #45 tabs morphine concentrate 100 mg/5 mL 20 mg sublingual DIRECTED PRN 10/13/22 12/07/23 12/07/23 Rx (20 mg/mL) oral solution Pain/SOB 7 days #60 mL fluoxetine 20 mg capsule (Prozac) 20 mg PO QAM 12/07/23 12/07/23 Unknown History memantine 10 mg tablet 10 mg PO BID 12/07/23 12/07/23 Unknown History omeprazole 20 mg capsule,delayed 20 mg PO BID 12/07/23 12/07/23 12/06/23 History release prednisone 20 mg tablet 20 mg PO DAILY 12/07/23 12/07/23 12/06/23 History Allergies Allergy/AdvReac Type Severity Reaction Status Date / Time azithromycin Allergy Unknown Unknown Verified 12/07/23 10:13 cinnamon Allergy ADR-Itching Verified 12/07/23 15:02 doxycycline Allergy Unknown Verified 12/07/23 10:13 Penicillins Allergy ALGY-Rash Verified 12/07/23 10:13 Tetracyclines Allergy unknown Verified 12/07/23 10:13 tree nut Allergy ALGY-Anaphy Verified 12/07/23 15:00 laxis Current Medications Generic Name Dose Route Start Last Admin Trade Name Freq PRN Reason Stop Dose Admin Sodium Chloride 1,000 mls @ 100 mls/hr 12/07/23 12:35 12/07/23 13:09 Sodium Chloride 0.9% IV 100 mls/hr .Q10H NELIDA Administration Ondansetron HCl 4 mg 12/07/23 12:35 12/07/23 13:12 Ondansetron 2 Mg/Ml Sdv 2 Ml IVP 4 mg Q6H PRN Administration NAUSEA AND VOMITING PFSH Acute 2 PFSH: Medical History Seasonal allergies Protein-calorie malnutrition, moderate End stage COPD COPD (chronic obstructive pulmonary disease) Lower respiratory infection Personal history of traumatic brain injury Bipolar II disorder Provisional Chronic post-traumatic stress disorder Dementia associated with other underlying disease with behavioral disturbance Surgical History History of History of bilateral tubal ligation History of colonoscopy Family History Mother Cancer colon Father Cancer prostate Family/Other Cancer maternal and paternal aunts and uncles--lung Other Anesthesia complication CAD (coronary artery disease) Dementia Lung disease Psychiatric illness Denies family history of Diabetes Clotting disorder Hyperlipidemia Chronic kidney disease (CKD) Bleeding disorder Hypertension Stroke Social History Smoking and tobacco/nicotine status: current some day tobacco/nicotine user cigarettes Second hand smoke exposure: Yes Alcohol intake: former Substance/Drug Use: never Lives independently: Yes Household members: family Marital status: Current occupational status: disabled Pets and animals: No Do you think of yourself as: Straight/Heterosexual Current gender identity: Female Special michael needs: No Agree to transfusion: Yes Vitals/I&O/Wt Last Vital Signs Temp 99.1 F 12/07/23 13:05 Pulse 101 H 12/07/23 13:06 Resp 17 12/07/23 14:27 BP 125/89 12/07/23 13:05 Pulse Ox 97 12/07/23 13:06 O2 Del Method Nasal Cannula 12/07/23 13:06 O2 Flow Rate 2 12/07/23 13:06 Weight last 48 hrs Weight 82 lb Weight 82 lb Physical Exam 2 Narrative: Right leg is externally rotated and shortened Urinary Catheter Management: Amador: Cath Placed During This Visit: yes Urinary Catheter Date of Insertion: 12/07/23 Urinary Catheter Time of Insertion: 09:00 Data 12/07/23 10:40 12/07/23 10:40 A&P Assessment and plan (1) Closed hip fracture: Patient sustained a right intertrochanteric hip fracture. Will do a hip nail today Qualifiers: Encounter type: initial encounter Laterality: right Qualified Code(s): S72.001A - Fracture of unspecified part of neck of right femur, initial encounter for closed fracture Coding Level of Care Code Acute Code for Chg Fwd Diagnoses Closed fracture of right hip, initial encounter S72.001A Encounter type: initial encounter Laterality: right
[2023-12-07] MEDS: clindamycin 600 MG/50 ML PREMIX 100 MG IV ×2 (15:30→22:05)
--- NOTE | 2023-12-07 16:33 | XR_ITS ---
WS: [id number] Exam: XR hip RT 2-3V wo/w pel* [id number] Date/Time of Exam: 12/07/2023 4:33 PM Reason For Exam: OR PICS Intraoperative AP and lateral C-arm images of the RIGHT hip are submitted for evaluation. Comparison 12/07/2023. Previously noted intertrochanteric fracture of the RIGHT hip is now stabilized with a long intramedul meagan yee and femoral neck impaction screw. Alignment is satisfactory for healing. Postoperative dean es in the adjacent soft tissues. XR/XR hip RT 2-3V wo/w pel* [id number] IMPRESSION: 1. Satisfactory ORIF involving an intertrochanteric fracture of the RIGHT hip.
--- NOTE | 2023-12-07 17:00 | PM.OP ---
Operative Report Date of procedure: December 07, 2023 Pre-op diagnosis: Right intertrochanteric hip fracture Post-op diagnosis: same Procedure done: Right hip nail Surgeon: Jaron Lo DO Estimated blood loss (mL): 10 Procedure: Right hip nail Patient brought to the procedure after going anesthesia was placed in the supine position on the fracture table. All areas impingement well-padded. Fracture was reduced pulling traction. This was locked in position patient was then prepped and draped normal sterile fashion. Skin incision was made proximal to greater trochanter. Starting pin was inserted and then the opening reamer was inserted. Followed by the nail. After the nail was inserted and the probe position and then a wire was placed up into the femoral head in the center center position. The canal was reamed. Size 80 lag screw was placed. And locked in position. Next the distal locking screw was placed this was done using the guide 35 mm screw was placed. AP lateral fluoroscopy ensured the fracture and hardware in good position. Wounds were irrigated closed with Vicryl and edd. Sterile dressings were applied and patient is transferred to the PACU in stable condition
--- NOTE | 2023-12-07 17:25 | ANE.PACU2 ---
Inpatient post-anesthesia follow up: Airway intact: Yes Vital signs: Temperature 98.9 F Pulse Rate 115 Respiratory Rate 17 Blood Pressure 115/81 Pulse Oximetry 97 Oxygen Delivery Me thod Nasal Cannula Oxygen Flow Rate 3 Fraction of Inspir ed Oxygen Hydration adequate: Yes Nausea and vomiting: No Pain level: 1 Mental status: Baseline
[2023-12-07] MEDS: pantoprazole DR 40 mg Tablet PO (17:49)
[2023-12-07] MEDS: topiramate 100 mg Tablet PO (17:49)
[2023-12-07] MEDS: memantine 5 mg tablet 10 MG PO (17:49)
[2023-12-07] MEDS: gabapentin 100 mg Capsule PO (17:49)
[2023-12-07] MEDS: HYDROmorphone 1 mg/mL INJ 1 mL IVP ×2 (19:30→22:43)
[2023-12-07] MEDS: budesonide 0.5 mg/2 mL Neb INHALATION (20:18)
[2023-12-07] MEDS: nicotine 7 mg Patch 1 PATCH TRANSDERMA (20:53)
[2023-12-07] MEDS: diclofenac 1% Topical Gel 100 gm 1 APPLIC TOPICAL (20:55)
[2023-12-07 21:48] LABS: Glucose Point of Care 141 mg/dL (70-110)
[2023-12-07] MEDS: hydrocortisone 100 mg/2 mL SDV 25 MG IVP (22:05)
[2023-12-07] MEDS: oxyCODONE-APAP 5-325 mg Tablet 1 TAB PO (22:05)
--- NOTE | 2023-12-07 23:58 | PC.NURSE ---
Unable to set up suction for seizure precautions. Lids and cannister in supply room do not fit each other.
[2023-12-08] VITALS (16 sets, daily range): BP systolic 111–128; BP diastolic 73–85; PULSE 100–120; RESP 14–22; TEMP 36.4–37.2; O2SAT 94–99
--- NOTE | 2023-12-08 00:03 | PC.NURSE ---
Patient continually c/o pain and asking for pain medication. Per RT, patient fell asleep during breathing treatment. When I round on patient, patient appears to be resting comfortably with eyes closed. Patient does not c/o pain to surgical incision, but c/o pain to back, which patient states is chronic. Patient has crackles via auscultation to lungs and has NS running at 100 ml/hr. Patient states she has a history of CHF. Dr. Torres notified and ordered to discontinue the IV fluids. Received order from Dr. Torres for PRN Oxy and PRN Voltaren gel for patient's pain. Patient states she uses the Voltaren gel at home. Patient also has PRN Dilaudid. Patient has also been repositioned. Patient also asking for nicotine patch and PRN Ativan that she takes at home. Received orders from Dr. Torres for these.
[2023-12-08] MEDS: LORazepam 2 mg/mL oral liquid (mL) PO ×4 (00:58→20:02)
[2023-12-08] MEDS: HYDROmorphone 1 mg/mL INJ 1 mL IVP ×2 (02:18→06:21)
[2023-12-08] MEDS: oxyCODONE-APAP 5-325 mg Tablet 1 TAB PO ×3 (04:01→18:19)
[2023-12-08] MEDS: ipratropium-albuterol 3 mL Neb INHALATION ×4 (04:15→20:37)
--- NOTE | 2023-12-08 04:53 | PC.NURSE ---
Patient had oral liquid Ativan, oral liquid morphine, OTC Zyrtec, and 2 lighters in her purse. Charge nurse, Alexandria came in room with myself to ask the patient to remove these items from her purse. Liquid morphine and Ativan was measured at bedside, tamper tape was placed at bedside, and they were locked in Pyxis.
[2023-12-08 04:58] LABS: Basophils % 0.2 %; Hematocrit 29.7 % (36-47); Lymphocytes # 0.9 10^3/uL (0.8-4.8); Lymphocytes % 7.6 %; Mean Corpuscular HGB Conc 30.6 g/dL (30-55); Mean Platelet Volume 11.2 fL (7.4-10.4); Monocytes % 8.2 %; Neutrophils % 83.3 %; Nucleated Red Blood Cells % 0 %; Platelet Count 173 10^3/cmm (157-399); Red Blood Count 3.03 10^6/uL (3.85-5.65); Red Cell Distribution Width 13.1 % (12.1-15.1); White Blood Count 11.64 10^3/uL (3.29-11.43)
[2023-12-08 05:26] LABS: Alanine Aminotransferase 18 U/L (0-33); Albumin Level 3.7 g/dL (3.5-5.2); Alkaline Phosphatase 61 U/L (35-105); Anion Gap 11.9 (5-19); Aspartate Amino Transferase 19 U/L (0-32); Blood Urea Nitrogen 5 mg/dL (6-20); Calcium 8.9 mg/dL (8.5-10.5); Carbon Dioxide 33 mmol/L (22-29); Chloride 99 mmol/L (98-107); Creatinine Clr Calc Pharmacy 140.9423; Globulin 2.2 g/dL (1.3-4.6); Glomerular Filtration Rate 230.1 mL/min (90-130); Glucose 173 mg/dL (65-115); Magnesium 1.2 mg/dL (1.7-2.3); Osmolality Calculated 291 mOsm/kg (285-295); Potassium 3.9 mmol/L (3.5-5.1); Sodium 140 mmol/L (136-145); Total Bilirubin 0.2 mg/dL (0.15-1.2); Total Protein 5.9 g/dL (6.6-8.7)
[2023-12-08] MEDS: clindamycin 600 MG/50 ML PREMIX 100 MG IV ×2 (06:21→16:08)
[2023-12-08] MEDS: hydrocortisone 100 mg/2 mL SDV 25 MG IVP (06:21)
--- NOTE | 2023-12-08 06:29 | PC.NURSE ---
Patient states that she can't lift her left leg. Patient states she is scared to get out of bed because she knows it will hurt. Bilateral pedal pulses present and strong. Patient is able to wiggle her toes and feel me touch her toes. Patient is able to move foot in all directions.
--- NOTE | 2023-12-08 06:51 | PC.NURSE ---
Patient refused Prozac, Buspar, and Seroquel, stating that she hasn't taken them in a long time.
--- NOTE | 2023-12-08 07:31 | P.PN_ITS ---
Subjective 2 Subjective: Linda reports her pain is controlled on the current regimen. She wants to go home if possible. I discussed with her this is not always the case after hip repair, and the patient lives alone with her comorbidities. Medications: Reviewed: Yes Vitals/I&O/Wt Last Vital Signs Temp 98.9 F 12/08/23 07:08 Pulse 115 H 12/08/23 07:08 Resp 17 12/08/23 07:08 BP 115/81 12/08/23 07:08 Pulse Ox 97 12/08/23 07:08 O2 Del Method Nasal Cannula 12/08/23 07:08 O2 Flow Rate 3 12/08/23 04:15 12/07/23 12/08/23 12/08/23 22:59 06:59 14:59 Intake Total 1850 / 1850 50 / 1900 Output Total 105 / 105 800 / 905 Balance 1745 / 1745 -750 / 995 Weight last 48 hrs Weight 42.638 kg Weight 37.195 kg Weight 37.195 kg Physical Exam 2 Narrative: General exam no distress, on baseline oxygen Neck is supple no lymphadenopathy thyromegaly Cardiovascular slightly tachycardic, regular, no murmur Lungs slightly coarse bilaterally. No wheezing. Diminished breath sounds bilaterally. Abdomen is soft nontender positive bowel sounds. No obvious organomegaly Right hip dressing clean and dry Extremities no cyanosis clubbing or edema. No foot drop Urinary Catheter Management: Amador: Cath Placed During This Visit: yes, but has since been removed by the nurse Reason for Continuing Indwelling Catheter: Decision to DC Catheter Urinary Catheter Date of Insertion: 12/07/23 Urinary Catheter Time of Insertion: 09:00 Date Urinary Catheter Removed: 12/08/23 Time Urinary Catheter Discontinued: 06:28 Data 12/08/23 04:02 12/08/23 04:02 A&P Assessment and plan (1) Closed hip fracture: Patient presents with a closed hip fracture, on the right side following a mechanical fall. Postoperative day #1 status post ORIF There is no evidence at this time of any other injuries. Up with therapy today Pain control appears adequate Qualifiers: Encounter type: initial encounter Laterality: right Qualified Code(s): S72.001A - Fracture of unspecified part of neck of right femur, initial encounter for closed fracture (2) Severe chronic obstructive pulmonary disease: DuoNeb every 4 hours Budesonide twice daily Encourage smoking cessation Nicotine patch to facilitate this. (3) Chronic respiratory failure with hypoxia and hypercapnia: Currently stable Plan Postoperative acute blood loss anemia. No need of transfusion currently. CBC, BMP tomorrow Hypomagnesemia, supplemented recheck tomorrow Other medical problems as outlined in her past medical history Full code currently SCDs for DVT prophylaxis, initiate pharmacological prophylaxis today Likely needs placement in a nursing facility if she will allow it. Attestations 2 Medical Necessity Statement*: Needs continued hospitalization for close monitoring after hip repair, in this patient with multiple comorbidities including severe COPD, hypomagnesemia, acute postoperative blood loss anemia Diagnoses Closed fracture of right hip, initial encounter S72.001A Encounter type: initial encounter Laterality: right Severe chronic obstructive pulmonary disease J44.9 Chronic respiratory failure with hypoxia and hypercapnia J96.11; J96.12 Time Spent (min) 32
--- NOTE | 2023-12-08 07:57 | P.PN_ITS ---
Subjective 2 Subjective: Patient is doing well pain is controlled. Sitting in bed at this point. Vitals/I&O/Wt Last Vital Signs Temp 98.9 F 12/08/23 07:08 Pulse 115 H 12/08/23 07:08 Resp 17 12/08/23 07:08 BP 115/81 12/08/23 07:08 Pulse Ox 97 12/08/23 07:08 O2 Del Method Nasal Cannula 12/08/23 07:08 O2 Flow Rate 3 12/08/23 04:15 12/07/23 12/08/23 12/08/23 22:59 06:59 14:59 Intake Total 1850 / 1850 50 / 1900 Output Total 105 / 105 800 / 905 Balance 1745 / 1745 -750 / 995 Weight last 48 hrs Weight 94 lb Weight 82 lb Weight 82 lb Physical Exam 2 Narrative: Seen in bed comfortable pain controlled Urinary Catheter Management: Amador: Cath Placed During This Visit: yes, but has since been removed by the nurse Reason for Continuing Indwelling Catheter: Decision to DC Catheter Urinary Catheter Date of Insertion: 12/07/23 Urinary Catheter Time of Insertion: 09:00 Date Urinary Catheter Removed: 12/08/23 Time Urinary Catheter Discontinued: 06:28 Data 12/08/23 04:02 12/08/23 04:02 A&P Assessment and plan (1) Closed hip fracture: Postop day #1 right hip intramedullary nail. Up with physical therapy DVT prophylaxis with aspirin Qualifiers: Encounter type: initial encounter Laterality: right Qualified Code(s): S72.001A - Fracture of unspecified part of neck of right femur, initial encounter for closed fracture Attestations 2 Medical Necessity Statement*: Per primary service Coding Level of Care Code Acute Code for Ch Fwd Diagnoses Closed fracture of right hip, initial encounter S72.001A Encounter type: initial encounter Laterality: right
[2023-12-08] MEDS: magnesium sulfate premix 2 GM/50 ML PIGGYBACK IV (07:59)
[2023-12-08] MEDS: budesonide 0.5 mg/2 mL Neb INHALATION ×2 (08:13→20:37)
[2023-12-08] MEDS: quetiapine 25 mg Tablet 12.5 MG PO (09:52)
[2023-12-08] MEDS: predniSONE 20 mg Tablet PO (09:52)
[2023-12-08] MEDS: apixaban 5 mg Tablet 2.5 MG PO ×2 (09:52→20:00)
[2023-12-08] MEDS: gabapentin 100 mg Capsule PO ×2 (09:52→18:20)
[2023-12-08] MEDS: topiramate 100 mg Tablet PO ×2 (09:52→18:19)
[2023-12-08] MEDS: montelukast sodium 10 mg Tablet PO (09:52)
[2023-12-08] MEDS: pantoprazole DR 40 mg Tablet PO ×2 (09:53→18:20)
[2023-12-08] MEDS: cetirizine 10 mg Tablet 5 MG PO (09:53)
[2023-12-08] MEDS: BuSPIRONE 10 mg Tablet 15 MG PO (09:54)
[2023-12-08] MEDS: atorvastatin 40 mg Tablet PO (09:55)
[2023-12-08] MEDS: aspirin 81 mg EC Tablet PO (09:55)
[2023-12-08] MEDS: memantine 5 mg tablet 10 MG PO ×2 (09:57→18:20)
--- NOTE | 2023-12-08 10:34 | PC.CHAP ---
Pastoral Care Encounter/Spiritual Assessment Type of Contact [] Declined director technical visit [] Patient/Family/Request visit [] Outpatient visit [] Follow-up visit [] Physician referral [] Code/Alert [] Routine visit [] Staff referral [] Actively dying [x] Patient sleeping [] Family support [] [] Out of room [] Palliative care [] [] Receiving care in room [] Pre-surgical visit [] Trauma [] Long length of stay [] ICU visit [] Other: Relational/Emotional Strength [] Patient feels connected with others/family/visitors/staff [] Distress [] Loneliness/isolation [] Abandonment Spirituality of Patient [] Person of Yolanda [] Attends Hinduism of their Yolanda [] Believes in Prayer [] Reads Bible or Episcopalian materials [] There are Spiritual issues to be addressed Mask Designer Interventions [] Prayer [] Active listening [] Non-anxious presence [] Spiritual/emotional support [] Crisis/trauma care [] Spiritual counseling [] Bereavement support [] Provided bereavement packet [] Provided Bible/devotional materials [] Provided toy/stuffed animal, coloring book to patient or family member [] Provided Communion [] Anointing/[place] [] Salvation [] Completed spiritual assessment [] Other: Impact on Illness or Injury [] Angry [] Fearful [] Anxious [] Often cries [] Exhaustion [] Unable to work [] Unable to attend orthodoxy [] Unable to walk/stand [] Unable to read [] Unable to drive [] Unable to eat/drink [] Unable to sleep [] Unable to be with family [] Patient intubated [] Other: Summary Time spent with patient
--- NOTE | 2023-12-08 16:03 | PC.OT ---
OT EVALUATION ATTEMPTED. PATIENT SLEEPING SOUNDLY
[2023-12-08] MEDS: nicotine 7 mg Patch 1 PATCH TRANSDERMA (20:01)
[2023-12-09] VITALS (10 sets, daily range): BP systolic 107–116; BP diastolic 68–77; PULSE 83–108; RESP 16–18; TEMP 36.6–36.9; O2SAT 97–100
--- NOTE | 2023-12-09 00:05 | PC.NURSE ---
Patient not able to stay awake long enough for DEVICE TEST ENGINEER to take vital signs. Patient opened her eyes for a short period of time and fell back asleep. Patient does not appear to be in pain at this time and has not asked for anything for pain.
[2023-12-09] MEDS: oxyCODONE-APAP 5-325 mg Tablet 1 TAB PO ×3 (02:15→10:39)
[2023-12-09] MEDS: LORazepam 2 mg/mL oral liquid (mL) PO ×2 (02:21→10:38)
[2023-12-09 04:52] LABS: Basophils % 0.2 %; Eosinophils # 0.1 10^3/uL (0.0-0.8); Eosinophils % 0.6 %; Hematocrit 27.4 % (36-47); Mean Corpuscular HGB Conc 30.3 g/dL (30-55); Mean Corpuscular Hemoglobin 29.6 pg (27-33); Mean Corpuscular Volume 97.9 fl (85-98); Mean Platelet Volume 11.1 fL (7.4-10.4); Monocytes # 1.7 10^3/uL (0.2-0.9); Monocytes % 13.8 %; Neutrophils # 8.44 10^3/uL (1.8-7.7); Neutrophils % 68.9 %; Nucleated Red Blood Cells % 0 %; Platelet Count 170 10^3/cmm (157-399); Red Cell Distribution Width 13.3 % (12.1-15.1); White Blood Count 12.25 10^3/uL (3.29-11.43)
[2023-12-09 05:18] LABS: Blood Urea Nitrogen 6 mg/dL (6-20); Calcium 8.6 mg/dL (8.5-10.5); Carbon Dioxide 25 mmol/L (22-29); Chloride 101 mmol/L (98-107); Creatinine Clr Calc Pharmacy 160.5277; Glomerular Filtration Rate 230.1 mL/min (90-130); Glucose 94 mg/dL (65-115); Magnesium 1.4 mg/dL (1.7-2.3); Osmolality Calculated 283 mOsm/kg (285-295); Sodium 138 mmol/L (136-145)
[2023-12-09 05:25] LABS: Anion Gap 15.3 (5-19); Potassium 3.3 mmol/L (3.5-5.1)
[2023-12-09] MEDS: budesonide 0.5 mg/2 mL Neb INHALATION (07:49)
[2023-12-09] MEDS: ipratropium-albuterol 3 mL Neb INHALATION ×2 (07:50→11:37)
[2023-12-09] MEDS: potassium chloride oral liq 20 mEq/15 mL UDC 40 MEQ PO (07:56)
[2023-12-09] MEDS: pantoprazole DR 40 mg Tablet PO (07:57)
[2023-12-09] MEDS: magnesium sulfate premix 2 GM/50 ML PIGGYBACK IV (07:57)
[2023-12-09] MEDS: memantine 5 mg tablet 10 MG PO (07:57)
[2023-12-09] MEDS: predniSONE 20 mg Tablet PO (07:57)
[2023-12-09] MEDS: montelukast sodium 10 mg Tablet PO (07:57)
[2023-12-09] MEDS: cetirizine 10 mg Tablet 5 MG PO (07:57)
[2023-12-09] MEDS: apixaban 5 mg Tablet 2.5 MG PO (07:57)
[2023-12-09] MEDS: topiramate 100 mg Tablet PO (07:58)
[2023-12-09] MEDS: gabapentin 100 mg Capsule PO (07:58)
[2023-12-09] MEDS: BuSPIRONE 10 mg Tablet 15 MG PO (07:58)
--- NOTE | 2023-12-09 08:52 | PC.CHAP ---
Pastoral Care Encounter/Spiritual Assessment Type of Contact [] Declined industrial gas fitter visit [] Patient/Family/Request visit [] Outpatient visit [] Follow-up visit [] Physician referral [] Code/Alert [x] Routine visit [] Staff referral [] Actively dying [] Patient sleeping [] Family support [] [] Out of room [] Palliative care [] [] Receiving care in room [] Pre-surgical visit [] Trauma [] Long length of stay [] ICU visit [] Other: Relational/Emotional Strength [x] Patient feels connected with others/family/visitors/staff [] Distress [] Loneliness/isolation [] Abandonment Spirituality of Patient [x] Person of Yolanda [] Attends Latter Day of their Yolanda [x] Believes in Prayer [] Reads Bible or Restoration materials [] There are Spiritual issues to be addressed Waste Minimization Technician Interventions [x] Prayer [] Active listening [] Non-anxious presence [x] Spiritual/emotional support [] Crisis/trauma care [] Spiritual counseling [] Bereavement support [] Provided bereavement packet [] Provided Bible/devotional materials [] Provided toy/stuffed animal, coloring book to patient or family member [] Provided Communion [] Anointing/Wheeling [] Salvation [x] Completed spiritual assessment [] Other: Impact on Illness or Injury [] Angry [] Fearful [] Anxious [] Often cries [] Exhaustion [] Unable to work [] Unable to attend mormonism [] Unable to walk/stand [] Unable to read [] Unable to drive [] Unable to eat/drink [] Unable to sleep [] Unable to be with family [] Patient intubated [] Other: Summary Time spent with patient 5 min
--- NOTE | 2023-12-09 10:58 | P.DS_ITS ---
Discharge Providers Date of Admission: 12/07/23 11:53 Date of Discharge: December 09, 2023 Attending Provider at Admission: Yuniel Sierra MD Attending Provider at Discharge: Yuniel Sierra MD Primary Care Provider: Shira Lowrey NP Diagnoses at Discharge Discharge Diagnosis (1) Closed hip fracture: Status: Acute Qualifiers: Encounter type: initial encounter Laterality: right Qualified Code(s): S72.001A - Fracture of unspecified part of neck of right femur, initial encounter for closed fracture Reason for Visit Reason for Visit: fall, right hip pain Hospital Course Hospital Course Patient is a 58-year-old white female with severe COPD who presented with a mechanical fall. She sustained a hip fracture, to her right hip which required ORIF with right hip nail on December 06. She did well with her spinal anesthesia, and was followed until the in the hospital. She worked well with physical therapy, and ultimately wished to go home refusing nursing facility placement. At time of discharge she was stable, hemoglobin 8.3 with some mild acute postoperative anemia. Potassium and magnesium were supplemented. I asked that she follow-up with her primary care provider with a CBC in 3 to 5 days, work on therapy at home, and follow-up with orthopedics as they have directed. I discussed reasoning, and precautions behind taking Eliquis for DVT prophylaxis for the next 4 weeks. She was able to ask questions, and agreed with the plan. Physical Exam Narrative: General exam no distress Neck is supple Cardiovascular regular rhythm without murmur Lungs diminished breath sounds but clear Abdomen is soft Extremities no sinus clubbing edema, right hip repair site with dressings clean and dry Urinary Catheter Management: [place]: Cath Placed During This Visit: yes, but has since been removed by the nurse Reason for Continuing Indwelling Catheter: Decision to DC Catheter Urinary Catheter Date of Insertion: 12/07/23 Urinary Catheter Time of Insertion: 09:00 Date Urinary Catheter Removed: 12/08/23 Time Urinary Catheter Discontinued: 06:28 Discharge Data Studies Completed and Pending Completed Studies During Hospitalization Category Date Time Status XR chest 1V portable [id number] Stat Exams 12/07/23 10:32 Completed XR hip RT 2-3V wo/w pel* [id number] Routine Exams 12/07/23 16:33 Completed XR hip RT 2-3V wo/w pel* [id number] Stat Exams 12/07/23 10:13 Completed Radiology Impressions Chest X-Ray 12/07/23 10:32 IMPRESSION: 1. Pulmonary hyperinflation which might represent obstructive lung disease. No acute process noted. Stable. Hip/Pelvis X-Ray 12/07/23 16:33 IMPRESSION: 1. Satisfactory ORIF involving an intertrochanteric fracture of the RIGHT hip. Laboratory Results WBC 12.25 10^3/uL (3.29-11.43) H 12/09/23 04:37 RBC 2.80 10^6/uL (3.85-5.65) L 12/09/23 04:37 Hgb 8.30 g/dL (11.27-16.99) L 12/09/23 04:37 Hct 27.4 % (36-47) L 12/09/23 04:37 MCV 97.9 fl (85-98) 12/09/23 04:37 MCH 29.6 pg (27-33) 12/09/23 04:37 MCHC 30.3 g/dL (30-55) 12/09/23 04:37 RDW 13.3 % (12.1-15.1) 12/09/23 04:37 Plt Count 170 10^3/cmm (157-399) 12/09/23 04:37 MPV 11.1 fL (7.4-10.4) H 12/09/23 04:37 Neut % (Auto) 68.9 % 12/09/23 04:37 Lymph % (Auto) 16.0 % 12/09/23 04:37 [place] % (Auto) 13.8 % 12/09/23 04:37 Eos % (Auto) 0.6 % 12/09/23 04:37 Baso % (Auto) 0.2 % 12/09/23 04:37 Neut # (Auto) 8.44 10^3/uL (1.8-7.7) H 12/09/23 04:37 Lymph # (Auto) 2.0 10^3/uL (0.8-4.8) 12/09/23 04:37 [place] # (Auto) 1.7 10^3/uL (0.2-0.9) H 12/09/23 04:37 Eos # (Auto) 0.1 10^3/uL (0.0-0.8) 12/09/23 04:37 Baso # (Auto) 0.0 10^3/uL (0.0-0.1) 12/09/23 04:37 Nucleated RBC % (auto) 0 % 12/09/23 04:37 Nucleated RBCs # 0.0 /100WBC 12/09/23 04:37 Sodium 138 mmol/L (136-145) 12/09/23 04:37 Potassium 3.3 mmol/L (3.5-5.1) L 12/09/23 04:37 Chloride 101 mmol/L (98-107) 12/09/23 04:37 Carbon Dioxide 25 mmol/L (22-29) 12/09/23 04:37 Anion Gap 15.3 (5-19) 12/09/23 04:37 BUN 6 mg/dL (6-20) 12/09/23 04:37 Creatinine 0.3 mg/dL (0.5-0.9) L 12/09/23 04:37 GFR Calculation 230.1 mL/min (90-130) H 12/09/23 04:37 Glucose 94 mg/dL (65-115) 12/09/23 04:37 POC Glucose 141 mg/dL (70-110) H 12/07/23 21:34 Calculated Osmolality 283 mOsm/kg (285-295) L 12/09/23 04:37 Calcium 8.6 mg/dL (8.5-10.5) 12/09/23 04:37 Magnesium 1.4 mg/dL (1.7-2.3) L 12/09/23 04:37 Total Bilirubin 0.2 mg/dL (0.15-1.2) 12/08/23 04:02 AST 19 U/L (0-32) 12/08/23 04:02 ALT 18 U/L (0-33) 12/08/23 04:02 Alkaline Phosphatase 61 U/L (35-105) 12/08/23 04:02 Total Protein 5.9 g/dL (6.6-8.7) L 12/08/23 04:02 Albumin 3.7 g/dL (3.5-5.2) 12/08/23 04:02 Globulin 2.2 g/dL (1.3-4.6) 12/08/23 04:02 Urine Color Yellow (Yellow) 12/07/23 11:40 Urine Appearance Clear (CLEAR) 12/07/23 11:40 Urine pH 6.5 (5-7) 12/07/23 11:40 Ur Specific Allred 1.014 (1.005-1.030) 12/07/23 11:40 Urine Protein 1+ (Negative) A 12/07/23 11:40 Urine Glucose (UA) Negative (Normal) 12/07/23 11:40 Urine Ketones Trace (Negative) 12/07/23 11:40 Urine Blood Negative (Negative) 12/07/23 11:40 Urine Nitrate Negative (Negative) 12/07/23 11:40 Urine Bilirubin Negative (Negative) 12/07/23 11:40 Urine Urobilinogen 1.0 mg/dL (Negative) 12/07/23 11:40 Ur Leukocyte Esterase Negative (Negative) 12/07/23 11:40 Urine RBC 0-2 /hpf (0-2) 12/07/23 11:40 Urine WBC 0-5 /hpf (0-5) 12/07/23 11:40 Ur Squamous Epith Cells 0-5 /hpf (0-5) 12/07/23 11:40 Amorphous Sediment Not Reportable 12/07/23 11:40 Urine Bacteria None seen /hpf (NONE) 12/07/23 11:40 Hyaline Casts 4.52 /lpf 12/07/23 11:40 Blood Type A Positive 12/07/23 10:40 Rho(D) Type Rh positive 12/07/23 10:40 Antibody Screen Negative 12/07/23 10:40 Vitals Last Vital Signs Temp 98.4 F 12/09/23 07:25 Pulse 107 H 12/09/23 07:57 Resp 16 12/09/23 10:39 BP 108/68 12/09/23 07:25 Pulse Ox 99 12/09/23 07:40 O2 Del Method Nasal Cannula 12/09/23 07:40 O2 Flow Rate 3 12/09/23 08:00 Discharge Plan Discharge Patient Disposition: Home Condition: Stable Prescriptions: New oxycodone-acetaminophen 5-325 mg Tablet 1 tab PO Q4H PRN (Reason: Moderate Pain) Qty: 20 0RF Eliquis 5 mg Tablet 2.5 mg PO BID@0900,2100 Qty: 30 0RF Narcan 4 mg/actuation spray,non-aerosol 4 mg intranasal Q2M PRN (Reason: opioid overdose) Qty: 2 0RF Rx Instructions: spray 1 dose into ONE nostril; alternate nostrils w each dose until help arrives Continued aspirin [Adult Low Dose Aspirin] 81 mg tablet,delayed release (DR/EC) 81 mg PO DAILY 90 Days Qty: 90 0RF Spiriva with HandiHaler 18 mcg capsule, w/inhalation device 1 cap inhalation DAILY Qty: 30 5RF Rx Instructions: puncture 1 cap using device; one dose = 2 inhalations ipratropium-albuterol 0.5 mg-3 mg(2.5 mg base)/3 mL solution for nebulization 3 ml inhalation QID PRN (Reason: wheezing) Qty: 180 3RF mecobalamin (vitamin B12) 1,000 mcg tablet,disintegrating 1,000 mcg sublingual DAILY Rx Instructions: place tablet under tongue and allow to dissolve for at least30 secs before swallowing (DME) wheelchair See Rx Instructions .Route .MEDSUPPLY Qty: 1 0RF Rx Instructions: As directed quetiapine [Seroquel] 25 mg tablet 12.5 mg PO TID Qty: 45 3RF buspirone 15 mg tablet 15 mg PO TID Qty: 90 3RF topiramate [Topamax] 100 mg tablet 100 mg PO BID 90 Days Qty: 180 1RF levocetirizine [Xyzal] 5 mg tablet 5 mg PO DAILY Qty: 60 1RF montelukast 10 mg tablet 10 mg PO DAILY magnesium oxide 500 mg capsule 500 mg PO DAILY fluticasone propionate 50 mcg/actuation spray,suspension 1 spray INTRANASAL DAILY Qty: 16 2RF gabapentin 100 mg capsule 100 mg PO BID 90 Days Qty: 180 1RF atorvastatin [Lipitor] 40 mg tablet 40 mg PO DAILY Qty: 30 1RF bisacodyl 10 mg suppository 10 mg SC DAILY PRN (Reason: constipation) Qty: 5 0RF ondansetron 4 mg tablet,disintegrating 4 mg translingual Q4H PRN (Reason: nausea) Qty: 5 0RF lorazepam 2 mg/mL concentrate 2 mg sublingual Q4H PRN (Reason: Anxiety/Seizure) Qty: 30 0RF Rx Instructions: 0.25ml-1ml q4H PRN Anxiety/Seizure Start 0.25ml may increase to 0.5ml-1ml q4H morphine concentrate 100 mg/5 mL (20 mg/mL) solution 20 mg sublingual DIRECTED PRN (Reason: Pain/SOB) 7 Days Qty: 60 0RF Rx Instructions: 0.25ml q6H and 0.25ml Q1H PRN memantine 10 mg tablet 10 mg PO BID Prozac 20 mg capsule 20 mg PO QAM prednisone 20 mg tablet 20 mg PO DAILY omeprazole 20 mg capsule,delayed release(DR/EC) 20 mg PO BID Discontinued meloxicam 15 mg tablet 15 mg PO DAILY Qty: 90 0RF Discharge Orders: Discharge Order (Routine); Ordered 12/09/23 Ordered By: Yuniel Sierra Other Ambulatory Orders: DME: David (Order) Location: None Selected Ordered By: Yuniel Sierra Referrals: Jaron Lo DO [Physician] - 12/22/23 1:15 pm () Shira Lowery NP [Primary Care Provider] - 12/16/23 9:30 am (CBC on follow-up) Patient Instructions: Acute Wound Care (DC), Opioid Safety, Post Anesthesia Care Activity Restrictions/Additional Instructions: You are being discharged from the hospital today during which time you have been under the care of Dr. Villarreal. You had a right hip fracture. You were treated for this injury with right hip nail. You may resume you normal diet (including any special diets as directed by your primary doctor) as well as your home medications. You should follow up with you primary doctor if you have any questions regarding medication you took prior to your stay in the hospital. You may take your pain medication as prescribed. After the first few days, take your pain medication as needed. Do not drive or drink alcohol while taking your pain medication. Your injury may increase your risk of developing a blood clot,or DVT, in your arm or leg. This could potentially dislodge and travel to your lungs and become a life threatening condition called apulmonary embolus,or PE. You have been prescribed aspirin to be taken to prevent this. Frequent movement of the feet will also help prevent this from occurring. If you develop any new or worsening cough, chestpain, bloody sputum or shortness of breath, call 911 or go to the EmergencyRoom. Always keep your surgical incision/dressing clean and dry. If you experience increasing pain at your incision site, redness, swelling, increasing discharge, foul odors, or fevers (greater than 100.4), night sweats or chills you should call the office at the above number. If you feel this is an emergency you should be evaluated in the Emergency Department of a nearby hospital. Orthopedic Patient Instructions Summary: Weight Bearing: Weight-bear as tolerated Activity: As tolerated. Diet: Regular. Wound Care: Keep dressing clean and dry. Anticoagulation: Aspirin Pain Medication: Take only as needed. Ice, rest and elevation will be of great benefit. Please plan to follow-up [facility] Lo in 2 weeks. You will need to call the clinic [phone] to schedule this visit. Thank you far allowing me to part icipate in your care. Do not hesitate to call the office with any questions or concerns. Take the Eliquis for only 4 weeks Follow-up with Ortho per their instructions Note that hydrocodone and morphine can have an additive effect. Please try to avoid taking the morphine, and if needed for air hunger try to take a lower amount notifying family and nurse that you are taking. Note that you have an antidote called naloxone that family member should be aware of Follow-up with your primary care provider 3 to 5 days, CBC on follow-up Return for any concerns Discharge Attestations Time Spent in Discharge Care*: greater than 30 min Quality Metrics Clinical Quality Measures [ No reported AMI, CVA or VTE this stay] Coding Level of Care Code 06202 Total time (in minutes) for Discharge: 34 Diagnoses Closed fracture of right hip, initial encounter S72.001A Encounter type: initial encounter Laterality: right
== END 2023-12-09 13:17 | disposition home or self-care (01) | DRG 481 ==
LOC: ER 11:03 → MEDSURG 11:53
PROVIDERS: Orthopaedic Surgery; Admitting Provider Internal Medicine; Emergency Provider Family Medicine; PCP Nurse Practitioner Family; Visit Provider Internal Medicine
PROC: 0QS634Z Reposition Right Upper Femur with Internal Fixation Device, Percutaneous Approach (ICD-10-PCS; CPT 27245; principal; 2023-12-07 15:35)
DX: S72.141A Displaced intertrochanteric fracture of right femur, initial encounter for closed fracture (principal); D62 Acute posthemorrhagic anemia; E44.0 Moderate protein-calorie malnutrition; F31.81 Bipolar II disorder; J96.12 Chronic respiratory failure with hypercapnia; J96.11 Chronic respiratory failure with hypoxia; F03.918 Unspecified dementia, unspecified severity, with other behavioral disturbance; W01.0XXA Fall on same level from slipping, tripping and stumbling without subsequent striking against object, initial encounter; Y92.099 Unspecified place in other non-institutional residence as the place of occurrence of the external cause; J44.9 Chronic obstructive pulmonary disease, unspecified; Z99.81 Dependence on supplemental oxygen; Z87.820 Personal history of traumatic brain injury; F43.12 Post-traumatic stress disorder, chronic; F17.210 Nicotine dependence, cigarettes, uncomplicated; J30.2 Other seasonal allergic rhinitis; Z68.22 Body mass index [BMI] 22.0-22.9, adult; E83.42 Hypomagnesemia
CPT/HCPCS: 36415; 36416; 51702; 71045; 73502; 76000; 80048; 80053; 81003; 81015; 82962; 83735; 85025; 86850; 86900; 93005; 94640; 96374; 96375; 97110; 97116; 97161; 97530; 99285; C1713; J1170; J1720; J2270; J2405; J2704; J3475; J3490; J7030; J7512; J7626

== ENCOUNTER → 2023-12-22 13:14 | Outpatient (BNVA) | payer MEDICAID, SELFPAY | PROVIDERS: PCP Nurse Practitioner Family; Visit Provider Orthopaedic Surgery | DX: S72.001A Fracture of unspecified part of neck of right femur, initial encounter for closed fracture (principal); X58.XXXA Exposure to other specified factors, initial encounter | CPT/HCPCS: 73502; 99024 ==

== ENCOUNTER → 2024-01-19 12:50 | Outpatient (BNVA) | payer SELFPAY | PROVIDERS: PCP Nurse Practitioner Family; Visit Provider Orthopaedic Surgery | DX: S72.141A Displaced intertrochanteric fracture of right femur, initial encounter for closed fracture; X58.XXXA Exposure to other specified factors, initial encounter | CPT/HCPCS: 73502 ==

== ENCOUNTER → 2024-05-03 13:09 | Outpatient (BNVA) | payer MEDICAID, SELFPAY | PROVIDERS: PCP Nurse Practitioner Family; Visit Provider Orthopaedic Surgery | DX: S72.001A Fracture of unspecified part of neck of right femur, initial encounter for closed fracture (principal); M25.551 Pain in right hip; M54.50 Low back pain, unspecified; M79.606 Pain in leg, unspecified; X58.XXXA Exposure to other specified factors, initial encounter | CPT/HCPCS: 73502; 99214 ==

== ENCOUNTER 2024-05-20 09:13 | Outpatient (CLI) | payer MEDICAID, SELFPAY ==
--- NOTE | 2024-05-20 09:30 | MR_ITS ---
WS: [id number] MRI LUMBAR SPINE NONCONTRAST TECHNIQUE: Sagittal T1, T2 and STIR imaging. Axial T1 and T2 imaging. CLINICAL INFORMATION: M54.50 - Low back pain, unspecified COMPARISON: None. FINDINGS: Mild lumbar curve. No acute compression. No high-grade central canal stenosis. L1-L2: Normal L2-L3: Mild facet arthropathy. Spinal canal and foramen are patent. L3-L4: No significant disc bulging. Mild facet arthropathy. Spinal canal and foramen are patent. L4-L5: Mild annular bulging. Mild facet arthropathy. Spinal canal and foramen are patent. L5-S1: Mild annular bulging. Mild facet arthropathy. Spinal canal and foramen are patent. Visualized pelvic bony structures: Normal. Paravertebral soft tissues: Normal. MR/MR lumbar spine wo con* [id number] IMPRESSION: Overall no significant changes compared to previous. 1. Mild lumbar curve. No acute compression. No significant central canal steno sis. 2. Minimal annular bulging L4-L5 and L5-S1. 3. Mild facet arthropathy L3-L5. 4. No other acute findings.
== END 2024-05-20 09:14 | disposition home or self-care (01) ==
LOC: RAD 09:13
PROVIDERS: PCP Family Medicine; Visit Provider Orthopaedic Surgery
DX: M51.369 Other intervertebral disc degeneration, lumbar region without mention of lumbar back pain or lower extremity pain (principal); M79.604 Pain in right leg; M79.605 Pain in left leg; M48.56XA Collapsed vertebra, not elsewhere classified, lumbar region, initial encounter for fracture; M43.8X6 Other specified deforming dorsopathies, lumbar region; M51.379 Other intervertebral disc degeneration, lumbosacral region without mention of lumbar back pain or lower extremity pain; M47.896 Other spondylosis, lumbar region
CPT/HCPCS: 72148

== ENCOUNTER → 2024-06-07 14:32 | Outpatient (BNVA) | payer MEDICAID, SELFPAY | PROVIDERS: PCP Family Medicine; Visit Provider Orthopaedic Surgery | DX: Z09 Encounter for follow-up examination after completed treatment for conditions other than malignant neoplasm (principal) | CPT/HCPCS: 99214 ==

== ENCOUNTER → 2024-06-13 12:37 | Outpatient (BNVA) | payer MEDICAID, SELFPAY | PROVIDERS: PCP Family Medicine; Visit Provider Anesthesiology Pain Medicine | DX: M54.50 Low back pain, unspecified (principal) | CPT/HCPCS: 99214 ==

== ENCOUNTER 2024-07-12 06:00 | Outpatient (RCR) | payer MEDICAID, SELFPAY | END 2024-08-10 23:59 | disposition home or self-care (01) | LOC: WPT 06:00 | PROVIDERS: Visit Provider Orthopaedic Surgery | DX: M54.50 Low back pain, unspecified (principal); G89.29 Other chronic pain | CPT/HCPCS: 97110; 97161; 97530 ==

== ENCOUNTER 2025-01-02 09:03 | Emergency (ER) | payer MEDICAID, SELFPAY ==
[2025-01-02 09:03] VITALS: BP 119/69; PULSE 89; RESP 16; O2SAT 95
--- NOTE | 2025-01-02 09:14 | XR_ITS ---
WS: [id number] Exam: XR hip LT 2-3V wo/w pel* [id number] Date/Time of Exam: 01/02/2025 9:14 AM Reason For Exam: pain; one view pelvis too please Comparison 05/03/2024. Healed intertrochanteric fracture of the RIGHT hip noted with internal fixation. Alignment remains satisfactory. No sign of hardware complication. Normal soft tissues. The pelvis and LEFT hip are intact. XR/XR hip RT 2-3V wo/w pel* [id number] IMPRESSION: 1. Healed intertrochanteric fracture of the RIGHT hip in satisfactory position. There is internal fixation with an intramedullary yee and femoral neck screw. No sign of hardware complication.
--- NOTE | 2025-01-02 09:14 | W.ED.EXTPRO ---
HPI - Extremity Problem General: Chief complaint: Extremity Injury, Lower Stated complaint: right hip pain Time Seen by Provider: 01/02/25 09:03 Source: patient and EMS Mode of arrival: EMS Limitations: no limitations History of Present Illness: Patient is a 59-year-old female presents to ED today with complaint of lower back and right hip pain. She states she has chronic back pain from arthritis and osteoporosis. Upon arrival, she states her lower back is currently at baseline and her main concern is pain to her right hip. She states she is not having much discomfort now but states prior to arrival she felt like the hip spasmed. She does have a history of arthroplasty to that hip performed by Dr. Lo. She states she has had pain in the hip since. She has not had any injury or trauma. States she normally walks around her home without assistance but does use a walker if she goes outside or walks very far. Patient had MRI of lumbar spine earlier this year with results as follows: MR/MR lumbar spine wo con* [id number] IMPRESSION: Overall no significant changes compared to previous. 1. Mild lumbar curve. No acute compression. No significant central canal stenosis. 2. Minimal annular bulging L4-L5 and L5-S1. 3. Mild facet arthropathy L3-L5. 4. No other acute findings. Complaint: joint pain (R hip) Onset (ago): hour(s) Pain Consistency: constant Location: right and lower extremity Radiation: none Relieving factors: immobilization Exacerbating factors: range of motion, weight bearing, walking and palpation Associated symptoms: Reports no associated symptoms; Deny chest pain, fever(s) or rash Related Data Home Medications ?Medication ?Instructions ?Recorded ?Confirmed montelukast 10 mg tablet 10 mg PO DAILY respiratory 02/10/22 06/13/24 albuterol sulfate 90 mcg/actuation 2 inh inhalation Q6H 08/09/24 08/09/24 aerosol inhaler (Ventolin HFA) budesonide 160 mcg-glycopyr 9 inh inhalation 08/09/24 08/09/24 mcg-formot 4.8 mcg/actuation HFA inhaler (Breztri Aerosphere) cetirizine 10 mg tablet mg PO 08/09/24 08/09/24 ergocalciferol (vitamin D2) 1,250 1,250 mcg PO ONCE 08/09/24 08/09/24 mcg (50,000 unit) capsule famotidine 20 mg tablet 20 mg PO BID 08/09/24 08/09/24 fluticasone fur. 100 mcg-umeclid inhalation 08/09/24 08/09/24 62.5 mcg-vilant 25 mcg inhalat.powder (Trelegy Ellipta) gabapentin 600 mg tablet mg PO 08/09/24 08/09/24 hydrocodone 5 mg-acetaminophen 325 tab PO 08/09/24 08/09/24 mg tablet ipratropium 0.5 mg-albuterol 3 mg ml inhalation 08/09/24 08/09/24 (2.5 mg base)/3 mL nebulization soln meloxicam 15 mg tablet 15 mg PO DAILY 08/09/24 08/09/24 naloxone 4 mg/actuation nasal intranasal 08/09/24 08/09/24 spray (Narcan) nicotine 7 mg/24 hr daily 1 patch topical .3days 08/09/24 08/09/24 transdermal patch omeprazole 20 mg capsule,delayed mg PO 08/09/24 08/09/24 release pantoprazole 20 mg tablet,delayed mg PO 08/09/24 08/09/24 release tizanidine 4 mg tablet mg PO 08/09/24 08/09/24 topiramate 100 mg tablet mg PO 08/09/24 08/09/24 Previous Rx's ?Medication ?Instructions ?Recorded diclofenac sodium 1 % topical gel 2 g topical QID PRN right hip pain 07/28/24 #100 grams bvjrkvjpxj-yvxlgmhumzefk-npfdqbfg 1 cap PO Q6H PRN tension headache 08/24/24 50 mg-300 mg-40 mg capsule #30 caps (Fioricet) Allergies Allergy/AdvReac Type Severity Reaction Status Date / Time heparin Allergy Intermediate ALGY-Anaphy Verified 08/09/24 13:10 laxis azithromycin Allergy Unknown Unknown Verified 08/09/24 13:10 cinnamon Allergy ADR-Itching Verified 08/09/24 13:10 doxycycline Allergy Unknown Verified 08/09/24 13:10 Penicillins Allergy ALGY-Rash Verified 08/09/24 13:10 Tetracyclines Allergy unknown Verified 08/09/24 13:10 tree nut Allergy ALGY-Anaphy Verified 08/09/24 13:10 laxis Review of Systems Const: Denies: fever(s) Card: Denies: chest pain Resp: Denies: dyspnea GI: Denies: abdominal pain : Denies: flank pain, dysuria or hematuria Musc: Reports: back pain (chronic-at baseline) and joint pain (R hip); Denies: neck pain, extremity pain, extremity swelling, joint swelling, joint redness, joint warmth or limited range of motion Skin/Breast: Denies: rash Neuro: Reports: difficulty walking (secondary to R hip pain); Denies: numbness in extremities, weakness in extremities or sensory changes PFSH ED PFSH: Medical History Ex-smoker for more than 1 year Psychiatric care Seasonal allergies Protein-calorie malnutrition, moderate End stage COPD COPD (chronic obstructive pulmonary disease) Lower respiratory infection Personal history of traumatic brain injury Bipolar II disorder Provisional Chronic post-traumatic stress disorder Surgical History History of History of bilateral tubal ligation History of colonoscopy Family History Mother Cancer colon Father Cancer prostate Family/Other Cancer maternal and paternal aunts and uncles--lung Other Anesthesia complication CAD (coronary artery disease) Dementia Lung disease Psychiatric illness Denies family history of Diabetes Clotting disorder Hyperlipidemia Chronic kidney disease (CKD) Bleeding disorder Hypertension Stroke Social History Smoking and tobacco/nicotine status: former use of tobacco/nicotine Second hand smoke exposure: Yes Alcohol intake: former Substance/Drug Use: never Lives independently: Yes Household members: family Marital status: Current occupational status: disabled Pets and animals: No Do you think of yourself as: Straight/Heterosexual Current gender identity: Female Special michael needs: No Agree to transfusion: Yes Physical Exam Const: COMMON NORMALS: no acute distress, patient oriented x3, no limitations and alert GENERAL APPEARANCE: cooperative and frail appearing NUTRITIONAL APPEARANCE: underweight ORIENTATION/CONSCIOUSNESS: Yes awake, Yes oriented to person, Yes oriented to place and Yes oriented to time HENMT: COMMON NORMALS: normocephalic and atraumatic HEAD & SCALP: normal to inspection, normocephalic and atraumatic Neck/C-Spine: COMMON NORMALS: full ROM, no lymphadenopathy, supple and no meningeal signs Chest: COMMONS NORMALS: normal inspection of the chest Resp: COMMON NORMALS: normal respiratory effort and clear to auscultation bilaterally AUSCULTATION: clear to auscultation bilaterally OTHER: chronically on oxygen Cardio: COMMON NORMALS: regular rate and regular rhythm RATE: regular rate RHYTHM: regular rhythm GI: COMMON NORMALS: Normal to inspection, nondistended, normoactive bowel sounds present, Soft to palpation, non-tender, No hepatosplenomegaly present and no masses PALPATION: Yes Soft to palpation and Yes No hepatosplenomegaly present : COMMON NORMALS: Yes no CVA tenderness BLADDER/KIDNEY EXAM: Yes no CVA tenderness Back/Pelvis: COMMON NORMALS: no CVA tenderness and thoracic and lumbar spine normal to inspection Extremity: COMMON NORMALS: normal to inspection, capillary refill normal, no joint enlargement, no clubbing, cyanosis or edema, no calf tenderness and no pedal edema GENERAL: Yes normal exam except as noted RIGHT LOWER EXTREMITY: Yes hip joint (TTP posteriolateral R hip) Right hip: Yes inspection (normal gross inspection) and Yes neurovascular exam (normal) Neuro: COMMON NORMALS: patient oriented x3, moves all extremities, no focal motor deficits and no sensory deficits noted SENSORIUM/ORIENTATION: Yes alert, Yes oriented to person, Yes oriented to place and Yes oriented to time MENINGEAL SIGNS: Yes no meningeal signs Skin: COMMON NORMALS: no rashes or lesions noted GENERAL SKIN EXAM: no rashes or lesions noted Course Vital Signs: Vital signs: Vital Signs Pulse Rate 78 01/02/25 10:17 Respiratory Rate 16 01/02/25 09:03 Blood Pressure 113/95 01/02/25 10:17 Pulse Oximetry 100 01/02/25 10:17 Oxygen Delivery Me thod Nasal Cannula 01/02/25 10:17 MDM - Extremity (Nontraumatic) Medical Decision Making Patient feels better after medications given here. She states she will follow-up with her primary care provider on Thursday. XR of the hip/pelvis obtained here and unremarkable. Medical Records I reviewed the patient's medical records. Lab Data Radiology Impressions Hip/Pelvis X-Ray 01/02/25 09:14 IMPRESSION: 1. Healed intertrochanteric fracture of the RIGHT hip in satisfactory position. There is internal fixation with an intramedullary yee and femoral neck screw. No sign of hardware complication. All radiology interpretation(s) finalized by discharge Discharge Plan Discharge Patient Disposition: Home Clinical Impression: Hip pain, right Condition: Stable Prescriptions: No Action gabapentin 600 mg tablet PO ipratropium-albuterol 0.5 mg-3 mg(2.5 mg base)/3 mL solution for nebulization inhalation cetirizine 10 mg tablet PO tizanidine 4 mg tablet PO hydrocodone-acetaminophen 5-325 mg tablet PO meloxicam 15 mg tablet 15 mg PO DAILY pantoprazole 20 mg tablet,delayed release (DR/EC) PO famotidine 20 mg tablet 20 mg PO BID omeprazole 20 mg capsule,delayed release(DR/EC) PO ergocalciferol (vitamin D2) 1,250 mcg (50,000 unit) capsule 1,250 mcg PO ONCE albuterol sulfate [Ventolin HFA] 90 mcg/actuation HFA aerosol inhaler 2 inh inhalation Q6H topiramate 100 mg tablet PO nicotine 7 mg/24 hr patch 24 hour 1 patch topical .3days naloxone [Narcan] 4 mg/actuation spray,non-aerosol intranasal Trelegy Ellipta 100-62.5-25 mcg blister with device inhalation Breztri Aerosphere 160-9-4.8 mcg/actuation HFA aerosol inhaler inhalation montelukast 10 mg tablet 10 mg PO DAILY diclofenac sodium 1 % gel 2 g topical QID PRN (Reason: right hip pain) Qty: 100 2RF Rx Instructions: apply to right hip ekdfisjnyv-muejewudjsyyn-beog [Fioricet] 50-300-40 mg capsule 1 cap PO Q6H PRN (Reason: tension headache) Qty: 30 0RF Discharge Orders: Discharge ED (Routine); Ordered 01/02/25 Ordered By: Jennifer Fulton Patient Instructions: Patient Portal & Rosa Instructions Activity Restrictions/Additional Instructions: As we discussed, please follow-up with primary care on Thursday as scheduled. The x-ray of your right hip today appeared normal with no evidence of hardware complication. Print Language: Yoruba Coding Level of Care Code ED Engineering Document Control Clerk for Mariel Serna
--- OUTSIDE RECORDS SUMMARY | 2025-01-02 09:22 | XMS_ITS | Clinical Summary ---
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 Specific Level of Allergen IGE Class kU/L Specific IGE Antibody ----- --------- 0 <0.10 Absent/Undetectable 0/1 0.10-0.34 Very Low Level 1 0.35-0.69 Low Level 2 0.70-3.49 Moderate Level 3 3.50-17.4 High Level 4 17.5-49.9 Very High Level 5 50-100 Very High Level 6 >100 Very High Level The clinical relevance of allergen results of 0.10-0.34 kU/L are undetermined and intended for specialist use. Allergens denoted with a include results using one or more analyte specific reagents. In those cases, the test was developed and its analytical performance characteristics have been determined by [email or web address]. It has not been cleared or approved by the U.S. Food and Drug Administration. This assay has been validated pursuant to the CLIA regulations and is used for clinical purposes. Test Performed at: [email or web address], [id number] [place] [phone] Johana Sapp MD,PhD,[place] Blood 12/14/2024 1:36 PM CDT 12/15/2024 4:03 AM CDT Quirino Rios MD CHEMISTRY ORDERABLES Mima l Result [facility] [phone] [facility], [address] [place] [address] * TRYPTASE (10/28/2024 11:36 AM CDT) TRYPTASE 2.1 <11.0 mcg/L [email or web address] Comment: The Tryptase test, fluorescent enzyme immunoassay (FEIA), measures both the Alpha and Beta forms of Tryptase. Measuring both forms of Tryptase increases sensitivity for the diagnosis of mastocytosis, and mast cell degranulation as a cause of anaphylaxis. Test Performed at: [facility] [address] [facility] [place], [place] Norris Gibbons M.D.,PhD Blood 10/28/2024 11:3 6 AM CDT 10/29/2024 2:52 AM CDT Marina Camargo [facility] CHEMISTRY ORDERABLES Fin al Result Performing Organization Address [facility]/ZIP Co de Phone Number [facility] [phone] [facility]/[place] [address] [facility] [place] [address] * HISTAMINE (10/28/2024 11:36 AM CDT) Pathologist [facility] HISTAMINE <1.5 < OR = 1.8 ng/mL [facility], Comment: This test was performed using a kit that has not been cleared or approved by the FDA. The analytical performance characteristics of this test have been determined by [facility]. This test should not be used for diagnosis without confirmation by other medically established means. Test Performed at: [email or web address], [address] [place] [phone] Johana Sapp MD,PhD,KILLIAN Blood 10/28/2024 11:3 6 AM CDT 10/29/2024 2:52 AM CDT Marina Wongpps [facility] CHEMISTRY ORDERABLES Fin al Result Performing Organization Address [facility] Co de Phone Number [facility] [phone] [email or web address], [address] [place] [address] * (ABNORMAL) CBC WITH DIFFERENTIAL (10/28/2024 11:36 AM CDT) Pathologist [facility] WBC 5.6 3.8 - 10.8 Thousand/u L [facility] RBC 4.22 3.80 - 5.10 Million/uL [facility] HEMOGLOBIN 12.8 11.7 - 15.5 g/dL [facility] HEMATOCRIT 40.9 35.0 - 45.0 % [facility] MCV 96.9 80.0 - 100.0 fL [facility] MCH 30.3 27.0 - 33.0 pg [facility] MCHC 31.3(L) 32.0 - 36.0 g/dL [facility] Comment: For adults, a slight decrease in the calculated MCHC value (in the range of 30 to 32 g/dL) is most likely not clinically significant; however, it should be interpreted with caution in correlation with other red cell parameters and the patient's clinical condition. RDW 12.7 11.0 - 15.0 % [facility] PLATELETS 208 140 - 400 Thousand/u L [facility] MPV 11.3 7.5 - 12.5 fL [facility] NEUTROPHIL ABSOLUTE 2,834 1,500 - 7,800 cells/uL [facility] LYMPHOCYTE ABSOLUTE 1,876 850 - 3,900 cells/uL [facility] MONOCYTE ABSOLUTE 644 200 - 950 cells/uL [facility] EOSINOPHIL ABSOLUTE 168 15 - 500 cells/uL [facility] BASOPHILS ABSOLUTE 78 0 - 200 cells/uL [facility] NEUTROPHIL 50.6 % [facility] LYMPHOCYTES 33.5 % [facility] MONOCYTE 11.5 % [facility] EOSINOPHILS 3.0 % [facility] BASOPHILS 1.4 % [facility] Comment: Test Performed at: [employer] [address] [phone] Mikki Dominguez MD Blood 10/28/2024 11:3 6 AM CDT 10/29/2024 2:52 AM CDT Marina Camargo BANKING ANALYST HEMATOLOGY ORDERABLES Fi nal Result [facility] [phone] [email or web address] [address] [place] [phone] * (ABNORMAL) COMPREHENSIVE METABOLIC PANEL (10/28/2024 11:36 AM CDT) GLUCOSE 98 65 - 99 mg/dL [facility] Comment: Fasting reference interval BUN 12 7 - 25 mg/dL [facility] CREATININE 0.47(L) 0.50 - 1.03 mg/dL [facility] GFR 111 > OR = 60 mL/min/1.7 3m2 [facility] BUN/CREAT RATIO 26(H) 6 - 22 (calc) [facility] SODIUM 131(L) 135 - 146 mmol/L [facility] POTASSIUM 4.0 3.5 - 5.3 mmol/L [facility] CHLORIDE 91(L) 98 - 110 mmol/L [facility] CO2 35(H) 20 - 32 mmol/L [facility] CALCIUM 9.0 8.6 - 10.4 mg/dL [facility] TOTAL PROTEIN 6.1 6.1 - 8.1 g/dL [facility] ALBUMIN 4.3 3.6 - 5.1 g/dL [facility] GLOBULIN 1.8(L) 1.9 - 3.7 g/dL (calc) [facility] ALBUMIN/GLOBULIN RATIO 2.4 1.0 - 2.5 (calc) [facility] BILIRUBIN TOTAL 0.4 0.2 - 1.2 mg/dL [facility] ALKALINE PHOSPHATASE 39 37 - 153 U/L [facility] AST 20 10 - 35 U/L [facility] ALT 16 6 - 29 U/L [facility] Comment: Test Performed at: [email or web address] [address] [place] [address] Mikik Dominguez MD Blood 10/28/2024 11:3 6 AM CDT 10/29/2024 2:52 AM CDT Marina Lloyd Raman BANKING ANALYST CHEMISTRY ORDERABLES Fin al Result [facility] [phone] [facility] [address] [address] [phone] * MAMMO 3D CLEMENTINE SCREEN BILAT W OR WO CAD (03/09/2024 10:41 AM INPUT OUTPUT CLERK) Anatomical Region Laterality Modality Breast Bilateral Mammography, Dig ital Radiography Impressions 03/22/2024 8:42 PM INPUT OUTPUT CLERK : No mammographic evidence of malignancy. BI-RADS ASSESSMENT: 1 - Negative RECOMMENDATION: Routine annual screening mammography. Narrative 03/22/2024 8:42 PM INPUT OUTPUT CLERK EXAM: MAMMO SCRN BILAT 3D CLEMENTINE W OR WO CAD INDICATION: Screening COMPARISON: 12/15/2017 MAMMO SCREEN BILAT W OR WO CAD BREAST COMPOSITION: The breasts are heterogeneously dense, which may obscure small masses. FINDINGS: RIGHT BREAST: There are no suspicious masses, calcifications, or areas of architectural distortion. LEFT BREAST: There are no suspicious masses, calcifications, or areas of architectural distortion. Quirino Rios MD MAMMO ORDERABLES Final Re sult * COLON CANCER SCREEN, STOOL DNA (03/08/2024 7:00 PM INPUT OUTPUT CLERK) COLOGUARD RESULT Negative Negative [facility] Comment: NEGATIVE TEST RESULT. A negative Cologuard result indicates a low likelihood that a colorectal cancer (CRC) or advanced adenoma (adenomatous polyps with more advanced pre-malignant features) is present. The chance that a person with a negative Cologuard test has a colorectal cancer is less than 1 in 1500 (negative predictive value >99.9%) or has an advanced adenoma is less than 5.3% (negative predictive value 94.7%). These data are based on a prospective cross-sectional study of 10,000 individuals at average risk for colorectal cancer who were screened with both Cologuard and colonoscopy. (Maurilio Pérez al, N Engl J Med 2014;370(14):8502-0673) The normal value (reference range) for this assay is negative. COLOGUARD RE-SCREENING RECOMMENDATION: Periodic colorectal cancer screening is an important part of preventive healthcare for asymptomatic individuals at average risk for colorectal cancer. Following a negative Cologuard result, the [employer] Society and U.S. [facility]-Society Task Force screening guidelines recommend a Cologuard re-screening interval of 3 years. References: [employer] Society Guideline for Colorectal Cancer Screening: https://www.cancer.org/cancer/dclzq-nujccp-tmrjte/pcgngnmlf-moxfxwrnc-pcrphrs/ac s-rec ommendations.html.; Laurent DK, Ethel CR, Balta DoeK, Colorectal Cancer Screening: Recommendations for Physicians and Patients from the U.S. Multi-Society Task Force on Colorectal Cancer Screening , Am J Gastroenterology 2017; 112:0559-3206. TEST DESCRIPTION: Composite algorithmic analysis of stool DNA-biomarkers with hemoglobin immunoassay. Quantitative values of individual biomarkers are not reportable and are not associated with individual biomarker result reference ranges. Cologuard is intended for colorectal cancer screening of adults of either sex, 45 years or older, who are at average-risk for colorectal cancer (CRC). Cologuard has been approved for use by the U.S. FDA. The performance of Cologuard was established in a cross sectional study of average-risk adults aged 50-84. Cologuard performance in patients ages 45 to 49 years was estimated by sub-group analysis of near-age groups. Colonoscopies performed for a positive result may find as the most clinically significant lesion: colorectal cancer [4.0%], advanced adenoma (including sessile serrated polyps greater than or equal to 1cm diameter) [20%] or non- advanced adenoma [31%]; or no colorectal neoplasia [45%]. These estimates are derived from a prospective cross-sectional screening study of 10,000 individuals at average risk for colorectal cancer who were screened with both Cologuard and colonoscopy. (Maurilio Pérez al, N Engl J Med 2014;370(14):7444-5140.) Cologuard may produce a false negative or false positive result (no colorectal cancer or precancerous polyp present at colonoscopy follow up). A negative Cologuard test result does not guarantee the absence of CRC or advanced adenoma (pre-cancer). The current Cologuard screening interval is every 3 years. ([employer] Society and U.S. Multi-Society Task Force). Cologuard performance data in a 10,000 patient pivotal study using colonoscopy as the reference method can be accessed at the following location: www.[employer]/results. Additional description of the Cologuard test process, warnings and precautions can be found at www.cologBlenderHouserd.com. Stool STOOL SPECIMEN / Unknown 03/08/2024 7:00 PM INPUT OUTPUT CLERK 03/11/2024 4:10 PM INPUT OUTPUT CLERK Quirino Rios MD BODY FLUIDS AND STOOLS Fi nal Result [facility] CLIA # [id number] [address] , [address] [place] [address] from Last 3 Months or Most Recently Relevant to Health Maintenance Insurance [place]ICA[place] * Guarantor: MARLIN SCHMIDT Account Type Relation to Patient Date of Phone Billing Address Personal/Family [address] [place] [address] [facility] * Guarantor: [facility] Account Type Relation to Patient Date of Phone Billing Address Corporate [place] [address] [facility] Member Subscriber Plan / Payer (Ef fective for All Dates) Name:Marlin Schmidt Relation to Subscriber:Self Name:Marlin Schmidt Payer ID:Not on file Group ID:Not on file Type:Hospice Address: [address] [address] Advance Directives For more information, please contact: [phone] * Full Code (Latest Code Status on File) Date Activated Date Inactivated Comments 11/23/2024 9:51 AM 11/23/2024 12:51 PM Care Teams Public Health Officer Relationship Specialty Start Date End Date Quirino Rios MD [address] [address] PCP - General Family Practice 02/08/24
[2025-01-02] MEDS: morphine 4 mg/mL SDV 1 mL IM (09:31)
[2025-01-02] MEDS: orphenadrine 30 mg/mL Inj 2 mL IM (09:31)
[2025-01-02 10:17] VITALS: BP 113/95; PULSE 78; O2SAT 100
--- NOTE | 2025-01-02 10:18 | PC.NURSE ---
patient reports she is typically on 2 L NC at home, placed on 2 L NC.
[2025-01-02 10:59] VITALS: BP 113/95; PULSE 75; O2SAT 100
== END 2025-01-02 11:04 | disposition home or self-care (01) ==
PROVIDERS: Emergency Provider Physician Assistant
DX: M25.551 Pain in right hip (principal); Z87.81 Personal history of (healed) traumatic fracture
CPT/HCPCS: 73502; 96372; 99284; J1100; J1885; J2270; J2360